=== PATIENT | female | born 1975 | race Caucasian/White ===

== ENCOUNTER 2019-07-15 04:25 | Emergency (ER) | payer BC, SELFPAY ==
[2019-07-15 04:27] VITALS: BP 134/92; PULSE 74; RESP 16; TEMP 36.4; O2SAT 97; BMI 28.3
--- NOTE | 2019-07-15 04:46 | ED.VIS.GEN ---
History of Present Illness Chief Complaint: Mental Health Informant: Patient Narrative: Patient presents for psychiatric evaluation. She states she is a longstanding history of essentially just being scared of everything. She states she has a big fear of being around people. She specifically states this is not related to the current pandemic but is been ongoing for quite some time. She has a hard time functioning in public. She has been on leave from her job since 01 March and is scheduled to go back to work in July. She states as that time when comes closer her symptoms seem to worsen. She currently has an apartment however states that she has been staying with a friend for the past couple of years because she is scared to even be on her own at her apartment. She does admit to intermittent suicidal thoughts. She does report a plan stating I have plenty of pills. She has never attempted in the past. Patient also states nurse that she thinks she has a yeast infection. She has noted some itching and burning with urination and a slight discharge. - Past Medical History (1) Hypothyroid Status: Chronic Past Medical History - Allergies and Home Meds Allergies/Adverse Reactions: Allergies No Known Allergies Allergy (Verified 07/15/19 04:32) Primary Care Physician: Tavo Winslow MD [Primary Care Provider] - Doctors: Scheduled to see a psychiatrist in the [place] area Prior records reviewed: Yes Lives: Friends Smoking Status: Never smoker Review of Systems General: Denies: Chills, Fever Eyes: Denies: Visual changes - bilaterally ENT: Denies: Bilateral ear pain Cardiovascular: Denies: Chest pain Respiratory: Denies: Dyspnea, Cough Gastrointestinal: Denies: Abdominal pain, Nausea, Vomiting, Diarrhea Genitourinary: Denies: Dysuria Musculoskeletal: Denies: Swelling, Extremity Pain Skin: Denies: Rash Neurological: Denies: Headache Psych: Reports: Anxiety, Suicidal thoughts Allergy: Denies: Uticaria Physical Exam Vital Signs/Narrative: Vital Signs Temp Pulse Resp BP Pulse Ox 07/15/19 04:27 97.5 F L 74 16 134/92 H 97 Inital Vital Signs reviewed: Yes General: Well nourished, Well developed Head: Normocephalic Eyes: Perrl, EOMI ENT: Moist mucous membranes Neck: Supple Cardiovascular: Regular rate, Regular rhythm Respiratory: No distress, CTA bilaterally Abdomen: Soft, Nontender, Nondistended : - - Mild yeast noted around the vaginal introitus. No significant discharge noted. No lesions or blisters. Back: Nontender Extremities: Nontender Skin: Normal color, No rash Neurological: Alert, Oriented x3 Psychological: - - Patient with a depressed affect and poor eye contact. She does admit to vague intermittent suicidal thoughts. She does state that she has at least one plan of taking pills. Diagnostic/Tx/Re-eval Laboratory Results 07/15/19 07/15/19 07/15/19 04:50 04:50 04:50 WBC 6.4 RBC 3.88 L Hgb 10.6 L Hct 33.1 L MCV 85.3 MCH 27.3 MCHC 32.0 RDW Std Deviation 42.7 RDW Coeff of Sonia 13.8 Plt Count 344 MPV 9.7 Immature Gran % (Auto) 0.300 Neut % (Auto) 50.2 Lymph % (Auto) 38.2 [place] % (Auto) 7.5 Eos % (Auto) 3.0 Baso % (Auto) 0.8 Absolute Neuts (auto) 3.2 Absolute Lymphs (auto) 2.43 Nucleated RBC % 0 Sodium 138 Potassium 3.6 Chloride 107 Carbon Dioxide 26.0 Anion Gap 5 BUN 15 Creatinine 0.86 Estim Creat Clear Calc 75.90 Est GFR (MDRD) Af Amer 92 Est GFR (MDRD) Non-Af 76 BUN/Creatinine Ratio 17.4 Glucose 99 Calcium 8.5 TSH 10.80 H Serum , Qual Urine Color Urine Clarity Urine pH Ur Specific [place] Urine Protein Urine Glucose (UA) Urine Ketones Urine Occult Blood Urine Nitrite Urine Bilirubin Urine Urobilinogen Ur Leukocyte Esterase Urine RBC Urine WBC Ur Squamous Epith Cells Urine Bacteria Urine Mucus Urine Yeast Urine Opiates Screen Urine Methadone Screen Ur Barbiturates Screen Ur Phencyclidine Scrn Ur Amphetamines Screen U Methamphetamin-MDMA U Benzodiazepines Scrn Urine Cocaine Screen U Cannabinoids Screen Ur Drug Screen Comment Ethyl Alcohol < 3.0 07/15/19 07/15/19 07/15/19 04:50 05:00 05:00 WBC RBC Hgb Hct MCV MCH MCHC RDW Std Deviation RDW Coeff of Sonia Plt Count MPV Immature Gran % (Auto) Neut % (Auto) Lymph % (Auto) [place] % (Auto) Eos % (Auto) Baso % (Auto) Absolute Neuts (auto) Absolute Lymphs (auto) Nucleated RBC % Sodium Potassium Chloride Carbon Dioxide Anion Gap BUN Creatinine Estim Creat Clear Calc Est GFR (MDRD) Af Amer Est GFR (MDRD) Non-Af BUN/Creatinine Ratio Glucose Calcium TSH Serum , Qual NEGATIVE Urine Color Yellow Urine Clarity Cloudy Urine pH 5.0 Ur Specific [place] 1.030 Urine Protein 30 H Urine Glucose (UA) Normal Urine Ketones 5 H Urine Occult Blood 25 H Urine Nitrite Negative Urine Bilirubin 1 H Urine Urobilinogen 4 H Ur Leukocyte Esterase 500 H Urine RBC 5-10 SEEN Urine WBC 10-25 SEEN Ur Squamous Epith Cells 10-25 SEEN Urine Bacteria 0 SEEN Urine Mucus 0 SEEN Urine Yeast 1+ Urine Opiates Screen NEGATIVE Urine Methadone Screen NEGATIVE Ur Barbiturates Screen NEGATIVE Ur Phencyclidine Scrn NEGATIVE Ur Amphetamines Screen NEGATIVE U Methamphetamin-MDMA NEGATIVE U Benzodiazepines Scrn NEGATIVE Urine Cocaine Screen NEGATIVE U Cannabinoids Screen NEGATIVE Ur Drug Screen Comment Ethyl Alcohol - Medical Decision Making Patient was given Diflucan here for her yeast infection. She was given a dose of Synthroid. She does admit that she has not been very compliant in taking her Synthroid. We discussed the importance of taking this medication regularly. Counseling center is been contacted to speak with the patient. Patient will be signed out to oncoming physician pending this evaluation. ED Disposition - Plan for ED Patient: Referrals: Tavo Winslow MD [Primary Care Provider] -
[2019-07-15 04:58] LABS: Absolute Lymphocyte Count 2.43 X10^3/uL (0.83-4.51); Absolute Neutrophil Count 3.2 X10^3/uL (2.0-7.7); Basophil# 0.05 X10^3/uL; Basophil% 0.8 % (0-1); Eosinophil# 0.19 X10^3/uL; Hematocrit 33.1 % (37-47); Hemoglobin 10.6 g/dL (12.0-15.0); Lymphocyte # 2.43 X10^3/ul (4.0); Lymphocyte % 38.2 % (19-41); Mean Corpuscular Hgb 27.3 pg (27.0-32.0); Mean Corpuscular Volume 85.3 fL (81-99); Mean Platelet Vol. 9.7 fl (6.2-12.0); Monocyte# 0.48 X10^3/uL; Monocyte% 7.5 % (0-10); NRBC Flagged by Analyzer 0 % (0-5); Neutrophil # 3.19 X10^3/uL (2.7-7.7); Neutrophil % 50.2 % (47-70); Platelet Count 344 K/mm3 (150-450); RBC Distribution Width CV 13.8 % (11.6-14.6); RBC Distribution Width SD 42.7 fl (35.1-43.9); Red Blood Count 3.88 M/mm3 (4.2-5.4); White Blood Count 6.4 K/mm3 (4.4-11.0)
[2019-07-15 05:08] LABS: Bacteria 0 SEEN /hpf (None Seen); Mucous, Urine 0 SEEN /hpf (<or=2+)
[2019-07-15 05:09] LABS: Color, Urine Yellow (Yellow); Glucose, Dipstick Normal (Normal); Ketone-Dipstick 5 mg/dl (Negative); Leukocyte Esterase-Dipstick 500 /ul (Negative); Nitrite-Dipstick Negative (Negative); Occult Blood-Urine 25 /ul (Negative); Protein-Dipstick 30 mg/dl (Negative); Urine Clarity Cloudy (Clear); Urine Urobilinogen 4 mg/dl (Normal)
[2019-07-15 05:19] LABS: Urine Bilirubin Dipstick 1 mg/dL (Negative)
[2019-07-15 05:21] LABS: Red Blood Cells-Urine 5-10 SEEN /hpf (0-5); Squamous Epithelial Cells - UA 10-25 SEEN /hpf (5-10); White Blood Cells 10-25 SEEN /hpf (0-5)
[2019-07-15 05:22] LABS: Yeast-Urine 1+ /hpf (None Seen)
[2019-07-15 05:32] LABS: Internal QC Validated? YES +Cl - CLEAR BKGD; Pregnancy, Serum, hCG Quali. NEGATIVE Negative
[2019-07-15 05:34] LABS: Anion Gap 5 (5-15); BUN 15 mg/dL (7-18); BUN/Creat Ratio 17.4 RATIO (10-20); Calcium,Total 8.5 mg/dL (8.5-10.1); Chloride 107 mmol/L (98-107); Creatinine, Serum 0.86 mg/dL (0.55-1.02); EST Glomerular Filtration Rate 76 mL/min (>60); Est Glom Filt Rate - Afr Amer 92 mL/min (>60); Glucose 99 mg/dL (74-106); Potassium 3.6 mmol/L (3.5-5.1); Sodium Level 138 mmol/L (136-145)
[2019-07-15 05:35] LABS: Amphetamine Urine VISTA NEGATIVE (<1000 ng/mL); Barbiturate Urine VISTA NEGATIVE (< 200 ng/mL); Benzodiazepine Urine VISTA NEGATIVE (< 200 ng/mL); Cocaine Urine VISTA NEGATIVE (< 300 ng/mL); Ecstacy Urine VISTA NEGATIVE (< 500 ng/mL); Methadone Urine VISTA NEGATIVE (< 300 ng/mL); PCP Urine VISTA NEGATIVE (< 25 ng/mL); THC Urine VISTA NEGATIVE (< 50 ng/mL); Vista UDS pH Range 5
[2019-07-15 05:36] LABS: Alcohol, Blood (Medical)-Serum < 3.0 mg/dL
[2019-07-15] MEDS: Fluconazole 100 MG Tablet 200 MG PO (06:00)
[2019-07-15] MEDS: Levothyroxine 100 MCG Tablet PO (06:01)
--- NOTE | 2019-07-15 06:14 | NURSING ---
TALKED TO CRISIS AT 0613
[2019-07-15 06:47] VITALS: RESP 16
--- NOTE | 2019-07-15 08:56 | ED.VISSUMM ---
- ER Visit Summary Date of Service: 07/15/19 Chief Complaint: [Addendum to initial dictation by Dr. Nava] History of Present Illness: The patient is a 43 F [turned over to me pending evaluation by counseling center. Patient presented to the ER with complaint essentially of anxiety and being afraid of everything. Patient was evaluated by the counseling center and it was not felt she met any criteria for hospitalization at this time. Patient is able to contract for safety. She denied being suicidal at this time. Patient has a appointment with psychiatrist in 10 days.] Physical Examination: [HEENT-PERRLA, EOMI. Cranial nerves II through XII grossly intact. TMs clear. Mucous membranes moist. No adenopathy. Cardiovascular-regular rate and rhythm without murmur or ectopy Lungs-clear to auscultation, chest wall stable without crepitus or subcu emphysema Abdomen-normoactive bowel sounds, soft, nontender, no rebound or rigidity, no peritoneal signs. Extremities-intact ?4, normal range of motion, normal pulses, atraumatic] Test Results: [] Emergency Department Course and Treatment: [] Treatment Plan: [Patient will be given a prescription for Ativan as needed for anxiety. Patient will follow-up with her psychiatrist. Patient advised to return if her condition should worsen anyway or thoughts of suicide or if she felt she could not keep her self safe.] Disposition: [Discharged home in stable condition] Impression: [Anxiety] This note was generated with [employer] dictation software. It may contain incorrect words, spelling, and punctuation that were not noted in review of the chart prior to signing ED Disposition - Plan for ED Patient: Referrals: Tavo Winslow MD [Primary Care Provider] -
--- NOTE | 2019-07-15 08:57 | ED.DEP ---
ED Disposition - Plan for ED Patient: Instructions: ED Stress React Prescriptions: Lorazepam [Ativan] 1 mg PO TID PRN #10 tab PRN Reason: Anxiety Prescription Printed Referrals: Tavo Winslow MD [Primary Care Provider] - Additional Instructions: See your psychiatrist as scheduled
[2019-07-15 09:08] VITALS: BP 115/85; PULSE 73; RESP 18; O2SAT 100
== END 2019-07-15 09:48 | disposition home or self-care (01) ==
LOC: ED 05:10
PROVIDERS: Emergency Provider Emergency Medicine; PCP Family Medicine
DX: F41.9 Anxiety disorder, unspecified (principal); E03.9 Hypothyroidism, unspecified; R45.851 Suicidal ideations
CPT/HCPCS: 36415; 80048; 80307; 80320; 81001; 84443; 84703; 85025; 99283; G0480

== ENCOUNTER 2020-01-08 09:00 | Outpatient (RCR) | payer MEDICAID, SELFPAY ==
--- NOTE | 2020-01-08 09:00 | BH.COMM ---
Communication Note - Communication with Client Communication Note: Met with patient to complete inital paperwork. No significant changes since pre-admission screening. Completed [place] [facility] Screening. She reports last SI occured on 01/06/20. Reports longstanding fleeting SI with thoughts of methods, however no hx of attempts. Reports that thoughts last usually less than a minute, occur 2-5 times weekly, and are easy to control. Protective factor is jehovah's witness. Does have access to a gun however it is not kept in her house. We had a long discussion on reducing access to means and she was encouraged to have family/friends hold onto gun till end of IOP. She was hesitant however stated she understood and keeps it outside her house for that reason. Does not present as imminent danger to herself due to no active SI, plan, intent, or hx of attempts. Protective factors. Future-oriented. No information which would necessite involuntary admission.
--- NOTE | 2020-01-08 09:00 | BH.SGPN.GN ---
Behaviors/Verbalizations/Mental Status: []Client alert and oriented, casually dressed. Eye contact good. Motor activity appropriate. Speech within normal limits. Affect restricted, mood anxious. Thoughts linear, logical, no signs of hallucinations or delusions. Reviewed client?s symptom tracker, no risk or plan for suicide ideation as of 01/08/20. Client Response/Progress/Benefit: []Client responded well to session and listened to other group members throughout group. Client presented as anxious as it was her first day of IOP and stated ?I am not a talker.? Client reports questioning how to think, feel, or behave. Client benefited from group as she was able to see what process group entails and the importance of being vulnerable. Progress noted as client spoke at the end of group, after shaking her head no at the beginning of group to talking. Client will continue IOP to improve daily functioning, prevent decompensation, and increase the use of healthy coping skills. Narrative Note: []
--- NOTE | 2020-01-08 10:05 | BH.SGPN.GN ---
Behaviors/Verbalizations/Mental Status: []Client alert and oriented, casually dressed and appropriately groomed. Eye contact fair. Motor activity appropriate. Speech soft. Affect constricted, mood anxious. Thoughts linear, logical, no signs of hallucinations or delusions. Client Response/Progress/Benefit: []Client receptive to session, passive participant and listened attentively to peers. Listened as the group brainstormed the positive and negative aspects of stress on physical and mental health. Client often nodding at examples of how stress impacts the body. Client related to peers who mentioned issues with memory when stressed. Client declined to share her stress jar, but client mentioned in process group that client feels lost in life which has been causing internal conflict. Seemed to benefit from increased awareness of personal stressors and understanding impact of stress of the mind and body. Client?s first day of IOP. Will continue tx to prevent decompensation, reduce negative thinking, and learn healthy coping skills. Narrative Note: []
--- NOTE | 2020-01-08 11:11 | BH.SGPN.GN ---
Behaviors/Verbalizations/Mental Status: [] Client alert and oriented, casually dressed and groomed. Eye contact good. Motor activity appropriate. Speech within normal limits. Affect congruent, mood depressed and anxious. Thoughts linear, logical, no signs of delusions or hallucinations. Client Response/Progress/Benefit: []Client engaged in session AEB listening attentively to others, providing some input, and taking notes throughout. Client remained attentive during discussion about the 4 A's of managing stress and discussed connecting with the various benefits of each. Identified she often struggles with accepting stressors outside her control and tries to fix them rather than avoid further engaging. Expressed feeling unsure as to which of her current stressors she would like to begin addressing and shared instead that she would like to take some additional time to review her stress jar and better determine which would be best to begin focusing on. Client seemed to benefit from increased awareness of the impact of stress on mental health and increasing repertoire of stress management strategies. Progress limited as it was clients first day in the IOP program. Will continue IOP tx to promote use of healthy coping skills, improve symptom management, as well as prevent decompensation. Narrative Note: []
--- NOTE | 2020-01-09 09:02 | BH.SGPN.GN ---
Behaviors/Verbalizations/Mental Status: []Client alert and oriented, neatly dressed and groomed. Eye contact good. Motor activity appropriate. Speech within normal limits. Affect constricted, mood depressed and anxious Thoughts linear, logical, no signs of hallucinations or delusions. Reviewed client?s symptom tracker, no risk for suicidal ideation, plan, or intent as of 01/09/20. Client reports having thoughts of wishing she did not exist, but denies having thoughts of actually wanting to hurt herself. Client Response/Progress/Benefit: []Client responded well to session, appeared depressed, but was receptive to feedback. Clients feeling worthless this morning and afraid of everything in life. Client received encouragement and emotional support from the group on challenging distortions that lead to feelings of worthlessness. Client shared she has always tied her worth to her ability to work. The group helped client realize other ways she has worth. Appeared to benefit from connecting with peers and gaining emotional support. Will continue IOP tx to prevent decompensation, improve use of healthy coping skills, and reduce distortions. Narrative Note: []
--- NOTE | 2020-01-09 14:41 | BH.MDN_ITS ---
Multi-Disciplinary Note - Note 60-min Individual Time Started:: 10:50 Date: 01/09/20 Purpose of session/treatment goals addressed:: The purpose of this session was to gather information on client's current stressors, symptoms, and treatment goals. Another goal was to build rapport and provide psychoeducation. Eye Contact:: Fair Motor Activity:: Restless Appearance:: Casual Speech:: Tangential, Soft Mood:: Anxious, Dysthymic Affect:: Congruent - tearful at times Thoughts:: Other - thought blocking, No evidence of hallucinations/delusions noted Staff Interventions:: Therapist used active listening and open-ended questions to explore client's current stressors, symptoms, history, and treatment goals. Therapist used strengths perspective to build rapport and gently challenge client?s self-depreciation. Therapist provided psychoeducation on anxiety and depressive maintenance cycles. Therapist gave client encouragement and normalized her anxiety on her first week of IOP. Therapist gave client homework to read an article on maintenance cycles. Client Response:: Client responded well to session, open to meeting with therapist. Client appeared shy at first, but quickly opened up to therapist. Client struggled throughout session with verbalizing her thoughts and often over-apologized. Client shared she feels very lost in life and stated, I feel like I've avoided everything in life and I don't know how to handle life. Client discussed a recent situation in which client developed intimate feelings for a woman at her restorationism which didn't end well. Client shared she grew up [employer] and the restorationism client has been attending doesn't agree with same-sex relationships. Client has been struggling with internal conflict as client reports I don't know why I feel this way...I know it's wrong. Receptive to emotional support and gently challenging perspective. Client was told she is safe and will not be judged at [facility] based on who client is attracted to. Client reports having few supports and often isolating. Client receptive to psychoeducation on maintenance cycles for anxiety and depression. Client admits to isolating and avoiding when feeling anxious and depressed and was able to see how this reinforces these moods. Client willing to work on breaking maintenance cycles and would also like to improve her self-awareness to help client verbalize her needs and understand her own mental health. Risks/Concerns:: Client denies any active suicidal ideations, plan, or intent as of 01/09/20. Client endorses wishes of not existing, but she denies having thoughts of actually wanting to harm herself. Client's lalitha is her protective factor. Progress Toward Goals/Plan:: Client's first week of IOP, is doing well to connect individually, but client reports feeling highly anxious in group settings. Client stated she feels ?lost in life and I don?t know how to think or feel.? Client endorses a depressed mood, confusion, difficulty concentrating, isolative behaviors, anxiety, ruminations, passive wishes of , and avoidance behaviors. Client also has very limited support. Will continue IOP tx to prevent decompensation, increase use of healthy coping skills, and increase self-awareness. Time Stopped:: 11:45
--- NOTE | 2020-01-09 14:42 | BH.MTP ---
Master Treatment Plan - Patient Information Program Physician:: Dr. Smiley Curry Primary Therapist:: Holli Pyle - Psychiatric Diagnoses Psychiatric Diagnoses:: Major depressive disorder, recurrent, severe without psychosis; social anxiety disorder; rule out avoidant personality disorder. Diagnosis Code(s):: F 33.2 - Estimated LOS Estimated LOS (in weeks):: 6 Problem/Goal #1 - Problem/Goal #1 Stated Goal:: Client will decrease depressive symptoms, isolation, negative self-talk, and passive wishes due to major depression disorder. Description of Barriers: Limited support, questioning of her sexual orientation, reports having a hard time understanding her emotions and verbalizing her needs, currently unemployed, and severe anxiety around others. Functional Impact: Client is a 44-year-old woman with a history of MDD and TRACY. Client has no previous psychiatric hospitalizations and has never participated in [facility] level of care. Client was referred by her outpatient therapist, Scott Weir, due to worsening anxiety, isolation, fleeting SI, and mental health impacting client's functioning. Client was on FMLA from work from 03/2019-08/2019 with little to no improvement. Client felt like she could not return to work as client has been so anxious client has not been leaving her house. Client endorses significant anxiety, fear, and panic when around people. Client endorses increased sleep, increased appetite, low energy, anhedonia, and hopelessness. Client is not currently completing her ADLs and has stopped most of her social activities beside quaker on occasion. Client reports limited ability to concentrate and difficulty formulating thoughts. Client denies any active SI, but does endorse frequent wishes she did not exist. Client's symptoms are significantly impacting her occupational, social, and daily functioning. Goal Relevant Strengths/Supports: Client is motivated and open to getting mental health treatment. Client reports her lalitha is a protective factor. Client is established with outpatient counseling and psychiatry. - Objectives Objective #1 Stated Objective: Client will learn and utilize 2-3 healthy coping strategies to better manage depressive symptoms as shown by a reduced DSM-5 scores for depression. Interventions: Through group and individual sessions, therapist will help client identify triggers and warning signs of depression and emotional dysregulation including emotional, physical, and behavioral changes. Therapist will teach client various coping skills to manage her symptoms and give client tangible resources to use to regulate emotions. Therapist will use cognitive restructuring techniques and help client gain awareness of negative thoughts that reinforce guilt and depression. Therapist will provide psychoeducation on maintenance cycles and help client learn ways to break unhealthy maintenance cycles. Therapist will help client incorporate behavioral activation and assist client in setting SMART goals. Discharge Criteria: Client will have met this goal when she can report learning and using at least 2 coping skills to manage depressive symptoms. Additionally, client will have met this goal when her depressive symptoms have reduced on the DSM-5 scale. Target Date: 02/19/20 Review Date: 02/05/20 Status: open Objective #2 Stated Objective: Client will identify at least 2-3 negative self-talk messages used to reinforce negative core beliefs and replace thoughts with positive, realistic messages. Interventions: Therapist will help client identify distorted, negative beliefs about self and replace with more realistic, affirmative messages. Therapist will use CBT to help client increase insight to the connection between thoughts, emotions, and behaviors. Therapist will encourage client to practice thought challenging. Discharge Criteria: Client will have achieved this goal when can verbalize at least 2 negative self-talk messages and effectively replace those thoughts with affirmative messages. Target Date: 02/19/20 Review Date: 02/05/20 Status: open Problem/Goal #2 - Problem/Goal #2 Stated Goal:: Client will reduce social anxiety and increase communication skills. Description of Barriers: Limited support, questioning of her sexual orientation, reports having a hard time understanding her emotions and verbalizing her needs, currently unemployed, and severe anxiety around others. Functional Impact: Client is a 44-year-old woman with a history of MDD and TRACY. Client has no previous psychiatric hospitalizations and has never participated in [facility] level of care. Client was referred by her outpatient therapist, Scott Weir, due to worsening anxiety, isolation, fleeting SI, and mental health impacting client's functioning. Client was on FMLA from work from 03/2019-08/2019 with little to no improvement. Client felt like she could not return to work as client has been so anxious client has not been leaving her house. Client endorses significant anxiety, fear, and panic when around people. Client endorses increased sleep, increased appetite, low energy, anhedonia, and hopelessness. Client is not currently completing her ADLs and has stopped most of her social activities beside quaker on occasion. Client reports limited ability to concentrate and difficulty formulating thoughts. Client denies any active SI, but does endorse frequent wishes she did not exist. Client's symptoms are significantly impacting her occupational, social, and daily functioning. Goal Relevant Strengths/Supports: Client is motivated and open to getting mental health treatment. Client reports her lalitha is a protective factor. Client is established with outpatient counseling and psychiatry (Scott Weir and Dr. Peter). - Objectives Objective #1 Stated Objective: Client will identify 2-3 anxiety triggers and 2 coping skills to use when feeling anxious to manage anxiety as shown by decreasing her DSM-5 scores for anxiety. Interventions: Therapist will provide education on anxiety, avoidance behaviors, and maintenance cycles. Therapist will help client explore personal symptoms and warning signs of anxiety. Therapist will teach client coping skills to improve emotional regulation, mindfulness, and distress tolerance to help client cope with anxiety in the moment. Discharge Criteria: Client will have accomplished this goal when she can identify at least 2 triggers and report using 2 coping skills to manage anxiety. Additionally, client will have accomplished this goal when her DSM-5 scores show a reducion for anxiety. Target Date: 02/19/20 Review Date: 02/05/20 Status: open Objective #2 Stated Objective: Client will reduce avoidance behaviors that reinforce anxiety by setting 1-2 small exposure goals a week to increase socialization, increase mastery, and reduce anxiety over time. Interventions: Through group and individual sessions, client will learn about the benefits of setting exposure goals to overcome anxiety-producing situations. Therapist will help client create a fear-ladder that will act as a guide in confronting anxiety-producing situations. The fear-ladder will go from least anxiety-producing to most anxiety-producing so client can build confidence. Therapist will help client set SMART goals and challenge barriers. Therapist will use cognitive restructuring techniques and help client gain awareness of negative thoughts that reinforce avoidance behaviors and fear of judgement. Therapist will help client incorporate mindfulness, opposite action, and self-talk strategies to manage anxiety. Discharge Criteria: Client will have accomplished this goal when she can report accomplishing at least one small exposure goal a week. Additionally, client will be able to report decreased avoidance behaviors. Target Date: 02/19/20 Review Date: 02/05/20 Status: open
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
--- NOTE | 2020-01-10 10:14 | BH.NA ---
Physical Data - Vital Signs Pulse Rate: 62 Blood Pressure: 135/87 - Height/Weight Height: 1.65 m Weight:: 74.843 kg Weight in Pounds: 165.0 lbs Current Medication Compliance - Medication Compliance Do you take your medication as prescribed?: No - stopped taking Latuda last week Nutritional History - Appetite Nutritional Instructions:: If client shows signs of a swallowing problem, weight change of 10 pounds or more in the last month, or is on a diabetic diet, the physician will review and request a dietitian consult, as appropriate. All unintentional weight loss will be referred to the physician for decision on need for dietitian consult. Describe your appetite:: Good Additional nutritional information:: Client states weight gain of 10-15lbs in the last year. Functional Assessment - Sleep Pattern Describe any problems with sleeping: Client states she was sleeping better while on her Latuda, but states she noticed decrease in sleep since stopping her Latuda last week. Client states the last few nights she has slept about 4 hours per night. - Activities Motor Activity:: Functional Sensory/Communication Assess - Vision Problems Do you have any vision problems?: Glasses - Communication Problems Do you have difficulty understanding what people are saying?: Yes Medical Problems/History - Metabolic Conditions Metabolic: Hypothyroidism - Pain Assessment Do you have acute or chronic pain?: No Surgical History - Surgical History Have you had any surgeries? If so, list type and date:: Yes - breast biopsies Substance Abuse - Substance Abuse Please describe substance abuse in the last 30 days:: Client reports occasional social alcohol use. Client denies tobacco or substance use. Client states she sips on coffee all day. Mental Status Summary - Mental Status Significant Findings/Observations on Appearance and Mood:: Client is alert and oriented x4. Client is casually groomed. Client is wearing a mask due to Covid19 pandemic. Client's voice has normal rate and volume. Client makes good eye contact. Client appears mildly depressed and anxious. Client has normal processing. Client denies delusions/hallucinations. Client states she has fleeting SI, stating that she would not follow through due to her yarsani and fear of where I would go if I did it. Suicide Assessment - Suicidal Ideation Are you currently or have you been suicidal in the past?: Yes Suicidal Intentional Rating Scale (SIRS): Current suicidal thoughts/No plan/Contracts for safety Physician Notification: If Active suicidal thoughts/Will not contract for safety is checked, contact physician and document in the Physician Notification section below. Past Psychiatric History - MH Treatment Hx Past Psychiatric Medications:: Client was on Ativan for 8 years. Wellbutrin, Zoloft, and Celexa also. Age of first mental health symptoms: Client states she was diagnosed with anxiety and depression in her 20's. Describe (age, circumstance, etc) any past hospitalizations: None. Current providers for mental health treatment (counselor, psychiatrist, registered nurse hh case manager, etc.): therapy and psychiatry at [facility]. Fall Risk Assessment - Age Age: Less than 60 - Mental Status Mental Status: Willing & able to ask for assistance when needed - Physical Status Physical Status: No problems - Impairments Impairments: None - Elimination Elimination: Continent AND independent - Gait or Balance Gait or Balance: Walks independently - Hx of Falls History of falls in the past 6 months: No known history - Medications/Substances Psychotropics:: Antidepressants Medications/substances used within the past 24 hours or ordered to administer: 1-2 of the medications/substances listed above - Total Score Total Points:: 1 RN Summary of Impressions - Impressions Recommendations: Include psychiatric and medical issues, treatment planning recommendations, and discharge planning needs. Impressions: Psychiatric Issues: Major depressive disorder, recurrent, severe without psychosis; social anxiety disorder; rule out avoidant personality disorder - Level of Care How do the client's current symptoms and functional deficits support need for this level of care?: Client was referred to IOP by outpatient therapist due to anxiety and fleeting SI. Client states her mental health has been declining over the past couple of years. Client states she has taken several leaves from work over the last couple of years for mental health, most recent from March 2019 until August 2019. She did not feel she could return to work in August so she quit her employment of 22 years. Client reports isolation, stating she rarely lives her house. Client also endorses feelings of fear, panic when in social situations, avoidance, decreased energy, hopelessness, and anhedonia. Client reports contiuned fleeting SI, stating that the thought crosses her mind and then leaves. Client states she would not follow through and does not have specific plan, stating I would be afraid of where I would go if I actually did it. IOP will promote gains and prevent further decompensation while providing social support and skills training.
[2020-01-10 10:57] VITALS: BP 135/87; PULSE 62
--- NOTE | 2020-01-10 11:05 | BH.SGPN.GN ---
Behaviors/Verbalizations/Mental Status: []Client alert and oriented, neatly dressed and groomed. Eye contact fair. Motor activity appropriate. Speech within normal limits. Affect constricted, mood anxious. Thoughts linear, logical, no signs of hallucinations or delusions. Client Response/Progress/Benefit: []Client engaged in session AEB listening attentively to others and actively participating in small group discussion. Client did well to participate during the activity in which participants were challenged to eliminate various items through group consensus. Client contributed to discussion of the barriers that occurred during the activity as well as the conflict resolution strategies. Client reported during the activity she struggled at times with being decisive. Client reviewed the worksheet on ten strategies to cope with conflict and client selected wanting to work on communicating her needs assertively. Client?s firs week of IOP tx, progress noted as client?s SI has decreased since her first day. Will continue IOP tx to prevent decompensation of anxiety and depression, increase self-awareness, and reduce negative thoughts. Narrative Note: []
--- NOTE | 2020-01-12 09:00 | BH.SGPN.GN ---
Behaviors/Verbalizations/Mental Status: []Client alert and oriented, casually dressed. Eye contact poor. Motor activity appropriate. Speech within normal limits. Affect constricted, mood anxious and dysthymic. Thoughts linear, logical, no signs of hallucinations or delusions. Reviewed client?s symptom tracker, Client scored herself at her baseline for suicidal risk and intent. Client Response/Progress/Benefit: []Client responded well to session, engaged and participated throughout discussion. Client reported feeling ?anxious? today as she shared she is hesitant of the IOP program working. Therapist explained the importance of focusing on the client?s wellbeing and mental health first rather than comparing other?s progress to her own. Client reported feeling ?proud? of herself as IOP has helped her feel less anxious around others when she is cleaning at her job and she got out of bed. Client said she is feeling ?stuck with the negative thoughts? and is fearful she will not understand the healthy coping skills IOP has to offer. Client benefited from group as other group members could give positive feedback about IOP and could relate to what she is feeling. Progress noted as client felt less anxious around others. Client will continue IOP to better regulate emotions, increase the use of healthy coping skills, and improve daily functioning. Narrative Note: []
--- NOTE | 2020-01-12 11:15 | BH.SGPN.GN ---
Behaviors/Verbalizations/Mental Status: []Client alert and oriented, appears to be well groomed, but wore the same pants all week. Eye contact good. Motor activity appropriate. Speech within normal limits. Affect constricted, mood anxious and depressed. Thoughts linear, logical, no signs of hallucinations or delusions. Client Response/Progress/Benefit: []Client was engaged throughout AEB contribution to discussion. Client reported her comfort zone is watching TV, sleeping, and isolating. Client reports wanting to work on being more productive at home and talking to people at [employer]. Shared small steps she can take to step out of comfort zone as using A.C.E to accomplish tasks at home and opposite action to reach out to one person. Appeared to benefit from psychoeducation and working with the group to brainstorm strategies to promote growth and get out of one?s comfort zone. Client will continue IOP tx reduce intensity, duration, and frequency of anxiety to improve daily functioning and relationships. Narrative Note: []
--- NOTE | 2020-01-12 15:21 | BH.COMM ---
Communication Note - Communication with Client Communication Note: Therapist checked-in with client as client was expressing anxiety about the weekend. Discussed a goal setting strategy called A.C.E which client was receptive to trying this weekend.
--- NOTE | 2020-01-15 09:05 | BH.SGPN.GN ---
Behaviors/Verbalizations/Mental Status: [] Client alert and oriented, casual dress, hygiene tended to. Eye contact fair - looking down a majority of session. Motor activity appropriate. Speech within normal limits, quiet. Affect constricted, mood depressed and anxious. Thoughts linear, logical, no signs of hallucinations or delusions. Reviewed client?s symptom tracker, suicidal ideation reported as a 4/5 which is consistent with pt baseline, denies current plan or intent as of today. Client Response/Progress/Benefit: [] Client receptive of session, actively listening throughout. Declined to process with the group and appeared to be struggling significantly with intrusive thoughts impacting overall engagement and mood. Client continues to struggle with self-acceptance and distorted thought patterns which reinforce depressive sx. Client appeared to benefit from group support and structure. Recommended continued IOP tx to encourage self-care, improve application of healthy coping skills, continue to work on depression and anxiety management, and prevent decompensation. Narrative Note: []
--- NOTE | 2020-01-15 13:53 | BH.MDN ---
Multi-Disciplinary Note - Note 60-min Individual Time Started:: 10:49 Date: 01/15/20 Purpose of session/treatment goals addressed:: The purpose of this session was to work on goal #1 of client's treatment plan. Eye Contact:: Fair Motor Activity:: Appropriate Appearance:: Casual Speech:: Soft Mood:: Anxious, Dysthymic Affect:: Constricted Thoughts:: Other - difficulty formulating thoughts Staff Interventions:: Therapist used CBT to help client increase insight to the connection between thoughts, emotions, and behaviors. Therapist helped client incorporate behavioral activation and assist client in setting SMART goals. Client Response:: Client responded well to session, open to meeting with therapist. Client reports feeling very down today due to not doing much of anything all weekend. Client shared aside from going to [employer] Wednesday and visiting with her brother, client laid on her couch all weekend. Client endorses ruminations and self-depreciation about her choices over the weekend. Receptive to thought challenging by therapist and reported being challenging helped her mood. Client receptive to psychoeducation on the benefits of setting SMART goals. Client set two goals for today including walking for 20 on her treadmill and cleaning in her kitchen for 30 minutes. Client also wrote out positive affirmations to read to help client combat distortions that reinforce depression. Risks/Concerns:: Client reports chronic thoughts about not wanting to exist with occasional fleeting SI. Client denies any active SI, plan, or intent today and reports ability to maintain safety. Client reports her lalitha is her protective factor. Future oriented. Progress Toward Goals/Plan:: Client's attendance has been consistent and client connets well with the topics in group. No significant changes in client's mood and client reports no improvements in functioning. Client endorses a depressed mood, confusion, difficulty concentrating, isolative behaviors, anxiety, ruminations, passive wishes of , and avoidance behaviors. Will continue IOP tx to prevent decompensation, increase use of healthy coping skills, and increase self-awareness. Time Stopped:: 11:41
--- NOTE | 2020-01-16 10:09 | BH.SGPN.GN ---
Behaviors/Verbalizations/Mental Status: []Client alert and oriented, casually dressed and appropriately groomed. Eye contact good. Motor activity appropriate. Speech within normal limits. Affect constricted, mood anxious and depressed, Thoughts linear, logical, no signs of hallucinations or delusions. Client Response/Progress/Benefit: []Client receptive of session, attentive and taking notes throughout though remained mostly passive during discussion. Group discussed benefits of healthy communication on mental health which included: let?s others know what we are feeling, gets our needs met, prevents avoidable problems, improves relationships, and helps establish healthier boundaries. Group additionally discussed potential barriers to communication including: shutting down, passive-aggressive communication, assumptions, being vague, and poor emotional regulation. Client noted connecting with barriers of shutting down, agreeing with others even when she has different opinions, and not making her voice heard. Remained attentive during psychoeducation on the four communication styles. Client self-reports identifying most with the passive communication style. Shared that this has resulted in client blaming herself and feeling at fault when things don?t go well or as planned. Expressed this has reinforced her sx of depression. Benefited from increased insight regarding own communication style and impacts this has on overall mental health. Progress variable as client continues to struggle with negative or anxious thoughts that reinforce mental health sx. Client will continue in IOP to improve healthy coping and ability to apply thought challenge skills, as well as reduce depressive and anxious sx, and prevent decompensation. Narrative Note: []
--- NOTE | 2020-01-16 11:11 | BH.SGPN.GN ---
Behaviors/Verbalizations/Mental Status: []Client alert and oriented, neatly dressed and groomed. Eye contact good. Motor activity appropriate. Speech soft. Affect constricted, mood anxious and depressed. Thoughts linear, logical, no signs of hallucinations or delusions. Client Response/Progress/Benefit: []Client responded well to session AEB client listening attentively to others and providing input during small group discussion on the pay offs and costs of the different communication styles. Attentive during psychoeducation on assertiveness strategies to improve communication, and client selected an assertiveness skill to practice. Client selected the skill assert needs clearly and express emotions. Client plans to do this by working on being direct with her needs and using self-assured language. Client seemed to benefit from increasing awareness of healthy strategies to improve communication. Will continue IOP tx to prevent decompensation, combat distortions, and improve social functioning. Narrative Note: []
--- NOTE | 2020-01-16 15:14 | BH.COMM_ITS ---
Communication Note - Communication with Client Communication Note: Client reported some COVID-like symptoms and did not want to schedule an appointment with her primary care physician. Client was encouraged to quarantine for 10 days per [facility] infection control. Client will return to [facility] on 01/26/20.
--- NOTE | 2020-01-29 09:00 | BH.SGPN.GN ---
Behaviors/Verbalizations/Mental Status: []Client alert and oriented, casually dressed. Eye contact poor. Motor activity appropriate. Speech within normal limits. Affect constricted, mood anxious and euthymic. Thoughts linear, logical, no signs of hallucinations or delusions. Reviewed client?s symptom tracker, no risk or plan for suicide ideation as of 01/29/20. Client Response/Progress/Benefit: []Client responded well to session, actively listened to others and engaged in self-check in. Client reported feeling ?anxious? after her check-in. Client was anxious when speaking AEB short and quick breaths took place as client talked. Client shared ?feeling useless? during Thanksgiving as client shared she is unable to cook and feels that she cannot help others prepare food. Client went to her anglican to help set up [place] decorations and used opposite action as client reported having negative thoughts and ?trembling? in the vehicle before going inside. Client shared she was ?happy and proud? of herself for going after she went. Progress noted as client was able to speak to other group members about stressors and being vulnerable to share thoughts and feelings. Benefited from group as other group members were positive and insightful with client. Client will continue IOP to reduce negative thoughts, increase the use of healthy coping skills, and improve daily functioning. Narrative Note: []
--- NOTE | 2020-01-29 10:19 | BH.SGPN.GN ---
Behaviors/Verbalizations/Mental Status: []Client alert and oriented, casually dressed and groomed. Eye contact good. Motor activity appropriate. Speech within normal limits. Affect constricted, mood dysthymic and anxious. Thoughts linear, logical, no signs of hallucinations or delusions. Client Response/Progress/Benefit: []Client was an attentive participant in group discussion and active during activity. Client agreed with peers that there are internal and external forces in life which impact personal growth. Group worked together to come up with common negative forces in life which can hold them back from growth. These included; cognitive distortions, toxic people, not setting boundaries, and holding in emotions. Group then worked together to identify common positive forces which help them grow. These included; healthy coping skills, positive support, positive self-talk, and self-care. Client demonstrated progress during the activity as client reported experiencing anxiety in the moment and was able to cope. Benefited AEB increased insight and awareness on the impact of negative and positive forces on mental wellness. Will continue IOP tx to prevent further decompensation, increase application of healthy coping skills, and improve mood stability. Narrative Note: []
--- NOTE | 2020-01-29 10:55 | BH.MDN_ITS ---
Multi-Disciplinary Note - Note 60-min Individual Time Started:: 12:16 Date: 01/29/20 Purpose of session/treatment goals addressed:: The purpose of this session was to work on goal #1 of client's treatment plan. Another goal was to discuss healthy versus unhealthy supports. Eye Contact:: Fair Motor Activity:: Appropriate Appearance:: Casual - Client wears the same pants each time she attends [facility]. Speech:: Tangential, Soft, Other - often uses humor to deflect Mood:: Anxious, Depressed Affect:: Flat Thoughts:: Other - thought blocking, No evidence of hallucinations/delusions noted Staff Interventions:: Therapist used cognitive restructuring techniques and helped client gain awareness of negative thoughts that reinforce guilt and depression. Therapist provided psychoeducation on maintenance cycles and reviewed ways to break unhealthy maintenance cycles. Therapist helped client incorporate behavioral activation by setting SMART goals. Therapist used cognitive restructuring techniques to assist client in combatting distortions and practicing positive affirmations. Therapist helped client gain awareness of healthy versus unhealthy supports. Therapist gave client an accomplishment log for homework. Client Response:: Client responded well, open to meeting with therapist. Client reports feeling mixed emotions today. Client has experienced worsening symptoms and functioning since being gone from [facility], but client also reports feeling clearer on my path in [place] which makes client feel somewhat better. Client stated while she was gone from [facility], client did not leave her house very much and did not accomplish many goals. Client endorses guilt, ruminations, and self- depreciation about this. Receptive to thought challenging and setting new goals to break current depressive cycle. Client's goal today is to clear out her kitchen sink and to begin working on her accomplishment log. Client states she has extreme difficulty getting herself to complete tasks and reports belief that having a log to keep track will hold client accountable. Client willing to write out affirmational statements to help combat client's persistent distortions. Client's affirmational statements included: I don't have to do it all, just take the first step, I don't need to be scared, and some people care about me. Client had difficulty challenging the distortion that nobody cares about me but was eventually able to after identifying some of her supports. Client admits that she has unrealistic expectations for herself which causes all or nothing thinking and giving up at times. Client understands that thought challenging and reframing will take time and effort. Risks/Concerns:: Client reports thoughts of what's the point of life, but client denies that these thoughts are suicidal ideations. [place] continues to be a protective factor and client is future oriented. Reports ability to maintain safety as of 01/29/20. Progress Toward Goals/Plan:: Client had missed IOP from 01/15-01/28 due to illness and needing to quarantine. Client reports decompensation of depressive symptoms during that time as client did not have IOP structure and support. Client currently endorses a depressed mood, constant ruminations, avoidance behaviors, confusion, lack of motivation, isolative behaviors, and poor functioning. Client will continue IOP tx to prevent further decompensation, challenge distorted thought patterns, and improve daily functioning. Time Stopped:: 13:10
== END 2020-01-29 23:59 ==
LOC: BHIOP 09:00
PROVIDERS: PCP Family Medicine; Referring Provider Psychiatry & Neurology Psychiatry; Visit Provider Psychiatry & Neurology Psychiatry
DX: F33.2 Major depressive disorder, recurrent severe without psychotic features (principal); F41.8 Other specified anxiety disorders
CPT/HCPCS: 90792; H0035; H2012; H2020; T1002; 90837

== ENCOUNTER → 2020-01-10 12:31 | Outpatient (CLI) | payer BC, MEDICAID, SELFPAY ==
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
--- NOTE | 2020-01-10 13:19 | BH.DR.ITP ---
Initial Treatment Plan - Patient Information Visit Information: ADMISSION DATE: EXPECTED LOS: 4-6 weeks - Problems/Symptoms Problem #1:: Depression Symptom:: Sadness, hopelessness, worthlessness, low energy, anhedonia, suicidal ideation Problem #2:: Anxiety Symptom:: Fear and panic when around people, worry, rumination
[2020-01-10 13:20] LABS: Absolute Lymphocyte Count 2.03 X10^3/uL (0.83-4.51); Absolute Neutrophil Count 2.6 X10^3/uL (2.0-7.7); Basophil# 0.06 X10^3/uL; Basophil% 1.1 % (0-1); Eosinophil# 0.17 X10^3/uL; Eosinophils% 3.2 % (0-5); Hematocrit 35.1 % (37-47); Hemoglobin 10.7 g/dL (12.0-15.0); Lymphocyte # 2.03 X10^3/ul (4.0); Lymphocyte % 38.7 % (19-41); Mean Corp Hgb Conc 30.5 g/dL (32-36); Mean Corpuscular Hgb 27.1 pg (27.0-32.0); Mean Corpuscular Volume 88.9 fL (81-99); Mean Platelet Vol. 9.8 fl (6.2-12.0); Monocyte# 0.39 X10^3/uL; Monocyte% 7.4 % (0-10); NRBC Flagged by Analyzer 0 % (0-5); Neutrophil # 2.58 X10^3/uL (2.7-7.7); Neutrophil % 49.4 % (47-70); Platelet Count 480 K/mm3 (150-450); RBC Distribution Width CV 14.4 % (11.6-14.6); RBC Distribution Width SD 46.2 fl (35.1-43.9); Red Blood Count 3.95 M/mm3 (4.2-5.4); White Blood Count 5.2 K/mm3 (4.4-11.0)
[2020-01-10 13:48] LABS: Vitamin D,25 Hydroxy 24.7 ng/mL
[2020-01-10 13:58] LABS: T4 Total, Thyroxin 10.3 ug/dL (4.8-13.9); Thyroid Stim Hormone (TSH) 2.21 uIU/mL (0.358-3.74)
== END ==
PROVIDERS: PCP Family Medicine; Referring Provider Psychiatry & Neurology Psychiatry; Visit Provider Psychiatry & Neurology Psychiatry
DX: E55.9 Vitamin D deficiency, unspecified (principal)
CPT/HCPCS: 36415; 82306; 84436; 84443; 85025

== ENCOUNTER 2020-01-31 09:00 | Outpatient (RCR) | payer MEDICAID, SELFPAY ==
[2020-01-30 00:41] VITALS: BP 135/87; PULSE 62
--- NOTE | 2020-01-31 09:00 | BH.SGPN.GN ---
Behaviors/Verbalizations/Mental Status: []Client alert and oriented, neatly dressed. Eye contact fair to poor. Motor activity appropriate. Speech within normal limits. Affect flat, mood anxious and dysthymic. Thoughts linear, logical, no signs of hallucinations or delusions. Reviewed client?s symptom tracker, no risk or plan for suicide ideation as of 01/31/20. Client Response/Progress/Benefit: []Client responded well to session, engaged and participated throughout discussion. Client reported feeling ?lost? after sharing she thinks she is not making any progress. Benefited from group as other group members offered positive feedback about focusing on the present moments, identifying small wins daily, practicing affirmations, and not comparing progress to others in IOP program. Client stated she cries to feel emotions, but cannot decide if the crying is a positive or negative experience. Client also noted a trigger when her mother puts her down about not having children. Progress noted as client was able to reframe the negative thoughts into a positive perspective with the help of other group members. Client will continue IOP to improve daily functioning, increase the use of healthy coping skills, and reduce negative thinking. Narrative Note: []
--- NOTE | 2020-01-31 11:11 | BH.SGPN.GN ---
Behaviors/Verbalizations/Mental Status: []Client alert and oriented, neatly dressed and groomed. Eye contact fair. Motor activity appropriate. Speech within normal limits. Affect flat, mood depressed. Thoughts linear, logical, no signs of hallucinations or delusions. Client Response/Progress/Benefit: []Client engaged participant as evidenced by client taking notes throughout discussion and listening attentively to peers. Client participated in the discussion of how each resiliency component can help increase personal resiliency. Client identified current resiliency traits client currently possesses and how these can continue to help client in treatment. Client identified personal resilience traits to include accepting change is a part of living, moving towards goals, and self-awareness. Client shared she has recently experienced several hardships which has made it hard for client to remind herself of personal resilience traits. Client appeared to benefit from connecting with peers and sitting with uncomfortable feelings rather than avoiding them. Progress noted as client shared when prompted. Client has missed two weeks of IOP due to quarantine which has resulted in regression in symptom management. Will continue IOP tx to prevent further decompensation. Narrative Note: []
--- NOTE | 2020-01-31 12:54 | PCM.BH.PN_ITS ---
Progress Note Progress Note: History of Present Illness/Interim History: [] Patient is a 44-year-old female with a history of depression and anxiety who is seen in follow-up at the [facility] behavioral health IOP program. I last saw the patient about 3 weeks ago and at that time her Prozac was increased to 80 mg p.o. daily over the course of several weeks. The patient states that she feels she may be a little more hopeful and a little less depressed now but still feels that she is feeling somewhat hopeless and worthless. She is having suicidal ideation which is passive at times but it has decreased now down to once a week where is before it was daily. She still is having a hard time leaving the house due to some anxiety. She is still living alone and is not working. She still feels that she would never kill herself due to her lutheran believes. She is still upset over the issue with her possibly obsessing over another woman at [employer]. This was noticed by a number of [employer] members. She still does attend that [employer] and is still welcome at that [employer] and her balance assembler is a big source of support. She denies active suicidal ideation, homicidal ideation, hallucinations or delusions. Current Psychiatric Medications: [] Prozac 80 mg p.o. daily (times about 2 to 3 weeks now). She discontinued Latuda around January 07, 2020 due to side effects. Laboratory: I obtained lab work on the patient was done January 10, 2020 her hemoglobin was 10.7 and she was supposed to get follow-up blood work for that her anemia ordered by her primary care doctor but she has not obtained this yet. The patient was counseled to get this follow-up blood work so that she can start feeling better from her anemia. Her thyroid function labs were normal and her vitamin D was 24.7 which is still low. She is taking some vitamin D2 but I did send in a prescription for vitamin D2 50,000 units, 1 p.o. weekly. So 2 prescriptions were sent in. The patient agrees to get her follow-up blood work on her anemia for primary care doctor. She agrees to continue to follow-up with her outpatient providers Mental Status Examination: [] Patient is a 44-year-old female who is seen wearing a mask due to the pandemic. She has no psychomotor agitation or retardation. Eye contact is good. Speech is normal rate and rhythm and fluent with no pressure. Mood is depressed. Affect is constricted. Thought process is goal-directed and organized. Thought content: She still has some passive suicidal ideation but this has decreased to about once a week now and she feels a little hopeful. Impulsivity low to moderate. Judgment intact. Insight: Good. Diagnoses: [] Whittaker I: [] Major depressive disorder, recurrent, severe without psychosis; social anxiety disorder Whittaker II rule out avoidant personality disorder Whittaker II: [] Whittaker III: [] Hypothyroidism Whittaker IV:[]] Primary support and work issues Plan: [] The patient will continue the IOP program at [facility] as the structure, support, education, individual and group therapy will hopefully prevent worsening of her symptoms which could require hospitalization. The patient felt safe during the interview and if at any time she does not feel safe she will let us know or go to the emergency room. The risk, options, possible complications and side effects of the medications were discussed with the patient and she understands and accepts these. She agrees to start a low- dose of Abilify, 2 mg p.o. every morning. Prescription was also sent in for vitamin D2 50,000 IU p.o. weekly. The patient agrees to get her follow-up blood work on her anemia for primary care doctor. She agrees to continue to follow- up with her outpatient providers. I will see the patient in follow-up in 1 to 2 weeks.
--- NOTE | 2020-02-05 10:12 | BH.SGPN.GN ---
Behaviors/Verbalizations/Mental Status: []Client alert and oriented, neatly dressed and groomed. Eye contact good. Motor activity appropriate. Speech within normal limits. Affect constricted, mood anxious. Thoughts linear, logical, no signs of hallucinations or delusions. Client Response/Progress/Benefit: []Client was an active participant as evidenced by providing input throughout discussion. Client connected with the discussion about how distorted thought patterns can reinforce mental health symptoms and impact self-worth. Client shared a personal example of how distorted thinking has impaired client?s social functioning. Client noted that she connects with mental filter, mind-reading, and overgeneralizations. Client shared that distortions often lead to self-criticism and can keep people stuck. Appeared to benefit from increasing awareness of cognitive distortions and how they can impact emotions and behaviors. Will continue IOP tx to prevent decompensation, challenge distorted thought patterns, and increase application of healthy coping skills. Narrative Note: []
--- NOTE | 2020-02-05 11:15 | BH.SGPN.GN ---
Behaviors/Verbalizations/Mental Status: []Client alert and oriented, casual dress, hygiene tended to. Eye contact fair. Motor activity appropriate. Speech within normal limits. Affect constricted, mood depressed and anxious. Thoughts linear, logical, no signs of hallucinations or delusions. Client Response/Progress/Benefit: []Client was an engaged participant AEB client nodding head to others comments, taking notes, and completing worksheet. Client attentive during psychoeducation and additional discussion on cognitive distortions. Client engaged in discussion about how to reframe distorted thoughts into more realistic, rational statements. Client shared her distorted thought is I'm never going to be able to function. Client able to reframe distorted thought to There are many things I am able to do and have received compliments about my work. Client seemed to benefit from practicing identifying and reframing distorted thoughts. To continue IOP to increase utilization of healthy coping, improve view of self, and prevent decompensation. Narrative Note: []
--- NOTE | 2020-02-05 14:10 | BH.MDN_ITS ---
Multi-Disciplinary Note - Note 60-min Individual Time Started:: 09:10 Date: 02/05/20 Purpose of session/treatment goals addressed:: The purpose of this session was to work on goal #1 of client's tx plan. Another goal was to address barriers to progress and problem-solve solutions. Eye Contact:: Fair Motor Activity:: Appropriate Appearance:: Neat Speech:: Rambling, Other - often uses humor to deflect Mood:: Dysthymic Affect:: Constricted Thoughts:: Other - thought blocking, No evidence of hallucinations/delusions noted Staff Interventions:: Therapist used cognitive restructuring techniques and helped client gain awareness of negative thoughts that reinforce guilt, lack of motivation, and depression. Therapist used cognitive restructuring techniques to assist client in combatting distortions and use self-compassion. Therapist used motivational interviewing techniques and helped client incorporate behavioral activation by setting goals for self-care, home, and group. Client Response:: Client responded well to session, open to meeting with therapist. Client stated she feels depressed and frustrated today due to lack of progress and inability to make myself do anything. Client stated she still has not cleaned her apartment or accomplished other goals she set in [facility]. Client began using labeling and self-depreciating language. Client reported she wished staff at [facility] would be harder on me as client feels she does not deserve to be encouraged. Through processing, client able to gain awareness that because client has negative core beliefs, client expects others to treat her that way as well. Discussed how self-compassion and reframing negative self-talk yields the best results for better self-worth. Additionally, client receptive to thought challenging internal stigma client has about depression. Client able to then come up with realistic goals for herself. Client's self-care goal is to journal, her home goal is to clean the kitchen with her mother's help, and her group goal is to share early in first group. Risks/Concerns:: Client has chronic thoughts of wishing she did not exist, but she denies any suicidal ideations, plan, or intent. Client's lalitha is her protective factor and client reports ability to maintain safety as of 02/05/20. Progress Toward Goals/Plan:: Client continues to report limited progress and self-report of lack of follow through with homework and tx goals. Client was receptive to thought challenging and practicing self-compassion today which was a positive step in her tx. Client currently endorses a depressed mood, constant ruminations, avoidance behaviors, confusion, lack of motivation, isolative behaviors, and poor functioning. Client will continue IOP tx to prevent further decompensation, challenge distorted thought patterns, and improve daily functioning. Time Stopped:: 10:08
--- NOTE | 2020-02-07 09:05 | BH.SGPN.GN ---
Behaviors/Verbalizations/Mental Status: [] Eye contact is good. Motor activity is appropriate. Appearance is causal. Speech is Appropriate. Mood is anxious. Affect is congruent. Thoughts are linear and logical. No evidence of psychosis. Reviewed daily check in sheet and no reports of suicidal ideations or intent. Client Response/Progress/Benefit: [] Pt was an active participant in group discussion. Provided appropriate feedback to peers. Emotion for today is encouraged. Shared that she had a significant mental health win yesterday after group. Reports that she started to clean her apartment. States that she has felt no reason or purpose in life so she didn't bother to keep her apartment clean. Changed her perception yesterday due to group and after discussion with her episcopal support. Reports that he therapist gave her a goal and she was motivated to follow through with it. Insight into the benefits of beginning to clean apartment on her mood. Progress noted per pt report. Benefited from group support, encouragement, and feedback. Will continue in IOP to improve functioning, implement healthy coping skills, and decrease depression. Narrative Note: []
--- NOTE | 2020-02-07 11:15 | BH.SGPN.GN ---
Behaviors/Verbalizations/Mental Status: []Client alert and oriented, casual dress, hygiene tended to. Eye contact good. Motor activity appropriate. speech and tone WNL. Affect congruent, mood anxious and euthymic. Thoughts linear, logical, no signs of hallucinations or delusions. Client Response/Progress/Benefit: []Client receptive of session, engaged throughout AEB client participating in discussion, asking questions, and listening to others. Client completed a worksheet where client identified personal pitfalls impacting mental health progress. Attentive and contributing during group brainstorm of strategies to overcome pitfalls. Client stated she will work on the pitfalls of lack of motivation and lack of self-compassion. Client stated she will work on this by keeping track of her daily wins and setting SMART goals to clean her apartment. Benefited from identifying personal pitfalls and strategies to overcome these pitfalls. Progress noted today as client reports an improved mood today and following through with her tx goal of cleaning. Will continue IOP tx to promote the use of healthy coping skills, combat distortions, and improve daily functioning. Narrative Note: []
--- NOTE | 2020-02-09 09:05 | BH.SGPN.GN ---
Behaviors/Verbalizations/Mental Status: [] Eye contact is good. Motor activity is appropriate. Appearance is casual. Speech is Appropriate. Mood is anxious. Affect is congruent. Thoughts are linear and logical. No evidence of psychosis. Reviewed daily check in sheet and no reports of suicidal thoughts. Client Response/Progress/Benefit: [] Pt participated at times during the group discussion. Emotion for today is present. Check-in was brief. Shared that she is continuing to work on cleaning up her apartment however feels that it is going slow. Group challenged her for minimizing her efforts as she has not cleaned the apartment in over a year. Pointed out the progress. She discussed goals that she has for the weekend which includes visiting her family and helping them with Xmas decorations. I'm trying not to get to focused on the plan in case I don't follow through. Progress noted per pt report. Benefited from group support, encouragement, and feedback. Will continue in IOP to increase healthy coping skills, stabilize mood, and improve functioning. Narrative Note: []
--- NOTE | 2020-02-09 11:20 | BH.SGPN.GN ---
Behaviors/Verbalizations/Mental Status: []Client alert and oriented, neatly dressed and groomed. Eye contact good. Motor activity appropriate. Speech within normal limits. Affect constricted, mood anxious. Thoughts linear, logical, no signs of hallucinations or delusions. Client Response/Progress/Benefit: []Client engaged in session AEB listening attentively to others, providing input, and taking notes throughout. Client remained attentive during discussion about the 4 A's of managing stress and discussed connecting with the various benefits of each. Client reported she would like to work on the strategies of accepting the stressors in client?s ?stress jar? and adapting expectations. Client shared ?I want to be accepting of myself for who I am? and client wants to work on adapting more realistic expectations for herself with cleaning at home. Client seemed to benefit from increased awareness of the impact of stress on mental health and increasing repertoire of stress management strategies. Progress noted as client has been more engaged during group sessions and reported following through with goals this week. Will continue IOP tx as client struggles with consistent coping skill application and mood instability which impacts functioning. Narrative Note: []
--- NOTE | 2020-02-12 09:10 | BH.SGPN.GN ---
Behaviors/Verbalizations/Mental Status: [] Eye contact is good. Motor activity is appropriate. Appearance is casual. Speech is Appropriate. Mood is euthymic. Affect is full. Thoughts are linear and logical. No evidence of psychosis. Reviewed daily check in sheet and no reports of suicidal thoughts Client Response/Progress/Benefit: [] Pt was an active participant in group discussion. Reports improved mood since last week. Daily symptom tracker notes only 2/5 for anxiety. Over the weekend pt was very productive and helped family and friends with Xmas decorations. She was worried last week that she would not follow through or be able to motivate herself to leave the apartment however was able. States I'm forcing myself to do things and I'm actually liking it. Improved mood and energy. Progress noted per pt report. Benefited from group support and encouragement. Will continue in IOP to increase healthy coping, stabilize mood, and improve functioning. Narrative Note: []
--- NOTE | 2020-02-12 10:20 | BH.SGPN.GN ---
Behaviors/Verbalizations/Mental Status: []Client alert and oriented, casually dressed and groomed. Eye contact good. Motor activity appropriate. Speech within normal limits. Affect congruent, mood euthymic. Thoughts linear, logical, no signs of hallucinations or delusions. Client Response/Progress/Benefit: []Client engaged participant AEB client providing during group session and listening attentively to peers. Group discussed healthy versus unhealthy coping skills and what contributes to people using unhealthy skills. The group stated unhealthy coping skills tend to be easy and habitual, temporary relief, and learned behaviors. Client reported she has been feeling better so client feels like she has been managing stressors in healthier ways. Client participated in the group activity and connected that a healthy foundation of coping skills is composed of healthy internal and external coping skills. Client seemed to benefit from increased awareness of the importance of increasing healthy coping skills and consequences of utilizing unhealthy coping skills. Client will continue IOP tx to promote mood stability, further improve daily functioning, and reduce negative thinking. Narrative Note: []
--- NOTE | 2020-02-12 11:20 | BH.SGPN.GN ---
Behaviors/Verbalizations/Mental Status: []Client alert and oriented, casual dress, hygiene tended to. Eye contact fair. Motor activity appropriate. Speech within normal limits. Affect constricted, mood anxious. Thoughts linear, logical, no signs of hallucinations or delusions. Client Response/Progress/Benefit: []Client responded well to session, actively listening and providing examples. Group discussed the different categories of coping skills which included distraction, emotional release, grounding, self-love, and thought challenging. Client participated in creating a coping skills ?menu? from the five categories of coping skills. Client's coping skill menu included: take a shower every morning, journaling, identify daily gratitude, puzzles, and walking. Progress noted in client's increased self-awareness and self-report of using skills outside treatment environment. Appeared to benefit from increasing repertoire of healthy coping skills. Will continue tx to decrease avoidant behaviors, increase confidence, and prevent decompensation. Narrative Note: []
--- NOTE | 2020-02-12 14:09 | BH.MDN ---
Multi-Disciplinary Note - Note 60-min Individual Time Started:: 12:23 Date: 02/12/20 Purpose of session/treatment goals addressed:: The purpose of this session was to work on goal #1 objective #2 and goal #2 objective #2 of client's tx plan. Another goal was to process current stressors. Eye Contact:: Good Motor Activity:: Appropriate Appearance:: Neat Speech:: Rambling Mood:: Euthymic, Anxious Affect:: Congruent Thoughts:: Other, No evidence of hallucinations/delusions noted Staff Interventions:: Therapist used active listening and open-ended questions to explore client's stressors and help client process them. Therapist used strengths perspective and gentle thought challenging to promote self-compassion. Therapist helped client set SMART goals and challenge barriers. Therapist used cognitive restructuring techniques and helped client gain awareness of negative thoughts that reinforce avoidance behaviors and fear of judgement. Therapist gave client encouragement for progress. Client Response:: Client responded well to session, open to meeting with therapist. Client reports multiple mental health wins since last session. Client shared she cleaned in her kitchen and living room, delivered [employer] cards, and faced confrontation with a woman at [employer] rather than avoiding. Client shared even though she faced the confrontation, client continues to struggle with the outcome and unknowns. Client endorses lack of self-acceptance and continues to question her sexual orientation. Client questioning her sexual orientation is causing internal conflict because of client?s Zoroastrian beliefs and family values. Discussed the possibility of finding a [employer] that is more inclusive to LGBTQ persons. Client is not yet ready to explore these options. Client willing to practice coping skills to increase self-love and acceptance. Client recognizes her low self-esteem and negative self-talk reinforce client's depression, avoidance, and fear of judgement. Client will write down three personal strengths a day. Client will also spend 15 minutes a day cleaning and decorate for [place] to improve mood. Client continues to use negative thinking and self-depreciation, but is becoming more receptive to thought challenging. Risks/Concerns:: Client denies any active suicidal ideations, plan, or intent as of 02/12/20. Client reports feeling less depressed and is future oriented. Progress Toward Goals/Plan:: Client demonstrated improvement towards treatment goals this week AEB client's report of reduced depression, increased social interaction, and following through with goals to clean at home. Client reports ongoing stressors of self-acceptance and internal motivation, but is willing to continue working on these. Client currently endorses poor sleep, ruminations, low motivation, negative thoughts of self, difficulty focusing, having in complete thoughts, and anhedonia. Will continue IOP tx to promote the use of healthy coping skills and improve daily functioning. Time Stopped:: 13:21
--- NOTE | 2020-02-14 09:05 | BH.SGPN.GN ---
Behaviors/Verbalizations/Mental Status: []Client alert and oriented, casually dressed and groomed. Eye contact good. Motor activity appropriate. Speech rapid. Affect congruent, mood euthymic. Thoughts linear, logical, no signs of hallucinations or delusions. Reviewed client's symptom tracker, no thoughts or risk of suicide as of 02/14/20. Client Response/Progress/Benefit: []Client responded well to session, attentive and eager to share. Client reports feeling excited and relieved this morning and also stating I felt like I was going to explode if I didn't share. Client reports her mood has significantly improved as well as her motivation. Client reports less anxiety in social situations and plans to go to [employer] and a [employer] alliance party today. Client has also been following through with goals at home and has been cleaning apartments for work. Client stated feeling more confident even though she still feels anxious. Client reports it feels foreign to feel positive and client worries that this feeling is a fluke. Receptive to feedback and gentle thought challenging. Client appeared to benefit from reflecting on improved mood and application of coping skills. Will continue IOP tx to monitor mood and improve daily functioning. Narrative Note: []
--- NOTE | 2020-02-14 10:15 | BH.SGPN.GN ---
Behaviors/Verbalizations/Mental Status: [] Eye contact is good. Motor activity is appropriate. Appearance is casual. Speech is Appropriate. Mood is euthymic. Affect is full. Thoughts are linear and logical. No evidence of psychosis. Client Response/Progress/Benefit: [] Pt was an active participant in group discussions and activity. Shared her thoughts in the quote of the day. Worked with group members to identify the benefits of setting goals which include; sense of accomplishment, builds self-esteem, increases motivation, gives purpose, keeps us on track, and provides accountability. Worked with peers to identify the barriers to setting goals or things that keep us from accomplishing goals which include; low self-esteem, often set unrealistic goals/expectations, toxic people, lack of resources, and negative thoughts patterns. Attentive during psycho-education on developing SMART (Specific, Measurable, Achievable, Realistic, Timely) goals. Benefited from education on the benefits of goal-setting and increased insight into skills to set realistic and attainable goals. Narrative Note: []
--- NOTE | 2020-02-14 11:15 | BH.SGPN.GN ---
Behaviors/Verbalizations/Mental Status: []Eye contact is good. Motor activity is appropriate. Appearance is casual. Speech is Appropriate. Mood is anxious. Affect is congruent. Thoughts are linear and logical. No evidence of psychosis. Client Response/Progress/Benefit: []Pt was an active participant in group discussions and activities. Along with group members was able to identify barriers during group beach ball activity and strategies they utilized to overcome these barriers (communicating, encouraging others). Able to identify a SMART goal for the next week which was to recycle a bag of clothes that I've had sitting on a dresser for 2 years. Discussed how she has a difficult time getting rid of things because convinces self she might need it at some point. Pt receptive to feedback and support from peers. She was able to identify barriers and obstacles to this goals and strategies to overcome these barriers. Benefited from group by being able to utilize SMART educate to create a goal. Narrative Note: []
--- NOTE | 2020-02-14 12:27 | PCM.BH.PN_ITS ---
Progress Note Progress Note: History of Present Illness/Interim History: [] The patient is a 44-year-old female who is seen in follow-up at the [facility] behavioral health IOP program. I last saw the patient about 2 weeks ago and at that time she was started on Abilify 2 mg p.o. daily. She states that she is tolerating the Abilify well and has no side effects on it. Her mood is much better and she feels good and almost slightly above normal. She states I feel like a new person. She has had decreased sleep in the past few days down to 3 hours a night and has mild fatigue only during the day. She has been drinking more caffeine lately and until the mid afternoon with a total dose of about 3 cups a day. She has been getting more done at home. She feels much more hopeful now. She denies any suicidal or homicidal ideation. She denies auditory hallucinations or delusions. Current Psychiatric Medications: [] Prozac 80 mg p.o. daily (x1 month); Latuda discontinued January 06 due to side effects; vitamin D2 50,000 IUs weekly; Abilify 2 mg p.o. every morning (x2 weeks). Mental Status Examination: [] The patient is a 44-year-old female who is seen wearing a mask due to the pandemic and is casually dressed and groomed with good hygiene. She has no psychomotor agitation or retardation. Eye contact is good. Speech is normal rate and rhythm and fluent with no pressure. Mood is euthymic. Affect is full and normal. Thought process is goal-directed and organized. Thought content: No evidence of suicidal or homicidal ideation. No evidence of hallucinations or delusions. Impulsivity low to moderate. Judgment intact. Insight: Good. Diagnoses: [] [place] I: [] Major depressive disorder, recurrent, severe without psychosis; social anxiety disorder [place] II: [] Rule out avoidant personality disorder [place] III: [] Hypothyroidism [place] IV:[]] Primary support and work issues Plan: [] Patient will continue the IOP program at [facility] as the structure, support, education, individual and group therapy will hopefully prevent worsening of the patient's symptoms. The patient felt safe during the interview and if at any time she does not feel safe she will let us know or go to the emergency room. The risks, options, possible complications and side effects of medications were discussed with the patient and she understands and accepts these. She agrees to decrease her Prozac to 40 mg p.o. daily in the morning. In addition she agrees to increase her Abilify to 5 mg p.o. daily. I will see the patient in 1 to 2 weeks. The Prozac was decreased as the patient has had such a rapid improvement in her mood that I wanted to be cautious in case there is a bipolar disorder present. Patient has no history of adriana but she does have a history of a depression which puts her at higher risk.
--- NOTE | 2020-02-14 13:50 | BH.TPR ---
Treatment Plan Review Date of Admission:: 01/08/20 Date of Treatment Plan Review:: 02/14/20 Admitting Diagnoses:: Major depressive disorder, recurrent, severe without psychosis F33.2; social anxiety disorder; rule out avoidant personality disorder. Current Diagnoses:: Major depressive disorder, recurrent, severe without psychosis F33.2; social anxiety disorder; rule out avoidant personality disorder. Patient's Response to Treatment:: Client has been responding well to treatment and is demonstrating progress towards her treatment goals AEB reduction in DSM-5 scores and engagement in group and individual sessions. Client has been using healthy coping skills including reaching out to support, challenging expectations, deep breathing, and goal setting. Client struggled the first few weeks of [facility] to see progress due to self-reported lack of using coping skills. Since client?s medication change and increased application of coping skills, client?s mood has improved, and her symptoms have decreased. Client is an active group member and has become more vocal during discussions. Client is highly engaged in her individual sessions and has become more consistent with homework and skill utilization outside of group. Client is established with aftercare and would like to join the [facility] aftercare group when she discharges. Status of Current Problems and Symptoms: Client reports ongoing stressors of self-acceptance, ruminations, boundary setting, negative thinking, and internal motivation but is willing to continue working on these. Client also reports difficulty concentrating and some anhedoniaClient has had decreased sleep in the past few days down to 3 hours a night and has mild fatigue only during the day. Client?s Prozac was increased a few weeks ago and on 02/14/20 [facility] psychiatrist decreased to be cautious in case there is a bipolar disorder present. Problem #1 Problem Name:: Will decrease depressive sx, isolation, negative self-talk, and passive SI Status of Goals:: Objective 1- complete with ongoing work encouraged. Client?s DMS-5 scores for depression have decreased by 63% since admission. Client has been setting small goals, reaching out to supports, and challenging unrealistic expectations. Objective 2- in progress. Client is doing better to catch negative thoughts and self-reports being more optimistic. However, client still defaults to negative self-talk and disqualifying her positives. Team Recommendations:: Client encouraged to continue working on this treatment goal to reinforce healthy coping skills and to further decrease depressive symptoms. Client and therapist currently working on realistic expectations, thought challenging, self-accountability, and setting small goals. Client has been encouraged to explore [facility] as an option for additional social support. Problem #2 Problem Name:: Will reduce social anxiety and increase communication skills. Status of Goals:: Objective 1- complete with ongoing work encouraged. Client?s DSM-5 scores for anxiety have decreased by 80% since admission. Client reports feeling more confident and has been avoiding situations that make her anxiety much less frequently. Client can identify triggers and has been using opposite action and calming skills to manage anxiety. Objective 2- complete with ongoing work encouraged. Client has been consistently reporting going to [employer], getting out of her house daily, talking to supports, and volunteering at [employer]. Client still avoids setting boundaries as this makes client feel highly anxious. Team Recommendations:: Client encouraged to continue working on this treatment goal to reinforce healthy coping skills and to further decrease anxiety symptoms which will help client continue to build relationships and be social. Client and therapist currently working on boundary setting, thought challenging, and self-compassion.
--- NOTE | 2020-02-16 10:00 | BH.SGPN.GN ---
Behaviors/Verbalizations/Mental Status: []Client alert and oriented, casually dressed and groomed. Eye contact good. Motor activity appropriate. Speech within normal limits. Affect congruent, mood euthymic and anxious. Thoughts linear, logical, no signs of hallucinations or delusions. Client Response/Progress/Benefit: []Client engaged in session AEB client providing input throughout discussion, taking notes and listening attentively to peers. When processing quote client recognized she struggles with setting boundaries due to fear of conflict. Client assisted group with identifying consequences of not having healthy boundaries. This included: feeling overwhelmed, avoidance, and worsening mental health symptoms. Client shared she will avoid people because she is afraid to set boundaries with them. Client seemed to benefit from increased awareness of how poor boundaries can negatively impact mental health. Progress noted in client?s improved motivated. Will continue IOP tx to continue use of healthy coping, further improve daily functioning, and improve mood. Narrative Note: []
--- NOTE | 2020-02-16 10:56 | BH.SGPN.GN ---
Behaviors/Verbalizations/Mental Status: []Client alert and oriented, casual dress, hygiene appropriate. Eye contact good. Motor activity appropriate. Speech within normal limits. Affect congruent, mood anxious, euthymic. Thoughts linear, logical, no signs of hallucinations or delusions. Client Response/Progress/Benefit: []Client responded well to session, connecting with peers and receptive to supportive statements. Client engaged in the boundary self-assessment activity and attentive during psychoeducation on the different boundary styles. Client reported she is both porous and rigid with her boundaries. Client shared ?I?m a people pleaser, so I have a hard time saying no? when people ask for help. Client stated she is rigid with her emotional boundaries and fears that ?if people get to close to me they won?t like me.? Client participated in brainstorming strategies to improve boundary setting and reports wanting to work on creating a pros and cons list using a decisional balance worksheet. Progress noted in client?s report of reduced depression and increased motivation. Client to continue IOP tx to further improve mood stability, further decrease negative thoughts, and improve daily functioning. Narrative Note: []
--- NOTE | 2020-02-19 09:05 | BH.SGPN.GN ---
Behaviors/Verbalizations/Mental Status: [] Eye contact is good. Motor activity is appropriate. Appearance is casual. Speech is Appropriate. Mood is euthymic. Affect is full. Thoughts are linear and logical. No evidence of psychosis. Reviewed daily check in sheet and no reports of suicidal ideations or intent. Client Response/Progress/Benefit: [] Pt was an active participant in group discussion. Emotion for today is content. Reports that she continues to report feeling stable which is weird... amazing the difference since I started. She reports that she is better able to focus and concentrate on things and feels that she is grasping concepts better. Shared that she recently may have found a friend. She is nervous as she beleives that she has messed up friendships in the past and blames herself. Group pointed out some catastrophizing and predicting the future distortions. Provided feedback that no matter what happens she is still important. Progress noted per pt report. Benefited from group support and ecouragement. Will continue in IOP to maintain gains and prevent decompensation. Narrative Note: []
--- NOTE | 2020-02-19 10:10 | BH.SGPN.GN ---
Behaviors/Verbalizations/Mental Status: []]Eye contact is good. Motor activity is appropriate. Appearance is casual. Speech is Appropriate. Mood is anxious. Affect is congruent. Thoughts are linear and logical. No evidence of psychosis. Client Response/Progress/Benefit: []Pt an engaged participant throughout session AEB pt providing input at times to discussion, willing to complete worksheet and appearing to listen attentively to others. Pt appeared to connect with others comments about the negative impact anger outbursts can have on others and self. Shared her emotions underlying anger include: hopelessness, fear, guilt, and irritability. Pt identified the following ways she expresses anger: irrational thoughts, guilt, and break things. Pt seemed to benefit from increased awareness of how unmanaged anger can impact self and others. Progress noted with pt's increased participation during session and appearing to gain increased self-awareness. Pt to continue IOP to maintain progress, increase consistent use of healthy coping and prevent decompensation. Narrative Note: []
--- NOTE | 2020-02-19 11:12 | BH.SGPN.GN ---
Behaviors/Verbalizations/Mental Status: []Client alert and oriented, casually dressed and groomed. Eye contact good. Motor activity appropriate. Speech within normal limits. Affect congruent. mood euthymic. Thoughts linear, logical, no signs of hallucinations or delusions. Client Response/Progress/Benefit: []Pt was engaged throughout AEB contributing to group discussion and self-reflection. Pt contributed as the group provided examples of physical warning signs for anger and identified personal warning signs. These included: shaking loss of appetite, headache, clenching, and getting a hot face. Pt contributed as group brainstormed healthy coping skills for better managing anger which included: music, walking/exercise, opposite action, identifying distortions, DDD, and meditation. Pt appeared to benefit from identifying different techniques to manage anger as well as gaining awareness of potential consequences of unmanaged anger. Pt selected walking and DDD as coping skills pt would like to try to regulate anger. Progress noted as client continues to report improved mood stability and improved functioning. Will continue IOP tx to promote gains and further decrease negative thinking that reinforces sx. Narrative Note: []
--- NOTE | 2020-02-20 10:10 | BH.SGPN.GN ---
Behaviors/Verbalizations/Mental Status: []Client alert and oriented, neatly dressed and groomed. Eye contact good. Motor activity appropriate. Speech within normal limits. Affect congruent, mood euthymic. Thoughts linear, logical, no signs of hallucinations or delusions. Client Response/Progress/Benefit: []Client receptive of session, attentive in discussion and activity. Client discussed the quote and connected with personal and interpersonal consequences of not managing emotions. Client helped group identify barriers that impact one?s ability to communicate when emotions are high. These barriers included; negative thoughts, anxiety, and shutting down. Client shared she often expects people to read her mind, and when they do not client becomes upset. Group discussed why it is important to be able to communicate effectively when emotions are high. Client participated in the activity and did well to manage emotions throughout. Client did well to provide encouragement. Client appeared to benefit from increasing awareness of how emotions can impact communication and practicing in the moment coping skills. Client demonstrating progress in increase confidence and socialization. Will continue IOP tx to promote gains, improve daily functioning, and reduce negative thinking. Narrative Note: []
--- NOTE | 2020-02-22 09:10 | BH.SGPN.GN ---
Behaviors/Verbalizations/Mental Status: [] Eye contact is good. Motor activity is appropriate. Appearance is casual. Speech is Appropriate. Mood is euthymic. Affect is full. Thoughts are linear and logical. No evidence of psychosis. Reviewed daily check in sheet and no reports of suicidal ideations or intent. Client Response/Progress/Benefit: [] Pt was an active participant in group discussion. Shared with the group increased energy and feeling less tired. Reports that she felt more tired and slept excessively after increase of her Prozac. She decreased her Prozac back to orginal dose on her own and reports increased energy and motivation. Slept 4 hours last night. Reports that previous to that I was sleeping all day Positive mood and looking forward to holidays. I used to dread going to family events . Last year was depressed and spent most of the dinner in her parent's room. I felt like nobody cared about me. Also plans to attend nondenominational this evening which is progress as she avoided it last year. Utiliing skills, reframing thoughts, and optimistic. Progress noted per pt report. Will continue in IOP to prevent decompensation, maintain gains, and improve functioning. Benefited from group support, encouragement, and feedback. Narrative Note: []
--- NOTE | 2020-02-22 10:20 | BH.SGPN.GN ---
Behaviors/Verbalizations/Mental Status: []Client alert and oriented, neatly dressed and groomed. Eye contact good. Motor activity appropriate. Speech within normal limits. Affect congruent, mood euthymic. Thoughts linear, logical, no signs of hallucinations or delusions. Client Response/Progress/Benefit: []Client active participant as shown by active listening and contributing to discussion. Client contributed to the discussion of self-care and the consequences of not practicing self-care. Client agreed with peers that it is important to practice self-care, but client struggles with applying this as client often feels guilty when taking time for herself. Client helped the group discuss benefits of self-care which included; improved mood, better mental health, and better relationships. Client participated in the discussion of the common myths about self-care. Client participated in the discussion on debunking of these myths. Client?s group challenged the myths: self-care should be fun, self-care is selfish, and self-care just personal hygiene. Client reminded peers that ?there?s negative consequences if you don?t have self-care.? Client seemed to benefit from increased awareness of the importance of self-care and challenging common myths that prevent practicing self-care. Will continue IOP tx to promote gains, decrease negative thinking, and further improve daily functioning. Narrative Note: []
--- NOTE | 2020-02-22 11:20 | BH.SGPN.GN ---
Behaviors/Verbalizations/Mental Status: []Client alert and oriented, casually dressed, hygiene appeared to be tended to. Eye contact fair. Motor activity appropriate. Speech within normal limits. Affect congruent, mood euthymic, slightly anxious. Thoughts linear, logical, no signs of hallucinations or delusions. Client Response/Progress/Benefit: []Client active participant AEB client providing input during discussions and listened attentively to peers. Participated in some group discussion on the various areas of self-care, benefits, and types of self-care activities for each area. Client completed worksheet in which she identified current self-care practices and what self-care activities she wants to start using. Client reported she will focus on improving her psychological self-care because recognizes she neglects this area of self-care. Client reported she will work on psychological self-care by engaging in yoga to improve ability to be in the moment. Progress noted as client reports improved mood. Will continue IOP tx to further promote the use of healthy coping skills, increase self-confidence and prevent decompensation. Narrative Note: []
--- NOTE | 2020-02-22 14:10 | BH.MDN ---
Multi-Disciplinary Note - Note 45-min Individual Time Started:: 12:25 Date: 02/22/20 Purpose of session/treatment goals addressed:: The purpose of this session was to review application of coping skills, discuss aftercare options and plan, and practice cognitive restructuring. Eye Contact:: Good Motor Activity:: Appropriate Appearance:: Neat Speech:: Tangential Mood:: Euthymic, Anxious Affect:: Congruent Thoughts:: Other - reports feeling foggy at times, No evidence of hallucinations/delusions noted Staff Interventions:: Therapist used active listening and open-ended questions to gather information on client's current symptoms, progress, and application of coping skills. Therapist processed a recent stressor with client and encouraged client to practice cognitive restructuring and self-compassion to reframe negative thinking. Therapist discussed options for aftercare including IOP aftercare, [facility], and outpatient counseling. Therapist gave client a maintenance plan to begin for homework. Client Response:: Client responded well to session, open to meeting with therapist. Client reports overall her mood has improved, and client continues to follow through with goals at home. Client reports she almost beat herself up for taking a rest day, but client was able to reframe this situation. Client shared somewhere along the way I got confident, but I don't know when. Client reports consistent use of opposite action, socializing, and challenging expectations. Client recognizes it is almost time to discharge from [facility] and client is apprehensive due to fear of losing the structure and support. Receptive to developing a maintenance plan and identifying additional supports. Client's external supports included: outpatient therapist, jew, Episcopalian counselor, IOP aftercare, and potentially [facility]. Client willing to work on a maintenance plan which will include triggers, warning signs, and internal coping skills. Client wanted to discuss a recent stressor. Client was receptive to feedback about boundaries and self-love. Risks/Concerns:: Client denies any suicidal ideations or passive wishes of . Client is positive and future oriented. Progress Toward Goals/Plan:: Client continues to demonstrate progress towards tx goals AEB self-report of increased confidence, improved motivation at home, and overall improved ability to challenge unrealistic expectations. Client also continues to improve with socializing and reaching out to supports. Client?s medication was recently changed, and client continues to be monitored for hypomanic symptoms. Client has not history of hypomania. Client endorses variable sleep, negative thoughts of self, lack of self-acceptance, issues with boundary setting, and difficulty verbalizing her thoughts. Will continue IOP tx to promote the use of healthy coping skills, monitor progress and mood, and improve daily functioning. Time Stopped:: 13:05
--- NOTE | 2020-02-26 09:10 | BH.SGPN.GN ---
Behaviors/Verbalizations/Mental Status: [] Eye contact is good. Motor activity is appropriate. Appearance is casual. Speech is Appropriate. Mood is euthymic. Affect is full. Thoughts are linear and logical. No evidence of psychosis. Reviewed daily check in sheet and no reports of suicidal ideations or intent. Client Response/Progress/Benefit: [] Pt was an active participant in group discussions. Attentive. Appropriate feedback. Shared mental health wins stating that she attended her family holiday green party and was more engaged than she had been in the past. States I didn't dread it which is much improved from last year. 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 Also had a conversation with a woman whom she had conflict with in the past. She talked about her future and the possibility of returning to work however she was visibly anxious about this. States I can do the work its just being around people is very overwhelming. Emotion for today is cautiously optimistic. On closing she reported that a friend has been staying at her house since 02/24/20 despite pt not wanting him there. She is struggling to set boundaries and ask him to leave. Group provided support, feedback, and encouragement which was beneficial. Will continue in IOP to maintain gains. Narrative Note: []
--- NOTE | 2020-02-26 10:18 | BH.SGPN.GN ---
Behaviors/Verbalizations/Mental Status: []Client alert and oriented, neatly dressed and groomed. Eye contact good. Motor activity appropriate. Speech within normal limits. Affect congruent, mood euthymic. Thoughts linear, logical, no signs of hallucinations or delusions. Client Response/Progress/Benefit: []Client engaged throughout session AEB active participation. Connected with discussion on crisis and how coping with external crises by using unhealthy coping skills could result in a personal crisis. Group reflected on the importance of having awareness of personal warning signs in order to prevent reaching crisis point. Group identified potential warning signs for crisis and client completed the personal warning signs worksheet. Client identified personal crisis warning signs to include: inability to concentrate, isolation and avoidance, and loss of motivation. Client benefited by increasing awareness of what leads to crisis and personal warning signs. Progress noted in client?s more consistent report of mood stability. Will continue IOP tx to promote gains, reinforce healthy coping skills, and further improve functioning. Narrative Note: []
--- NOTE | 2020-02-26 11:20 | BH.SGPN.GN ---
Behaviors/Verbalizations/Mental Status: []Client alert and oriented, casually dressed and groomed. Eye contact fair. Motor activity appropriate. Speech within normal limits. Affect constricted. Mood anxious. Thoughts linear, logical, no signs of hallucinations or delusions. Client Response/Progress/Benefit: []Client responded well to session as evidenced by client listening attentively to others and providing strategies during discussion. Client identified her warning signs for crisis and gained further awareness of earliest warning signs. Client created a crisis action plan to help client better manage warning signs for crisis. Client?s action plan for isolation included: opposite action, making plans with others, making contact with a couple people, change environment, go on a walk, and grounding. Client appeared to benefit from creating a crisis action plan and increasing self-awareness. Progress noted AEB client demonstrating increased socialization and overall mood improvement. Client to continue IOP tx to maintain gains, build confidence and prevent decompensation. Narrative Note: []
--- NOTE | 2020-02-28 09:05 | BH.SGPN.GN ---
Behaviors/Verbalizations/Mental Status: []Client alert and oriented, neatly dressed and groomed. Eye contact good. Motor activity appropriate. Speech within normal limits. Affect congruent, mood euthymic. Thoughts linear, logical, no signs of hallucinations or delusions. Reviewed client?s symptom tracker, no risk for suicidal ideation, plan, or intent as of 02/28/20 Client Response/Progress/Benefit: []Client responded well to session, attentive and providing supportive feedback. Client reports feeling relieved this morning as client accomplished a task she had been putting off and was productive yesterday. Client stated she continues to reach out to supports and be active with her voodoo. Client reports use of opposite action, thought challenging, and spending time with supports as coping skills. Client shared she is functioning better than she was, but client still struggles to motivate herself at times. Appeared to benefit from reflecting on positives and connecting with peers. Will continue IOP tx this week to promote gains, establish aftercare plan, and further improve functioning. Narrative Note: []
--- NOTE | 2020-02-28 10:15 | BH.SGPN.GN ---
Behaviors/Verbalizations/Mental Status: [] Eye contact is good. Motor activity is appropriate. Appearance is casual. Speech is Appropriate. Mood is euthymic. Affect is full. Thoughts are linear and logical. No evidence of psychosis. Client Response/Progress/Benefit: [] Pt was an active participant in group discussion and activity. Attentive during psychoeducation and discussion on famous people who have overcome set-backs and failures. Participated with peers in coming up with descriptions of failure which included; messing up, not accomplishing a goal, making the wrong choice, and giving up. Group discussed the impact of fear of failure stating that it can lead to; inaction, increased anxiety, self-fulfilling prophecy, and it can keep them from reaching goals or even trying. Pt benefited from group as evidenced by increased insight and awareness of the impact of fear of failure on mood and actions. Will continue in IOP to maintain gains. Narrative Note: []
--- NOTE | 2020-02-28 11:10 | BH.COMM ---
Communication Note - Communication with Client Communication Note: Client discussed with this RN that she did wean her Prozac to 40mg for about a week, but felt very tired and was sleeping all the time. Client states she started taking 80mg of Prozac again and is feeling better. Client states she sleeps 3-4 hours per night and usually naps during the day. Client states she prefers staying up late at night. Client states she is taking her 5mg of Abilify as prescribed. Client positive, smiling, stating I feel really good right now!.
--- NOTE | 2020-02-28 14:07 | BH.MDN ---
Multi-Disciplinary Note - Note 45-min Individual Time Started:: 12:00 Date: 02/28/20 Purpose of session/treatment goals addressed:: The purpose of this session was to identify strategies to promote long-term mood stability such as boundary setting. Eye Contact:: Good Motor Activity:: Appropriate Appearance:: Neat Speech:: Appropriate Mood:: Euthymic, Anxious Affect:: Full Thoughts:: Linear, Logical, Other, No evidence of hallucinations/delusions noted Staff Interventions:: Therapist used active listening and open-ended questions to explore client's current symptoms, stressors, and application of coping skills. Therapist assisted client in exploring barriers to setting boundaries as well as benefits to boundary setting. Therapist used cognitive restructuring to help client combat distorted thinking. Therapist gave client homework to read and journal about an article on people pleasers and boundary setting. Client Response:: Client responded well to session, open to meeting with therapist. Client continues to report that overall she is feeling and functioning better. However, client is currently feeling torn about a long-time friend who has been pushing client's boundaries. Client shared, my friend came over to shower because his pipes were frozen, and he just hasn't left. Client stated it has been about three days now. Client shared being around him makes client feel irritable and angry, so client leaves her apartment to avoid her friend. Client recognizes she needs to set boundaries, but client is fearful of hurting her friend's feelings. Discussed additional barriers keeping client from setting boundaries such as feeling obligated and guilt. Discussed the consequences of not setting boundaries for client personally, and for their friendship. Client acknowledges that if she does set boundaries, she will feel less frustrated, have more time for self-care, and have her own space again. Receptive to reading an article on people pleasers and setting boundaries as well as watching a video. Risks/Concerns:: Client denies any suicidal ideations, plan, or intent as of 02/28/20. Progress Toward Goals/Plan:: Client continues to show progress towards tx goals. Client remains social with lutheran, friends, and family. Client has also been consistent with cleaning her apartment. Client is currently struggling with boundary setting with a long-time friend. This is impacting client's mood and increasing avoidance behaviors. Client receptive to exploring her boundaries and challenging negative thoughts that keep client from setting boundaries. Will continue IOP tx as client can benefit from establishing aftercare and reinforcing healthy coping skills. Time Stopped:: 12:40
--- NOTE | 2020-02-29 09:10 | BH.SGPN.GN ---
Behaviors/Verbalizations/Mental Status: [] Eye contact is good. Motor activity is appropriate. Appearance is casual. Speech is Appropriate. Mood is euthymic. Affect is full. Thoughts are linear and logical. No evidence of psychosis. Reviewed daily check in sheet and no reports of suicidal thoughts. Client Response/Progress/Benefit: [] Pt was an active participant in group discussion. Daily symptom tracker is 0/5 for all emotions. Emotion for today is positive. Pt reports that she has not been feeling any distress or overwhelming emotions. Things are not bothering me. States while this is positive it at times causes her to not accomplish tasks. I'm putting things off. In the past while she would not complete tasks she would be anxious and ruminate on not completing tasks. Sleep has been steady. I'm fine. Progress noted per pt report. Benefited from group support, encouragement, and feedback. Will continue in IOP to maintain gains. Narrative Note: []
--- NOTE | 2020-02-29 10:16 | BH.SGPN.GN ---
Behaviors/Verbalizations/Mental Status: []Client alert and oriented, well groomed and dressed. Eye contact good. Motor activity appropriate. Speech within normal limits. Affect congruent, mood euthymic. Thoughts linear, logical, no signs of hallucinations or delusions. Client Response/Progress/Benefit: []Client an active participant during group AEB client contributing input to discussion, able to make connections throughout. Client agreed with group that it is important to have a variety of social supports. Group identified benefits of social support as gaining different perspectives, validation, accountability, and encouragement. Client also helped group identify barriers to using support. Client shared one of her barriers to using support is mind-reading as client sometimes excepts others to know what client is thinking and feeling. Appeared to benefit from gaining awareness of barriers that keep people from seeking social support as well as identifying the benefits of increasing support. Progress noted as client continues to report overall mood stability and reduced isolation. Will continue IOP tx to promote gains and to reinforce healthy coping skills. Client will discharge next week. Narrative Note: []
--- NOTE | 2020-02-29 11:18 | BH.SGPN.GN ---
Behaviors/Verbalizations/Mental Status: []Client alert and oriented, neatly dressed and groomed. Eye contact good. Motor activity appropriate. Speech within normal limits. Affect congruent, mood euthymic. Thoughts linear, logical, no signs of hallucinations or delusions. Client Response/Progress/Benefit: []Client an active participant throughout AEB contributing to discussion, taking notes, and providing supportive feedback. Client participated in the group activity highlighting the various barriers to effectively utilizing supports and strategies the group used. Client participated in discussion of the four types of support (emotion, tangible, informational, and social) and gave examples for all types. Client reports wanting to work on increasing informational support. Client plans to do this by reaching out to her outpatient psychiatrist today and advocating for concerns client has about her ?scattered? thoughts. Client seemed to benefit from identifying the type of support she wants to improve. Client is showing progress AEB improved mood and use of coping skills. Client to continue in IOP tx and discharge next week. Client can benefit from one more IOP day to reinforce healthy coping skills and review aftercare plan. Narrative Note: []
== END 2020-02-29 23:59 ==
LOC: BHIOP 09:00
PROVIDERS: PCP Family Medicine; Referring Provider Psychiatry & Neurology Psychiatry; Visit Provider Psychiatry & Neurology Psychiatry
DX: F33.2 Major depressive disorder, recurrent severe without psychotic features (principal); F41.8 Other specified anxiety disorders; E03.9 Hypothyroidism, unspecified; Z79.899 Other long term (current) drug therapy
CPT/HCPCS: 99213; 99214; H0035; H2012; H2020; 90834; 90837

== ENCOUNTER 2020-03-04 09:00 | Outpatient (RCR) | payer MEDICAID, SELFPAY ==
[2020-03-01 00:34] VITALS: BP 135/87; PULSE 62
--- NOTE | 2020-03-04 09:00 | BH.SGPN.GN ---
Behaviors/Verbalizations/Mental Status: [] Eye contact is good. Motor activity is appropriate. Appearance is casual. Speech is Appropriate. Mood is anxious. Affect is congruent. Thoughts are linear and logical. No evidence of psychosis. No suicidal thoughts reported Client Response/Progress/Benefit: [] Pt was an active participant in group discussion. Pt states that she feels brain today. States feeling decent. Reports slept 4 hours last night. She reports that she complete some tasks around the house and has begun to work on cleaning up her basement. Plan to start exercising in the basement or taking more walks outside. Goal for the new year is to read a book a month. Progress noted. Should be noted that today is pt's last day in IOP with plan to discharge this afternoon. Narrative Note: []
--- NOTE | 2020-03-04 09:32 | BH.IGGP_ITS ---
Aftercare Plan - Demographics Treatment End Date:: 03/04/20 Psychiatrist:: Smiley Curry Psychiatrist Office #:: [phone] [facility] Therapist:: Holli Pyle Therapist Phone #:: [phone] - Medications Home Medications: Home Medications Fluoxetine HCl [Prozac] 40 mg PO DAILY 01/10/20 Levothyroxine [Synthroid] 75 mcg PO DAILY 01/10/20 Ergocalciferol (Vitamin D2) [Vitamin D2] 50,000 unit PO QWEEK 30 Days #4 cap 01/31/20 Aripiprazole [Abilify] 5 mg PO DAILY 30 Days #30 tab 02/14/20 - Plan Details Progress/Aftercare Plan Details:: Jessy has made significant strides since starting IOP as shown by reduced symptoms and improved functioning. When Jessy started IOP she was experiencing significant depression, social anxiety , and negative thinking. Jessy?s symptoms were significantly impacting her functioning at home and socially. Jessy was struggling with cleaning her apartment, sleeping too much, and isolation. Now, Jessy is volunteering at [employer], cleaning her house more, and has made new connections. Jessy?s outlook on life has shifted and it is much easier for her to point out the positives. Jessy is more active socially and spends less time sleeping. Jessy has worked very hard to combat unrealistic expectations for herself and practice self-compassion. Jessy self-reports progress in being more positive, social, and confident. This has helped Jessy communicate more and make new friendships. Jessy was highly active in both group and individual therapy sessions. Jessy was shy and passive when she started IOP, but she progressed to being more vocal and contributed to group discussions, offered emotional support to peers. In individual sessions, Jessy was receptive to feedback, even when the feedback was about challenging topics like reframing negative thinking and boundaries. Jessy?s motivation, willingness to challenge herself, and joyful personality were likely the reason for her significant progress. Jessy plans to follow up with aftercare at [facility] and is established with services through [facility]. Strategies for Success:: 1. Challenge thoughts! Continue to catch those negative thoughts and reframe them. Ask yourself ?what would they say in IOP? if you have a hard time reframing. 2. The 15 minute rule! You don?t have to clean or be productive all day to accomplish something, just start for 15 minutes. 3. Self-compassion! Set realistic goals and expectations for yourself-you deserve kindness! 4. Self-care!! Remember to journal, spend time with supports, do things you enjoy, and SET BOUNDARIES! 5. Opposite action! Motivation does not always come naturally or easily. Practice opposite action when depression or anxiety tell you to avoid or isolate. 6. Keep communicating! Be vulnerable and remember you are JUST as worthy as someone else! 7. Deep breathing and calming skills are always helpful to practice. 8. Establish a daily routine and make it visible! Write this out on your new calendar. 9. Advocate for yourself. 10. Remember to give yourself credit! You have truly accomplished so much! - Appointments Appointments/Referrals to Other Services:: 1. [facility]. 2. Follow up with your [facility] counselor on Tuesdays. 3. Follow up with Dr. Peter for medication management- recently saw Dr. Peter last week. 4. Follow up with IOP aftercare program starting 03/07/20 at 2:00pm. 5. Follow up with DIANE chen for additional accountability and support.
--- NOTE | 2020-03-04 10:15 | BH.SGPN.GN ---
Behaviors/Verbalizations/Mental Status: []Client alert and oriented, casually dressed and appropriately groomed. Eye contact good. Motor activity appropriate. Speech within normal limits. Affect congruent, mood euthymic, slightly anxious. Thoughts linear, logical, no signs of hallucinations or delusions. Client Response/Progress/Benefit: []Client was an engaged participant AEB taking notes, providing some input, and attentively listening throughout. Connected with group topic of perspective and the impacts of one?s perspective on mental health. Client shared that if we look for the positive then it will likely improve our mood. Client worked with the group to identify how a negative perspective can impact mental health which included: self-fulfilling prophecy, maintain unhealthy coping, prevent progress and lead to more negative thinking.?Client contributed as group discussed ways a positive perspective can impact mental health. Client appeared to benefit from increasing understanding of mental health benefits of a positive perspective and potential consequences to progress when perspective is negative. Client has made significant progress such as increased confidence and decreased anxiety since starting IOP and no longer meets criteria for IOP level of care. client is to discharge from [facility] today.
--- NOTE | 2020-03-04 11:15 | BH.SGPN.GN ---
Behaviors/Verbalizations/Mental Status: []Client alert and oriented, casually dressed and groomed. Eye contact good. Motor activity appropriate. Speech within normal limits. Affect constricted. Mood anxious. Thoughts linear, logical, no signs of hallucinations or delusions. Client Response/Progress/Benefit: []Client responded well to session, actively participating. Connected with the benefits of recognizing personal strengths on improving mental health which included: increased self-confidence, improved self-esteem, and better follow through. Client able to identify personal strengths she possesses which included: empathy, common sense, and honesty. Group discussed how personal strengths can help client make progress for mental health and identified strategies to help them acknowledge strengths more often. Client noted that she would like to work on turning her strength of having empathy for others inward. Appeared to benefit from recognizing personal strengths and identifying strategies to increase recognition of strengths. Will discharge from IOP today as client has made significant progress and no longer meet criteria for IOP level of care. Narrative Note: []
--- NOTE | 2020-03-04 13:51 | BH.DS_ITS ---
Discharge Summary - Demographics Date of Admission:: 01/08/20 Discharge Date: 03/04/20 Presenting Problems at Admission:: Client is a 44-year-old woman with a history of MDD and TRACY. Client has no previous psychiatric hospitalizations and has never participated in [facility] level of care. Client was referred by her outpatient therapist, Scott Weir, due to worsening anxiety, isolation, fleeting SI, and mental health impacting client's functioning. Client was on FMLA from work from 03/2019-08/2019 with little to no improvement. Prior to admission, client felt like she could not return to work as client has been so anxious client has not been leaving her house. At admission, client endorsed significant anxiety, fear, and panic when around people. Client also presented with increased sleep, increased appetite, low energy, anhedonia, and hopelessness. Client stated she w ished she did not exist most days and was not motivated. At admission, client was not completing her ADLs and reported her apartment ?was a disaster.? Client reported limited ability to concentrate and difficulty formulating thoughts. Client's symptoms were significantly impacting her occupational, social, and daily functioning. Discharge Diagnoses:: Major depressive disorder, recurrent, moderate without psychosis F33.1; social anxiety disorder; rule out avoidant personality disorder. Reason for Discharge:: Client has made significant progress towards her treatment goals AEB her reduction in DSM-5 symptom scores, self-report of increased confidence, and improved functioning. Client no longer meets criteria for [facility] level of care and will transition to outpatient counseling and [facility] aftercare. - Treatment Progress During Treatment & Response: Client responded well to treatment as shown by her overall consistent attendance, active participation, and significant reduction of overall DSM-5 symptoms. Client was an active participate who frequently contributed to discussions, was receptive to feedback, and took notes. Client often connected with peers and asked for ideas when she was struggling. In individual sessions, client was receptive to learning new coping skills and was engaged in her treatment. Client struggled at first with follow-through, but then became more consistent with applying coping skills. By discharge, client was able to clean most of her apartment and she had been consistently spending time with supports. Client self-identified her progress as increased confidence, being optimistic, being more social, and accomplishing more goals. At discharge, client?s DSM-5 symptom scores decreased by 41%. Client?s DSM-5 scores for depression decreased by 50% and anxiety decreased by 80%. Additionally, at discharge client no longer reported thoughts of wishing she did not exist, and client felt more hopeful for the future. Issues Still to be Addressed:: Client can benefit from ongoing mental health counseling to reinforce healthy coping skills, promote accountability, and combat distortions that reinforce low self-esteem. Client would like to further improve her coping skills, management of depression and anxiety symptoms, and boundary setting. Client can also benefit from ongoing work on increasing self- compassion, establishing routine, and finding employment. Discharge Recommendations/Instructions:: Client is encouraged to follow up with her outpatient providers at [facility] for counseling and medication management. Client sees Scott Weir on 03/21/20 and client will continue to follow up with Dr. Peter for psychiatric services. Client last saw Dr. Peter last week. Client also sees a [employer] counselor through her [employer] once a week. Client is recommended to participate in IOP aftercare group and client will start this on 03/07/20. Lastly, client was interested in attending groups at [facility] for additional accountability and support. Discharge Handout: Complete Discharge Handout with client on aftercare options and continuity of care.
--- NOTE | 2020-03-04 13:52 | BH.MDN_ITS ---
Multi-Disciplinary Note - Note 30-min Individual Time Started:: 12:25 Date: 03/04/20 Purpose of session/treatment goals addressed:: The purpose of this session was to review client's progress and review strategies that will promote mood stability and gains made in IOP. Another goal was to discuss discharge recommendations and process any current stressors. Eye Contact:: Good Motor Activity:: Appropriate Appearance:: Neat Speech:: Appropriate Mood:: Anxious Affect:: Constricted Thoughts:: Other - reports her thinking is slow, No evidence of hallucinations/delusions noted Staff Interventions:: Therapist used open-ended questions to explore client's thoughts on personal progress. Therapist also provided emotional support and helped client problem-solve current stressors. Therapist reviewed supports and coping skills with client to promote gains and prevent setbacks. Therapist discussed aftercare plan with client and used strengths-perspective to empower client on the goals client has accomplished. Therapist discussed the benefits of ongoing maintenance and use of daily coping skills. Therapist gave client a quote collage for closure. Client Response:: Client responded well to session, open to meeting with lorin santos. Client reports feeling anxious about leaving IOP as client enjoyed the structure and encouragement. Client stated she still struggles with motivating herself and with challenging her perspective, but client recognizes she has improved significantly since admission. Client also acknowledges that she has external supports as well who can help client including IOP aftercare, outpatient counseling, [facility], and [facility]. Client reflected on her progress during IOP and reported ?I think more positive and people like being around me more.? Client reports feeling more confident and shared her attitude and outlook have improved. Client continues to clean her apartment and client has been more outgoing. Client self-identified healthy coping skills that have helped client which included: challenging negative thoughts, reaching out to supports, opposite action, calming skills, and positive self-talk. Client expressed gratitude for the IOP program and reflected on how much she has progressed since admission. Risks/Concerns:: Client denies any suicidal ideations, plan, or intent as of 03/04/20. Progress Toward Goals/Plan:: Client will discharge from IOP tx today and transition to outpatient level of care. Client has made significant progress since admission AEB her reduced DSM-5 scores, self-report of improve mood and confidence, and improved functioning. Client still reports symptoms of depression, issues with thinking, and variable sleep that client will continue to work on during outpatient counseling and IOP aftercare. Time Stopped:: 12:50
== END 2020-03-04 14:00 | disposition home or self-care (01) ==
LOC: BHIOP 09:00
PROVIDERS: PCP Family Medicine; Referring Provider Psychiatry & Neurology Psychiatry; Visit Provider Psychiatry & Neurology Psychiatry
DX: F33.1 Major depressive disorder, recurrent, moderate (principal); F41.8 Other specified anxiety disorders
CPT/HCPCS: H0035; H2020; 90832

== ENCOUNTER 2020-03-07 14:00 | Outpatient (RCR) | payer BC, MEDICAID, SELFPAY ==
--- NOTE | 2020-03-07 14:00 | BH.SGPN.GN ---
Behaviors/Verbalizations/Mental Status: []Client alert and oriented, neatly dressed and groomed. Eye contact fair. Motor activity appropriate. Speech within normal limits. Affect congruent, mood anxious. Thoughts linear, logical, no signs of hallucinations or delusions. Client Response/Progress/Benefit: []Client responded well to session, actively contributing. Recently discharged from [facility] and it is her first day of aftercare. Client shared her goal is to be more assertive and asked the group for feedback on ow to be assertive and kind. Client has been reaching out to supports and practicing thought challenging to cope with symptoms and stressors this week. Client contributed to the discussion on gratitude and its benefits. Client attentive during discussion of internal vs. external gratitude. Client receptive to participating in the group seven-day gratitude challenge. Client selected one gratitude reflection per day and stated she will implement this through writing each morning. Receptive to discussion on intentionality and self-accountability. Appeared to benefit from connecting with peers and practicing gratitude. Will continue [facility] aftercare to promote mood stability and use of healthy coping skills. Narrative Note: []
--- NOTE | 2020-03-07 14:12 | BH.MTP_ITS ---
Master Treatment Plan - Patient Information Program Physician:: Dr. Smiley Curry Primary Therapist:: Holli Pyle - Psychiatric Diagnoses Psychiatric Diagnoses:: Major depressive disorder, recurrent, moderate without psychosis F33.1; social anxiety disorder; rule out avoidant personality disorder. Diagnosis Code(s):: F33.1 - Estimated LOS Estimated LOS (in weeks):: 12 Problem/Goal #1 - Problem/Goal #1 Stated Goal:: client will maintain or see a reduction in symptoms AEB client score on the DSM 5 cross-cutting measure and improve client's daily functioning. - Objectives Objective #1 Stated Objective: Client will continue to consistently apply healthy coping sk ills to maintain progress made in IOP tx. Interventions: Through group therapy, client will review warning signs and triggers as well as healthy coping skills learned in IOP tx to successfully maintain gains while transitioning into outpatient therapy. Discharge Criteria: Client will have accomplished this goal when client's score on the DSM-5 cross-cutting measure has either maintained or reduced over a 12 week period. Target Date: 05/30/20 Review Date: 04/04/20 Objective #2 Stated Objective: Client will learn and utilize 2-3 maintenance strategies to prevent decompensation. Interventions: Through group therapy, client will be provided with education on healthy maintenance behaviors, relapse prevention techniques, and healthy coping strategies. Discharge Criteria: Client will have accomplised this goal when can report using at least 2 maintenance skills to prevent decompensation. Target Date: 05/30/20 Review Date: 04/04/20
--- NOTE | 2020-03-21 14:00 | BH.SGPN.GN ---
Behaviors/Verbalizations/Mental Status: []Client alert and oriented, neatly dressed and groomed. Eye contact good. Motor activity appropriate. Speech within normal limits. Affect congruent, mood anxious. Thoughts linear, logical, no signs of hallucinations or delusions. Client Response/Progress/Benefit: []Client responded well to session, provided input, and listened attentively to peers. Reported feeling ?not as good? today as client shared, she has not been as productive as she would like. Client reports her goal this week is to increase self-motivation. Client receptive to gentle thought challenging as client was not giving herself credit for the tasks she has accomplished over the past week. Client engaged in discussion on self-advocacy. Worked with group to identify the benefits of self-advocacy, as well as common barriers. Reviewed the personal bill of rights and shared belief that she has the right to make friends and be comfortable around people. Worked with group to identify strategies to increase ability to advocate for oneself. Reported she wants to work on advocating for herself by reminding herself that she has the right to not give excuses for her behavior. Client seemed to benefit from reviewing treatment progress and skill application, as well as learning about how to increase self-advocacy. Client to continue aftercare to reduce negative thinking and improve functioning. Narrative Note: []
== END 2020-03-31 23:59 ==
LOC: BHOG 14:00
PROVIDERS: PCP Family Medicine; Referring Provider Psychiatry & Neurology Psychiatry; Visit Provider Psychiatry & Neurology Psychiatry
DX: F33.1 Major depressive disorder, recurrent, moderate (principal); F41.8 Other specified anxiety disorders
CPT/HCPCS: 90853

== ENCOUNTER 2020-04-11 13:00 | Outpatient (RCR) | payer BC, MEDICAID, SELFPAY ==
--- NOTE | 2020-04-11 14:00 | BH.SGPN.GN ---
Behaviors/Verbalizations/Mental Status: []Client alert and oriented, neatly dressed and groomed. Eye contact good. Speech soft. Motor activity appropriate. Affect incongruent-AEB laughing but reporting apathy. Mood apathetic. Thoughts linear, logical, no signs of hallucinations or delusions. Client Response/Progress/Benefit: []Pt reports feeling like I have an I don't care attitude today. Pt shared she has been struggling to keep up a daily routine and self-motivate which has been impacting her mood. However, pt reports she continues to clean and to reach out to supports which is positive. Pt worked cooperatively with group to identify benefits of having a daily routine which included: improving sense of purpose, increasing productivity, and improve memory. Pt engaged in brainstorming of various daily routine ideas. Pt completed task of creating a daily routine and identifying a supportive mantra. Pt selected the mantra today is a new day, you get out what you put into it. Pt seemed to benefit from support from peers and learning about benefits of routine. Pt encouraged to attend [facility] to help with routine and increase motivation. Pt to continue aftercare group to improve consistent use of healthy coping, maintain gains, and prevent decompensation. Narrative Note: []
--- NOTE | 2020-04-18 02:05 | BH.SGPN.GN ---
Behaviors/Verbalizations/Mental Status: []Client alert and oriented, casually dressed and groomed. Eye contact good. Motor activity appropriate. Speech within normal limits. Affect constricted, mood anxious. Thoughts linear, logical, no signs of hallucinations or delusions. Client Response/Progress/Benefit: []Client was receptive of session, engaged throughout. Client stated her stressor as ?not knowing how to handle feeling in limbo or not knowing how to feel.? Client reported using journaling, healthy distractions, and thought-challenging as healthy coping skills. Peers provided positive encouragement and reminded client to not compare her progress to others. Receptive of discussion on personal accountability and its importance in maintaining mental health stability. Client worked cooperatively with group to identify benefits of maintaining personal accountability. Engaged in discussion and asked questions on different accountability styles and brainstorming strategies for improving ability to hold themselves accountable. Client identified her accountability style as visual and reported she would hold herself accountable by writing down her goals and thoughts in a journal to increase her memory and mindfulness. Progress noted as client increased her self-awareness of accountability and discussed personal progress with peers. However, client continues to struggle with catching and challenging distorted thought patterns. Will continue IOP aftercare group to continue the use of healthy coping skills. Narrative Note: []
--- NOTE | 2020-04-25 02:00 | BH.SGPN.GN ---
Behaviors/Verbalizations/Mental Status: []Client alert and oriented, casually dressed, hygiene tended to. Eye contact good. Motor activity appropriate. Speech within normal limits. Affect constricted, mood euthymic and anxious. Thoughts linear, logical, no signs of hallucinations or delusions. Client Response/Progress/Benefit: []Client responded well to session, attentive and engaged throughout. Client reported following through with her game plan from last week which was to continue cleaning her apartment by writing down her goals and thoughts in a journal. Reported feeling a lack of motivation to continue cleaning her apartment but seeing progress increases motivation. Identified opposite action and thought challenging as healthy coping skills. Contributed to discussion of personal barriers and strategies to improve healthy decisions. Client?s goal with healthy decisions is to use decisional balance sheets to help advocate for herself when it comes to not letting other?s opinions control her actions. Appeared to benefit from reflecting on application of coping skills, identifying barriers, and creating a game plan to improve healthy decision-making skills. Will continue IOP aftercare to continue the use of healthy coping skills, improve daily functioning, and challenge negative thoughts. Narrative Note: []
--- NOTE | 2020-04-25 15:34 | BH.TPR ---
Treatment Plan Review Date of Admission:: 03/07/20 Date of Treatment Plan Review:: 04/25/20 Admitting Diagnoses:: Major depressive disorder, recurrent, moderate without psychosis F33.1; social anxiety disorder; rule out avoidant personality disorder. Current Diagnoses:: Major depressive disorder, recurrent, moderate without psychosis F33.1; social anxiety disorder; rule out avoidant personality disorder. Patient's Response to Treatment:: Client has been mostly consistent with attendance and reports benefitting from IOP aftercare as it reinforces healthy skills and keeps client accountable. Client does well to use opposite action, reports medication compliance, and appears to be following up with counseling. Client also is a positive group member and enjoys connecting with peers each week. However, client continues to struggle with combating negative thoughts, setting boundaries, and setting realistic expectations for herself. Client has not yet followed up with DIANE Corado and was encouraged to do so. Status of Current Problems and Symptoms: Client continues to report issues with feeling foggy and difficulty concentrating. Client's DSM-5 scores for anxiety have increased since discharge from IOP which could be contributed to client reporting more avoidance behaviors. Client also has been reporting stressors such as: not being able to set boundaries, negative self-talk, and lack of routine. Problem #1 Problem Name:: Pt. will maintain or see a reduction in sx AEB client score on the DSM-5 Status of Goals:: Objective 1- partially complete. Client?s DSM-5 scores for depression remained the same since discharge from IOP, but client?s scores for anxiety increased. Specifically, client?s self-report of avoiding things that make client anxious. Objective 2- partially complete. Client reports application of opposite action, reaching out to supports, and cleaning. However, she continues to struggle with boundary setting and challenge negative self-talk. Team Recommendations:: Client is recommended to continue IOP aftercare to prevent decompensation, provide socialization, and reinforce healthy coping skills. Client has been encouraged to explore [facility] as an additional resource to provide support and accountability.
== END 2020-04-28 23:59 ==
LOC: BHOG 13:00
PROVIDERS: PCP Family Medicine; Referring Provider Psychiatry & Neurology Psychiatry; Visit Provider Psychiatry & Neurology Psychiatry
DX: F33.1 Major depressive disorder, recurrent, moderate (principal); F41.8 Other specified anxiety disorders
CPT/HCPCS: 90853

== ENCOUNTER 2020-05-02 14:00 | Outpatient (RCR) | payer BC, MEDICAID, SELFPAY ==
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
--- NOTE | 2020-05-09 14:00 | BH.SGPN.GN ---
Behaviors/Verbalizations/Mental Status: []Client alert and oriented, casually dressed and groomed. Eye contact good. Motor activity appropriate. Speech within normal limits. Affect congruent, mood depressed and anxious. Thoughts linear, logical, no signs of hallucinations or delusions. Client Response/Progress/Benefit: []Client responded well to session, checked in using GAPS. Client?s emotion today is ?decent? as it has been a ?slow day? and client did not have to work which is often the source of anxiety. With prompt, Client reported multiple wins including reaching out to friends when struggling with negative self-talk and continuing to work on challenging these thoughts for herself. Client states using thought challenging, taking breaks, reaching out to supports, and affirmations to cope with daily stressors. Client shared work continues to be a stressor for client and that she struggles with significant distorted thoughts impacting her mental health as a result. Identified these are often due to unrealistic expectations of herself regarding job performance. Receptive of supportive feedback provided by group participants and therapist. Receptive of discussion on self-talk and its influence in maintaining long-term mental health stability. Contributed to strategies for improving effective creation and application of believable personal affirmations. Client?s affirmational statements were ?I have worth and value as an individual? and ??I am important and deserve to have my voice heard?. Progress limited as client continues to report depression and anxiety as a result of ongoing difficulties in actively identifying and challenging self-deprecating thoughts. Client to continue aftercare group to promote gains and further increase application of healthy coping skills. Narrative Note: []
--- NOTE | 2020-05-16 14:00 | BH.SGPN.GN ---
Behaviors/Verbalizations/Mental Status: []Client alert and oriented, casual in appearance. Eye contact good. Motor activity appropriate. Speech within normal limits. Affect constricted. Mood anxious and dysthymic. Thoughts linear, logical, no signs of hallucinations or delusions Client Response/Progress/Benefit: []Pt overall engaged during session AEB pt providing input throughout session and listening attentively to peers. Pt reported she did not complete homework from last session of hanging up her positive affirmations. pt stated she didn't complete task because she forgot. Pt stated she feels like she has been struggling to utilize the skills outside of treatment. Pt reported she doesn't set boundaries with one of her friends so spends too much time helping friend and not self. Pt able to identify positive as taking time to work on [employer] study material for tomorrow. Pt struggled during self-reflection activity, stated she couldn't think clearly to complete worksheet. Pt stated her goal is to take time over the next week to reflect by setting time in the day to focus on herself. Pt progress stagnant AEB pt continuing to report difficulty focusing, not following through with homework and reports low confidence. Pt to continue aftercare to increase utilization of healthy coping, improve confidence and prevent decompensation. Narrative Note: []
--- NOTE | 2020-06-27 08:48 | BH.DS_ITS ---
Discharge Summary - Demographics Date of Admission:: 03/07/20 Discharge Date: 05/23/20 Presenting Problems at Admission:: Client discharged from IOP tx and transitioned to IOP aftercare to maintain gains made in IOP. Client was doing well with using coping skills and reaching out to supports. At admission, client continued to report symptoms of depression and anxiety, though these were decreased. Client endorses ongoing avoidance behaviors, negative self-talk, and lack of boundaries. Discharge Diagnoses:: Major depressive disorder, recurrent, moderate without psychosis F33.1; social anxiety disorder; rule out avoidant personality disorder . Reason for Discharge:: Client completed most of IOP aftercare, but did not show for her last sessions and reported wanting to voluntarily discharge. Client would like to continue with outpatient counseling. - Treatment Progress During Treatment & Response: Client demonstrated variable progress in IOP aftercare as client often reported lack of follow through with her goals. Client also struggled with applying healthy coping skills and reported lack of confidence in her abilities. Client was an engaged participant and she appeared to benefit from peer connection and was receptive to feedback and support from staff. However, client often reported ?not knowing what to say? during discussions which caused client to shut down at times. Client would also report comparing herself to others in the group which fueled unrealistic expectations. Client did not complete the DSM-5 due to client not showing for her last week of aftercare. Will discharge and continue with traditional outpatient counseling. Issues Still to be Addressed:: Client did well at the beginning of IOP aftercare, but about mcc through tx, client reported a regression. Client began avoiding things that made her anxious, was reporting lack of concentration, and was not following through with goals like she had been. Client can benefit from ongoing counseling to provide accountability and positive reinforcement. Client may also need to address past trauma as well as work on challenging negative core beliefs that will continue to hinder progress. Discharge Recommendations/Instructions:: Client was encouraged several times in IOP aftercare to follow up with DIANE Corado for social support, but client never followed through. Client will continue seeing her outpatient providers at [facility] for medication management and outpatient counseling. Discharge Handout: Complete Discharge Handout with client on aftercare options and continuity of care.
== END 2020-05-29 23:59 ==
LOC: BHOG 14:00
PROVIDERS: PCP Family Medicine; Referring Provider Psychiatry & Neurology Psychiatry; Visit Provider Psychiatry & Neurology Psychiatry
DX: F33.1 Major depressive disorder, recurrent, moderate (principal); F41.8 Other specified anxiety disorders
CPT/HCPCS: 90853

== ENCOUNTER 2020-10-16 09:00 | Outpatient (RCR) | payer MEDICAID, SELFPAY ==
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
[2020-10-16 09:31] VITALS: BP 143/86; PULSE 95
== END 2020-10-29 23:59 ==
LOC: BHOG 09:00
PROVIDERS: PCP Family Medicine; Referring Provider Psychiatry & Neurology Psychiatry; Visit Provider Psychiatry & Neurology Psychiatry
DX: F33.2 Major depressive disorder, recurrent severe without psychotic features (principal)

== ENCOUNTER 2020-10-16 09:26 | Outpatient (RCR) | payer MEDICAID, SELFPAY ==
--- NOTE | 2020-10-10 11:05 | BH.SGPN.GN ---
Addendum entered and electronically signed by Holli Pyle 10/17/20 13:39: error in date. correct date is 10/17/20 Original Note: Behaviors/Verbalizations/Mental Status: []Client alert and oriented, casually dressed and groomed. Eye contact good. Motor activity appropriate. Speech within normal limits. Affect constricted, mood anxious and dysthymic. Thoughts linear, logical, no signs of hallucinations or delusions. Client Response/Progress/Benefit: []Client responded well to session, actively listening and providing examples. Group discussed the different categories of coping skills which included distraction, emotional release, grounding, self-love, and thought challenging. Client participated in creating a coping skills ?menu? from the five categories of coping skills. Client's coping skill menu included: organizing/cleaning, listening to music, cooking, having a medication routine, and using a thought log. Appeared to benefit from increasing repertoire of healthy coping skills. Will continue tx to prevent decompensation, improve daily functioning, and increase the use of healthy coping skills. Narrative Note: []
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
--- NOTE | 2020-10-16 10:34 | BH.COMM_ITS ---
Communication Note - Communication with Client Communication Note: Met with patient to complete initial paperwork. No sig nificant changes since pre-admission screening. Completed [place] Suicide Screening. She reports last SI occurred on approximately last week but was fleeting in nature and easily managed. Reports longstanding fleeting SI with thoughts of methods, however no hx of attempts. Reports that thoughts last usually less than a minute, occur 2-5 times weekly, and are easy to control. Protective factor is methodist and family. Does have access to a gun however denies knowing where it is and is willing to give to a support person to reduce access. We had a long discussion on reducing access to means and she was encouraged to have family/friends hold onto gun till end of IOP. Does not present as imminent danger to herself due to no active SI, plan, intent, or hx of attempts. Protective factors. Future-oriented. No information which would necessitate involuntary admission.
--- NOTE | 2020-10-16 11:15 | BH.SGPN.GN ---
Behaviors/Verbalizations/Mental Status: []Client alert and oriented, casual dress, hygiene tended to. Eye contact fair. Motor activity appropriate. Speech within normal limits. Affect constricted, mood anxious.. Thoughts linear, logical, no signs of hallucinations or delusions. Client Response/Progress/Benefit: []Client responded well to session AEB contributing to discussion. Client participated in the discussion of how each resiliency component can help increase personal resiliency. Client engaged in activity, working cooperatively with group. Client?s goal to increase resilience is to keep things in perspective. Client reported she often makes situations appear much worse than they really are. Client stated her goal is to focus on getting two tasks done per day in her apartment as a way to work on keeping her chores in perspective. Pt's first day in IOP. Will continue IOP to improve daily functioning, increase healthy coping and prevent decompensation.
--- NOTE | 2020-10-16 11:40 | BH.MDN_ITS ---
Multi-Disciplinary Note - Note 30-min Individual Time Started:: 10:30 Date: 10/16/20 Purpose of session/treatment goals addressed:: The purpose of this session was to gather information on client's current stressors, symptoms, and treatment goals. Another goal was to build rapport and provide psychoeducation. Eye Contact:: Good Motor Activity:: Appropriate Appearance:: Casual Speech:: Soft Mood:: Anxious, Dysthymic Affect:: Constricted Thoughts:: Other - thought blocking Staff Interventions:: thought challenging, rapport building, strengths perspective, treatment planning, goal setting Client Response:: Client responded well to session, open to meeting with therapist. Client participated in IOP tx from December 2019 through March 2020 and found it helpful at the time. Client shared over the past few months her depression has worsened and her functioning has significantly decreased. Client reports lack of energy, lack of self-care, and avoidance behaviors. Client shared her apartment is a mess and client tries to avoid staying there because she does not like to look at it. Client also feels unable to clean because everything is so dirty. Client reports issues with memory and retaining information that are consistent with issues reported last time client was in IOP. Client recognizes that some of her issues with retaining could be due to social anxiety and fear of not knowing what to say. Client reports her negative thoughts are not as bad as they were the first time client did IOP, but she does recognize distortions. Client reported to [facility] psychiatrist that she stopped her medications. Client has an outpatient psychiatrist, but she has not been seeing her outpatient therapist. Client and therapist discussed the benefit of client writing down her take-a-ways from individual sessions to help with memory/retaining. Client's goal for tonight is to complete a bible study reading. Risks/Concerns:: Client denies any suicidal ideations, plan, or intent as of 10/16/20. Future oriented and protective factors. Progress Toward Goals/Plan:: Client's first day of IOP tx. Client identified tx goals to be improve functioning at home and with hygiene, improve memory/retaining information, and to feel comfortable in my own space. Client reports her symptoms have worsened over the past several months. Client currently endorses increased appetite, lack of motivation, anhedonia, sadness, decreased energy, and anxiety. Client will continue IOP tx to prevent further decompensation, improve daily functioning, and challenge negative thought patterns. Time Stopped:: 11:00
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
--- NOTE | 2020-10-16 13:45 | BH.DR.ITP ---
Initial Treatment Plan Patient Information Visit Information: ADMISSION DATE: EXPECTED LOS: 4-6 weeks Problems/Symptoms Problem #1:: Depression Symptom:: Sadness, anhedonia, hopelessness, worthlessness, decreased appetite and weight loss, passive thoughts of , low energy, decreased concentration Problem #2:: Anxiety Symptom:: Worry, rumination
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
[2020-10-16 14:17] VITALS: BP 143/86; PULSE 95
--- NOTE | 2020-10-16 14:39 | BH.MTP_ITS ---
[facility] Treatment Plan - Patient Information Program Physician:: Dr. Smiley Curry Primary Therapist:: Holli HERRERA - Psychiatric Diagnoses Psychiatric Diagnoses:: Major depressive disorder, recurrent, severe without psychosis F33.2; Social anxiety disorder; Rule out avoidant personality disorder Diagnosis Code(s):: F 33.2 - Estimated LOS Estimated LOS (in weeks):: 6 Problem/Goal #1 - Problem/Goal #1 Stated Goal:: Client will decrease depressive symptoms, anhedonia, and lack of motivation while improving daily functioning. Description of Barriers: Client reports lack of motivation and energy as well as a history of difficulty with self-motivation. Client admits that she often uses avoidance when anxious, depressed, or overwhelmed. Client is not currently seeing a therapist or family service caseworker. Client lack confidence in her skills which could reinforce negative self-talk. Functional Impact: Client is a 44-year-old female with a history of depression and social anxiety. Client was referred by her PCP due to worsening mental health symptoms that were impacting client's ability to function. Client previously participated in IOP tx from 01/08/20-03/04/20. At admission, client shared she has been struggling for months and that I'm not functioning very well. Client reports she has not been doing chores, personal hygiene has decreased, and she avoids her apartment due to the mess. Client currently endorses a depressed mood, increased appetite with 25 pound weight gain, lack of motivation, loss of energy, increased sleep, lack of concentration, hopelessness, and worthlessness. Client denies suicidal ideations, but does endorse passive thoughts of . Client denies any homicidal ideations. Client has history of social anxiety and client avoids things that make her anxious. Client's symptoms are currently impacting her daily functioning. Goal Relevant Strengths/Supports: Client's lalitha is important to her and client participates in a bible study. Client has her neighbor, parents, and psychiatrist for support. Client has previously completed IOP and found it helpful in the past. - Objectives Objective #1 Stated Objective: Client will learn and utilize 2-3 healthy coping strategies to better manage depressive symptoms as shown by a reduced DSM-5 scores for depression. Interventions: Through group and individual sessions, therapist will help client identify triggers and warning signs of depression and emotional dysregulation including emotional, physical, and behavioral changes. Therapist will teach client various coping skills to manage her symptoms and give client tangible resources to use to regulate emotions. Therapist will use cognitive restructuring techniques and help client gain awareness of negative thoughts that reinforce guilt and depression. Therapist will provide psychoeducation on maintenance cycles and help client learn ways to break unhealthy maintenance cycles. Therapist will help client incorporate behavioral activation and assist client in setting SMART goals Discharge Criteria: Client will have met this goal when she can report learning and using at least 2 coping skills to manage depressive symptoms. Additionally, client will have met this goal when her depressive symptoms have reduced on the DSM-5 scale. Target Date: 11/27/20 Review Date: 11/13/20 Status: open Objective #2 Stated Objective: Client will reduce depression and feelings of being hopelessness by accomplishing 1-2 small goals a week. Interventions: Through group and individual sessions, client will learn how to set small SMART goals to promote mood stability. Therapist will teach client the different kinds of self-care as well as the benefits of self-care. Therapist will help client problem-solve barriers and identify ways to increase accountability. Discharge Criteria: Client will have accomplished this goal when can report accomplishing at least one small goal a week. Target Date: 11/27/20 Review Date: 11/13/20 Status: open Problem/Goal #2 - Problem/Goal #2 Stated Goal:: Client will reduce anxiety, avoidance behaviors, and ruminations. Description of Barriers: Client reports lack of motivation and energy as well as a history of difficulty with self-motivation. Client admits that she often uses avoidance when anxious, depressed, or overwhelmed. Client is not currently seeing a therapist or family service caseworker. Client lack confidence in her skills which could reinforce negative self-talk. Functional Impact: Client is a 44-year-old female with a history of depression and social anxiety. Client was referred by her PCP due to worsening mental health symptoms that were impacting client's ability to function. Client previously participated in [facility] tx from 01/08/20-03/04/20. At admission, client shared she has been struggling for months and that I'm not functioning very well. Client reports she has not been doing chores, personal hygiene has decreased, and she avoids her apartment due to the mess. Client currently endorses a depressed mood, increased appetite with 25 pound weight gain, lack of motivation, loss of energy, increased sleep, lack of concentration, hopelessness, and worthlessness. Client denies suicidal ideations, but does endorse passive thoughts of . Client denies any homicidal ideations. Client has history of social anxiety and client avoids things that make her anxious. Client's symptoms are currently impacting her daily functioning. Goal Relevant Strengths/Supports: Client's lalitha is important to her and client participates in a bible study. Client has her neighbor, parents, and psychiatri st for support. Client has previously completed IOP and found it helpful in the past. - Objectives Objective #1 Stated Objective: Client will identify 2-3 anxiety triggers and 2 coping skills to use when feeling anxious to manage anxiety as shown by decreasing her DSM-5 scores for anxiety. Interventions: Therapist will provide education on anxiety, avoidance behaviors, and maintenance cycles. Therapist will help client explore personal symptoms and warning signs of anxiety. Therapist will teach client coping skills to improve emotional regulation, mindfulness, and distress tolerance to help client cope with anxiety in the moment. Discharge Criteria: Client will have accomplished this goal when she can identify at least 2 triggers and report using 2 coping skills to manage anxiety. Additionally, client will have accomplished this goal when her DSM-5 scores show a reduction for anxiety. Target Date: 11/27/20 Review Date: 11/13/20 Status: open Objective #2 Stated Objective: Client will improve memory and retention skills that have been hindered by anxiety by writing summaries of each group and individual session. Interventions: Therapist will help client combat distortions that reinforce self-doubt and anxiety. Therapist will provide client time after each session to reflect on what client remembers and give client feedback. Therapist will help client develop techniques to improve memory at home. Discharge Criteria: Client will have accomplished this goal when she can self- report improved memory and consistent application of retention skills. Target Date: 11/27/20 Review Date: 11/13/20 Status: open
--- NOTE | 2020-10-17 09:00 | BH.SGPN.GN ---
Behaviors/Verbalizations/Mental Status: [] Eye contact is good. Motor activity is appropriate. Appearance is casual. Speech is Appropriate. Mood is anxious. Affect is congruent. Thoughts are linear and logical. Reviewed daily check in sheet and no reports of suicidal ideations or intent. Client Response/Progress/Benefit: [] Pt was an active participant in group discussion. Attentive. Pt states I'm still struggling with my daily functioning. Had goal to complete 2 small tasks for herself which she did not complete. Reports I did help someone else though. She states that things are so overwhelming she has not motivation to even begin. She reports that she also fears failing so she does not even wish to start things. Group provided some feedback and suggestions for goal-setting and motivating oneself to start tasks. She talked at length regarding how her mental health is debilitating and leads to completely shutting down. No progress noted. Benefited from group support, encouragment, and feedback. Will continue in IOP to prevent decompensation, increase healthy coping, and to improve daily functioing. Narrative Note: []
--- NOTE | 2020-10-17 10:05 | BH.SGPN.GN ---
Behaviors/Verbalizations/Mental Status: []Client alert and oriented, casually dressed and groomed. Eye contact good. Motor activity appropriate. Speech within normal limits. Affect constricted, mood dysthymic and anxious. Thoughts linear, logical, no signs of hallucinations or delusions. Client Response/Progress/Benefit: [] Pt was an active participant in group discussion and activity. Attentive during discussion of what coping skills are and how people learn coping skills. Pt worked with peers to identify why people use unhealthy coping skills such as it is easier, habit, and short-term relief. Worked within small group to complete challenge activity requiring use of several coping skills. Did well to provide and receive supportive feedback. Group processed the activity and connected it back to having a strong base of internal and external healthy coping skills. Benefited from increased awareness of coping skills, benefits in using healthy coping skills, and common reasons why people use unhealthy coping skills. Will continue in IOP to prevent decompensation, reduce avoidance, and improve overall functioning impaired by depression. Narrative Note: []
--- NOTE | 2020-10-21 09:00 | BH.SGPN.GN ---
Behaviors/Verbalizations/Mental Status: [] Eye contact is good. Motor activity is appropriate. Appearance is casual. Speech is Appropriate. Mood is anxious. Affect is congruent. Thoughts are linear and logical. No evidence of psychosis. Reviewed daily check in sheet and no reports of suicidal ideations or intent. Client Response/Progress/Benefit: [] Pt participated at times during group discussion. Attentive. Daily symptom tracker notes 03/05 for anxiety and depression. Emotion for today is frustrated. Pt states that she continues to avoid tasks that she wants to complete which mainly focus around cleaning her apartment. Shared obstacles to accomplishing these tasks which range from no energy to not wanting to touch certain items b/c they are dirty. Numerous mental health obstacles, cognitive distortions, and negative self-talk. Reports that she is forcing herself to leave the apartment however believes that when she does it is more beneficial. Limited progress noted. Benefited from group support and encouragement. Will continue in IOP to prevent decompensation, increase healthy skills, and to improve functioning. Narrative Note: []
--- NOTE | 2020-10-21 11:15 | BH.SGPN.GN ---
Behaviors/Verbalizations/Mental Status: []Client alert and oriented, casually dressed and groomed. Eye contact fair to good. Motor activity appropriate. Speech within normal limits. Affect constricted, mood anxious and depressed. Thoughts linear, logical, no signs of hallucinations or delusions. Client Response/Progress/Benefit: []Client engaged in session AEB listening attentively to others, as well as nodding and taking notes throughout discussion. Client was an active participant in challenge activity and did well to help group with [id number] problem solving, providing ideas and encouragement throughout. Client remained attentive during discussion about the 4 A's of managing stress and nodded in connection with the various benefits of each. Shared wanting to work on the skill of altering to improve her mindset regarding client?s ability to improve overall mental health and wellness as well as reduce negative self-talk. Client discussed this would reduce depression and help improve overall confidence levels. Client seemed to benefit from increased awareness of the impact of stress on mental health and increasing repertoire of stress management strategies. Continues to struggle with active implementation of skills outside the tx environment. Will continue IOP tx to prevent decompensation, continue to promote mood stability, as well as encourage consistent application of healthy coping skills. Narrative Note: []
--- NOTE | 2020-10-21 12:08 | BH.MDN ---
Multi-Disciplinary Note - Note 60-min Individual Time Started:: 10:35 Date: 10/21/20 Purpose of session/treatment goals addressed:: To work on goal #1 objective #2 and goal #2 objective #2 of client's tx plan. Eye Contact:: Good Motor Activity:: Appropriate Appearance:: Casual Speech:: Appropriate Mood:: Anxious, Dysthymic Affect:: Congruent Thoughts:: Linear, Logical, No evidence of hallucinations/delusions noted Staff Interventions:: thought challenging, motivational interviewing, CBT techniques, strengths perspective, goal setting Client Response:: Client responded well to session, open to meeting with therapist. Client reports this weekend she went to hinduism, but other than that I didn't really do anything. Client shared she wants to have a purpose/reason to get up in the mornings. Client stated her house is still a mess and because she has gained weight, client does not feel comfortable going public places. Client reports long-standing history of social anxiety and appearing stupid. Therapist brought awareness the use of numerous cognitive distortions and client admits that she is often negative with herself. Client reports she fears that once people find out the real her they will not want to be around her. Client also believes that she is stupid when she does not know what to say and she feels awkward. Client willing to work on challenging these distortions and setting small goals. Client will begin a thought log to bring awareness to her use of distortions and will bring them to session next week. Client will also do some of her dishes and go get some new clothing. Client reports poor body image right now that reinforces depression and avoidance per client's report. Discussion on acceptance, self-compassion, and building self-worth. Risks/Concerns:: Client denies any suicidal ideations, plan, or intent as of 10/21/20. Future oriented. Progress Toward Goals/Plan:: Client started IOP last week, so limited progress. Client has been consistent with attendance so far and has been taking notes during sessions. Client is responding well to goal #2 objective #2 and is able to challenge anxious thoughts in the moment that hinder memory. Client reports her motivation level is slightly increased today. No significant changes in functioning or symptoms since last week. Will continue IOP tx to prevent decompensation, improve overall functioning, and combat distorted thought patterns. Time Stopped:: 11:30
--- NOTE | 2020-10-23 09:05 | BH.SGPN.GN ---
Behaviors/Verbalizations/Mental Status: [] Pt eye contact fair, casually dressed, motor activity appropriate, speech normal rate and tone, mood anxious and depressed, constricted affect, thoughts linear and intact, no evidence of delusions or hallucinations. Reviewed client?s symptom tracker, no signs of suicidal ideation, plan, or intent as of today. Client Response/Progress/Benefit: []Pt responded well to session AEB by listening to others and sharing thoughts and feelings. Pt shared I haven't been doing well on my goal of doing two things a day to clean my house. Pt stated she is frustrated with herself because she helps her neighbor clean but can't seem to make herself clean her own house. Pt reported she continues to avoid being home because she doesn't want to deal with her apartment. Pt stated she avoids washing her own dishes because believes she can never get them clean enough. Pt reported mental health positive as accomplishing goal of buy two new shirts for herself. Pt stated today she is feeling more energized and positive. Pt reported feeling hopeful she can get more done today. Receptive to feedback from peers. Continues to struggle with avoiding things that make her anxious. Pt to continue IOP to increase follow through of goals, challenge negative thoughts and prevent decompensation. Narrative Note: []
--- NOTE | 2020-10-23 10:16 | BH.SGPN.GN ---
Behaviors/Verbalizations/Mental Status: []Client alert and oriented, casually dressed and groomed. Eye contact fair to good. Motor activity appropriate. Speech within normal limits. Affect congruent, mood anxious and depressed. Thoughts linear, logical, no signs of hallucinations or delusions. Client Response/Progress/Benefit: []Pt was an active participant AEB taking notes and listening throughout group discussion, as well as completed anger worksheet. Group worked together to define anger and discussed the ways anger can impact one internally and externally. Pt nodding in connection that anger can lead to damaged relationship with oneself via negative self-talk and rumination if not expressed in healthy ways. Expressed this has impacted her self-esteem in the past. Completed the iceberg exercise and identified emotions that tend to ?live under the surface? of pt?s own anger include: feeling annoyed, embarrassed, trapped, rejected, regretful, and insecure. Pt also gained awareness of their typical responses to anger which included: shutting down, more dramatic, and breathing heavier. Benefited from group by increasing understanding of the impact of anger on mental health. Recommended continued tx to continue to improve emotion regulation skills, prevent decompensation, and continue to promote improved self-care. Narrative Note: []
--- NOTE | 2020-10-23 11:20 | BH.SGPN.GN ---
Behaviors/Verbalizations/Mental Status: []Client alert and oriented, casually dressed and groomed. Eye contact good. Motor activity appropriate. Speech within normal limits. Affect congruent, mood content. Thoughts linear, logical, no signs of hallucinations or delusions. Client Response/Progress/Benefit: []Pt was engaged throughout AEB participating in discussion and taking notes. Pt provided feedback during the group activity. Contributed as group brainstormed healthy coping skills for better managing anger which included: deep breathing, counting, exercise, getting creative, and listening to music. Pt also gained awareness of costs of unmanaged anger. Pt appeared to benefit from identifying different techniques to manage anger as well as gaining awareness of the costs of anger. Pt selected using creativity and art to better manage anger. Will continue IOP tx to prevent decompensation, improve daily functioning that has been impaired by depression, and reduce avoidance behaviors. Narrative Note: []
--- NOTE | 2020-10-23 11:40 | PCM.BH.PN ---
Progress Note Progress Note: History of Present Illness/Interim History: [] Patient is a 44-year-old female who is seen in follow-up at the [facility] behavioral health IOP program. I last saw the patient 1 week ago when she started the program in order to get treatment for her depression and anxiety. At that time she did not know the exact medications and their doses that she was taking. Today she states that she has a list that confirms that the dose of her Abilify is 15 mg and the dose of her Prozac is 80 mg and was increased several months ago. In addition the medication that she can remember is clomipramine 25 mg at bedtime. Patient's mood remains depressed overall and she still has occasional passive thoughts that she would not care if she . She denies any suicidal ideation, plan for suicide, homicidal ideation, hallucinations or delusions. She feels that she is benefiting from the IOP program and feels that her mood may be slightly better due to the structure and the support that the IOP program gives her. She still complains of feeling somewhat foggy a lot of the time but does not feel it is due to the medications as she was feeling this way when her depression worsened. The patient states that she was unable to find out if her TSH or vitamin D were checked recently and she feels it probably has been a long time. Current Psychiatric Medications: [] Abilify 15 mg p.o. daily on in the morning; clomipramine 25 mg p.o. q. at bedtime; Prozac 80 mg p.o. daily (dose increased several months ago). Mental Status Examination: [] Patient is a 44-year-old female who appears casually dressed and groomed with good hygiene. She has no psychomotor agitation or retardation. Eye contact is good and speech is normal rate and rhythm and fluent with no pressure. Mood is depressed. Affect is full and normal today. Thought process is goal-directed and organized. Thought content: There is evidence of occasional passive thoughts of . There is no evidence of suicidal ideation, plan for suicide, homicidal ideation, hallucinations, delusions. Judgment is intact. Insight is limited but improving. Impulsivity is low. Diagnoses: [] 1. Major depressive disorder, recurrent, severe without psychosis 2. Social anxiety disorder 3. Rule out avoidant personality disorder 4. Hypothyroidism 5. Primary support and work issues Plan: [] The patient will continue the IOP program at [facility] as the structure, support, education, individual and group therapy will hopefully prevent worsening of the patient's symptoms which might require hospitalization. She felt safe during the interview and if it anytime she does not feel safe she will let us know or go to the emergency room. The risks, options, possible complications and side effects of the medications were again discussed with the patient and she understands and accepts these. She will continue to follow-up with her outpatient psychiatric and medical providers. No medication changes were made today. A TSH and vitamin D level were ordered today. I will see the patient in follow-up in 2 weeks or as needed.
--- NOTE | 2020-10-25 09:00 | BH.SGPN.GN ---
Behaviors/Verbalizations/Mental Status: [] Eye contact is good. Motor activity is appropriate. Appearance is casual. Speech is Appropriate. Mood is anxious. Affect is congruent. Thoughts are linear and logical. No evidence of psychosis. Reviewed daily check in sheet and no reports of suicidal ideations or intent. Client Response/Progress/Benefit: [] Pt participated at time during the group discussion. Attentive. Emotion for today is hopeful. Mental health wins include washing her dishes and cleaning up some around the house. Proud of herself for addressing and completing tasks. Progress noted per pt report. Improved motivation and energy related to decrease in depressive symptoms. Utilizing skills since entering IOP and also benefited from postiive support. Benefited from group discussion, feedback, and support. Will continue in IOP to maintain safety, prevent decompensation, and improve functioning. Narrative Note: []
--- NOTE | 2020-10-25 10:05 | BH.SGPN.GN ---
Behaviors/Verbalizations/Mental Status: []Eye contact is good. Motor activity is appropriate. Appearance is casual. Speech is Appropriate. Mood is anxious. Affect is constricted. Thoughts are linear and logical. No evidence of psychosis. Client Response/Progress/Benefit: []Pt was an active participant in group discussion AEB taking notes and providing input throughout. Attentive during psychoeducation reviewing internal and external obstacles and provided examples throughout. Participated in the reflection activity in which clients lalo pictures depicting their current and desired reality and shared with the group. Pt described her current reality as feeling trapped and ?afraid of life.? Pt described her desired reality as functioning and ?just doing normal things.? Pt acknowledges that her current mindset is a barrier to pt desired reality. Pt also reflected on strengths she has that will help pt get to her desired reality such as using opposite action and ?I still haven?t given up yet.? Benefited from group by increasing current awareness and expectations for progress. Will continue IOP tx to reduce avoidance behaviors, reduce distortions, and improve overall functioning. Narrative Note: []
--- NOTE | 2020-10-25 11:10 | BH.SGPN.GN ---
Behaviors/Verbalizations/Mental Status: []Client alert and oriented, casually dressed and groomed. Eye contact fair. Motor activity appropriate. Speech within normal limits. Affect constricted. Mood depressed and anxious. Thoughts linear, logical, no signs of hallucinations or delusions. Client Response/Progress/Benefit: []Client engaged during activity and provided ideas on how to cope with internal barriers that keep clients stuck from moving towards goals. Client identified personal barriers to desire reality include: negative self-talk, anxiety, not setting boundaries, and low motivation. Client reported she wants to work on decreasing self-doubt by acknowledging her wins everyday. Benefited from group by identifying obstacles and solutions to desired reality. Will continue IOP tx to prevent decompensation, improve daily functioning and challenge negative thoughts. Narrative Note: []
--- NOTE | 2020-10-28 09:05 | BH.SGPN.GN ---
Behaviors/Verbalizations/Mental Status: [] Eye contact is good. Motor activity is appropriate. Appearance is casual. Speech is Appropriate. Mood is anxious. Affect is congruent. Thoughts are linear and logical. No evidence of psychosis. Reviewed daily check in sheet and no reports of suicidal ideations or intent. Client Response/Progress/Benefit: [] Pt participated when prompted. Attentive. Emotion for today is anxious. Daily symptom tracker notes 04/05 for anxiety and depression. Mental health wins over the weekend included attending two social functions at her [employer]. Disucussed the benefits of this as well as the anxiety. Shared that she is fearful that once people get to know the true her they will abandon her. Group related to this and provided feedback. Group also challenged this thought which was beneficial for patient. She was negative towards herself for not cleaning up or addressing other tasks in her house. Benefited from group support, encouragement, and feedback. Porgress noted per pt report. Will continue in IOP to maintain safety, improve functioning, and stabilize mood. Narrative Note: []
--- NOTE | 2020-10-28 10:10 | BH.SGPN.GN ---
Behaviors/Verbalizations/Mental Status: []Eye contact is good. Motor activity is appropriate. Appearance is casual. Speech is Appropriate. Mood is anxious and dysthymic. Affect is constricted. Thoughts are linear and logical. No evidence of psychosis. Client Response/Progress/Benefit: []Pt participated during group discussions and attentive during psychoeducation. Participated and provided insight along with peers on obstacles or potholes that hinder our ability to communicate in stressful situations. Group identified the following obstacles; yelling, defensiveness, lack of awareness, shutting down, over-explaining, crying, and scattered thinking. Pt provided insight on how emotion and mood can impact effective communication. Pt did well in her role in the experiential activity and chose a role outside of her comfort zone. Pt also gained insight that her anxiety leads to self-sabotage because pt shuts down and avoids others which keeps pt isolated. Benefited from increased awareness on how our emotions impact our communication. Will continue in IOP to reduce avoidance behaviors, replace distorted thoughts of self, and improve overall functioning. Narrative Note: []
--- NOTE | 2020-10-28 11:20 | BH.SGPN.GN ---
Behaviors/Verbalizations/Mental Status: []Client alert and oriented, casually dressed and groomed. Eye contact fair. Motor activity restless. Speech within normal limits. Affect constricted, mood anxious and depressed. Thoughts linear, logical, no signs of hallucinations or delusions. Client Response/Progress/Benefit: []Client engaged in session AEB client listening attentively to peers and providing input. Attentive during psychoeducation on 4 zones of regulation (blue, green, yellow and red). Client able to identify feelings and behaviors for each zone. Client identified coping skills one can use to support self in each zone. Client stated belief that she is most often in the blue zone because she often feels depressed. Client stated this results in her staying withdrawn, isolated and uninterested. Benefited from increased education on zones of regulation or stages of alertness for emotions and healthy coping skills to use for each zone. Will continue IOP tx to increase consistent use of healthy coping, improve daily functioning and prevent decompensation.
== END 2020-10-29 23:59 ==
LOC: BHIOP 09:26
PROVIDERS: PCP Family Medicine; Referring Provider Psychiatry & Neurology Psychiatry; Visit Provider Psychiatry & Neurology Psychiatry
DX: F33.2 Major depressive disorder, recurrent severe without psychotic features (principal); F41.8 Other specified anxiety disorders; E03.9 Hypothyroidism, unspecified; Z79.899 Other long term (current) drug therapy
CPT/HCPCS: 90792; 99213; H2012; H2020; S9480; T1002; 90832; 90837

== ENCOUNTER 2020-10-30 08:28 | Outpatient (RCR) | payer MEDICAID, SELFPAY ==
[2020-10-30 00:44] VITALS: BP 143/86; PULSE 95; BMI 28.3
--- NOTE | 2020-10-31 09:10 | BH.SGPN.GN ---
Behaviors/Verbalizations/Mental Status: [] Eye contact is good. Motor activity is appropriate. Appearance is casual. Speech is Appropriate. Mood is anxious. Affect is congruent. Thoughts are linear and logical. No evidence of psychosis. Reviewed daily check in sheet and no reports of suicidal ideations or intent. Client Response/Progress/Benefit: [] Pt participated at times during group discussion. Attentive. Did not provided feedback to peers. Emotion for today is grateful. Stated ?I?m feeling better when I?m here because I?m doing something?. Reports being frustrated and overwhelmed when she is alone in the apartment. Her apartment and perceived tasks is primary stressor and has been for years. Often distracts herself from thinking about her tasks for fear of being overwhelmed. Group continues to provided support and encouragement. Offered suggestions to hire someone to help however pt is reluctant however insightful that she does need help to complete the tasks. Limited progress. Benefited from group feedback. Will continue in IOP to prevent decompensation, increase healthy coping, and to maintain safety. Narrative Note: []
--- NOTE | 2020-10-31 10:10 | BH.SGPN.GN ---
Behaviors/Verbalizations/Mental Status: []Eye contact is good. Motor activity is appropriate. Appearance is casual and well-groomed. Speech is Appropriate. Mood is anxious and dysthymic. Affect is constricted. Thoughts are linear and logical. No evidence of psychosis. Client Response/Progress/Benefit: []Pt participated at times during group discussion, sharing she has kept herself from support because of negative thinking. Active during group activity. Attentive during psychoeducation. Pt provided insight and feedback during group discussion on how social supports can be similar to a safety net, the importance of social supports, benefits of social supports, and how strong or poor social supports impact our mental health. Worked well with peers in experiential activity and was in a role that required pt to step outside her comfort zone. Benefited from increased awareness of the benefits of social support and the importance of maintain a balanced support system. Will continue IOP tx to reduce avoidance, increase self-confidence, and improve overall functioning. Narrative Note: []
--- NOTE | 2020-10-31 15:14 | BH.MDN ---
Multi-Disciplinary Note - Note 60-min Individual Time Started:: 11:45 Date: 10/31/20 Purpose of session/treatment goals addressed:: To work on goal #2 of client's tx plan. Another goal was to identify mistaken beliefs that client has and how they impact client's relationships and view of self. Eye Contact:: Good Motor Activity:: Appropriate Appearance:: Neat Speech:: Soft Mood:: Anxious, Dysthymic Affect:: Constricted Thoughts:: Circular, No evidence of hallucinations/delusions noted Staff Interventions:: thought challenging, motivational interviewing, psychoeducation on: - mistaken beliefs, CBT techniques, strengths perspective, goal setting, taught coping skills Client Response:: Client responded well to session, open to meeting with therapist. Client reports she did go shopping for new shirts which was one of her goals from last week. Client has also been thinking about renting a storage unit to help de-clutter her apartment. As client is talking about the storage unit's benefits, she began questioning this and worrying about the future. Client shared what if I rent this and then I run out of money in three years. Receptive to thought challenging and able to see other benefits outside of saving money such as gaining back functioning and security at home if she were to rent a storage unit. Client completed the mistaken belief questionnaire for homework and gained awareness of several mistaken beliefs that she has held onto over the years. These included my worth and security depend on the approval of others and I'm powerless and can't do much about my life. Discussed how these beliefs have impacted client's interactions, self-esteem, and relationships over the years. Client wants to increase self-worth and recognizes this will take client seeking her own approval over others. Client gained insight that she is reluctant to release these mistaken beliefs because they seem true to me. Discussed what client can do to begin improving core beliefs. Client wants to reach out to her brother and his and rent a storage unit. Client reports belief this will give client the chance to get back old support and to clear up space in her apartment. Client also encouraged to practice catching her negative thought patterns and attempting to reframe them. Risks/Concerns:: Client denies any suicidal ideations, passive wishes of , or homicidal ideations. Progress Toward Goals/Plan:: Client is demonstrating progress towards [place] goals AEB client's report of accomplishing her goal of buying some new clothes and client did get rid of some items from her kitchen. Client continues to respond well to goal #2 objective #2 and is able to remember sevilla points from session. Client continues to struggle with indecisiveness and often reports freezing when overwhelmed. Client also continues to avoid cleaning her apartment and endorses rumination. Client reports her motivation levels have improved and she feels more positive since starting IOP. Will continue TX to improve daily functioning, reduce negative thinking, and reduce avoidance. Time Stopped:: 12:40
--- NOTE | 2020-11-01 09:04 | BH.SGPN.GN ---
Behaviors/Verbalizations/Mental Status: Client alert and oriented, casual dress. Eye contact good. Motor activity appropriate. Speech within normal limits. Affect congruent, mood anxious. Thoughts linear, logical, no signs of hallucinations or delusions. Reviewed client?s symptom tracker, no signs of suicidal ideation, plan, or intent as of today. Client Response/Progress/Benefit: Client was receptive to feedback from peers and clinician and was engaged throughout group. Client identified her emotion of the day as increasingly anxious. Client discussed feeling ?lost? in her apartment, being unsure where to start in moving items to a storage unit. Clinician and group discussed not taking on too much and working one step at a time, which client responded well to. Clinician and client set goal of researching storage unit pricing and locations, which is the first step to client?s goal of cleaning up her apartment, as well as thinking about self-care. Client discussed ?What If?? thoughts and identified how they are detrimental with the aid of group discussion and clinician. Will continue IOP treatment to gain healthy coping skills knowledge, improve anxiety management, and increase functioning . Narrative Note: []
--- NOTE | 2020-11-01 10:10 | BH.SGPN.GN ---
Behaviors/Verbalizations/Mental Status: [] Eye contact is fair. Motor activity is appropriate. Appearance is casual. Speech is Appropriate. Mood is anxious and dysthymic. Affect is constricted. Thoughts are linear and logical. No evidence of psychosis. Client Response/Progress/Benefit: [] Pt was an engaged participant in group discussions. Attentive and provided insights during psychoeducation on benefits and disadvantages of anxiety and review of different types of Anxiety Disorders (Social Anxiety, TRACY, OCD, PTSD, and Separation Anxiety). Completed worksheet on identifying her own physical symptoms or signs of anxiety which pt identified most frequent physical signs as: fidgeting, heavy breathing, decreased appetite, can't think straight and sweaty palms. Benefited from increased awareness of physiological signs of anxiety as well as differences between 'normal' anxiety and anxiety disorder. Will continue in IOP to improve daily functioning, increase consistent use of healthy coping and prevent decompensation.
--- NOTE | 2020-11-01 11:15 | BH.SGPN.GN ---
Behaviors/Verbalizations/Mental Status: []Client alert and oriented, neatly dressed and groomed. Eye contact good. Motor activity appropriate. Speech within normal limits. Affect flat, mood anxious. Thoughts linear, logical, no signs of hallucinations or delusions. Client Response/Progress/Benefit: []Client was an active participant in group discussion and providing good insight to peers. Reviewed safety behaviors she engages in that reinforce anxiety. Attentive during psychoeducation on mindfulness coping skills and their impact on mental health wellness. The group worked together to brainstorm anxiety reduction strategies. Client shared she used to do puzzles a lot to help practice mindfulness and relax, but now ?I won?t let myself do them because I should be cleaning.? Client acknowledged that not allowing herself to practice mindfulness skills at home only makes client?s avoidance worse. Client willing to work on a puzzle for 5 minutes a day this weekend. Client seemed to benefit from increased repertoire of anxiety reduction skills. Client will continue IOP tx to increase self-confidence, reduce anxiety, and improve daily functioning. Narrative Note: []
--- NOTE | 2020-11-06 08:57 | BH.SGPN.GN ---
Behaviors/Verbalizations/Mental Status: []Client alert and oriented, casually dressed and groomed. Eye contact good. Motor activity appropriate. Speech within normal limits. Affect congruent, mood euthymic, anxious. Thoughts linear, logical, no signs of hallucinations or delusions. Reviewed client?s symptom tracker, no risk for suicidal ideation, plan, or intent as of 11/06/20 Client Response/Progress/Benefit: []Client responded well to session, attentive and willing to process with group. Client reports feeling ?encouraged? today as she was able to accomplish several goals this morning prior to IOP group. Discussed going through some items at her house as well as beginning to decorate for fall. Shared these are personal wins as she often struggles with motivation and had been having a particularly difficult day the day before. Noted in the past she would have continued to spiral but instead took the initiative to use opposite action and accomplish a few small goals this morning. Notes feeling more determined and confident as a result. Appeared to benefit from identifying areas of progress and giving herself credit for several personal wins. Continues to struggle with consistency in skill application. Recommended continued IOP tx to further promote application of behavior activation and small goal-setting skills, improve symptom management, and prevent decompensation. Narrative Note: []
--- NOTE | 2020-11-06 10:10 | BH.SGPN.GN ---
Behaviors/Verbalizations/Mental Status: [] Eye contact is good. Motor activity is appropriate. Appearance is neat. Speech is Appropriate. Mood is anxious. Affect is congruent. Thoughts are linear and logical. No evidence of psychosis. Client Response/Progress/Benefit: [] Pt was an active participant in group discussions. Attentive during psychoeducation. Pt along with peers added their perspective on the definition of stigma as it relates to mental health. Pt participated in interactive group discussion on the topic. Pt along with peer identified how stigma can impact one which included; keeps one more depressed, keeps one from recognizing or addressing mental health, keeps us with showing and being honest about our emotions, keeps one from opportunities, can keep one from social and interacting with friends/family, etc, can impact relationships, and can keep one from seeking help for fear of being labeled.Benefited from increased awareness of mental health stigma and how it could impact patient. Will continue in IOP to increase prevent decompensation, stabilize mood, and increase healthy coping skills. Narrative Note: []
--- NOTE | 2020-11-06 11:15 | BH.SGPN.GN ---
Behaviors/Verbalizations/Mental Status: []Client alert and oriented, casually dressed, hygiene appeared to be tended to. Eye contact fair. Motor activity appropriate. Speech within normal limits. Affect constricted, mood dysthymic. Thoughts linear, logical, no signs of hallucinations or delusions. Client Response/Progress/Benefit: []Client engaged participant AEB pt provided some input during small group discussion, taking notes and listening attentively to others. Group brainstormed strategies to combat social and perceived stigma which included: educating others, no longer using negative language about mental illness, being open about mental health, and not reinforcing stigma with behaviors or labels. Client stated she will attempt to decrease mental health stigma by accepting self and not saying negative labels to herself. Appeared to benefit from increasing awareness of strategies to combat stigma. Will continue IOP tx to continue use of healthy coping, improve daily functioning and prevent decompensation. Narrative Note: []
--- NOTE | 2020-11-08 10:10 | BH.SGPN.GN ---
Behaviors/Verbalizations/Mental Status: []Client alert and oriented, casually dressed and groomed. Eye contact fair. Motor activity appropriate. Speech within normal limits. Affect constricted, mood dysthymic. Thoughts linear, logical, no signs of hallucinations or delusions. Client Response/Progress/Benefit: []Client engaged participant as shown by active listening and contributing to discussion at times. Client contributed to the discussion of self-care and the consequences of not practicing self-care. Client helped the group discuss benefits of self-care. Worked with group to identify consequences of poor self-care which included: increased depression, increased anxiety, irritable, and difficulty functioning. Client participated in the discussion on debunking of myths about self-care. Client stated she struggles at engaging in self-care because feels guilty for asking for help. Client seemed to benefit from increased awareness of the importance of self-care and challenging common myths that prevent practicing self-care. Will continue IOP tx to increase consistent use of healthy coping skills, challenge distorted thoughts and prevent decompensation.
--- NOTE | 2020-11-11 09:05 | BH.SGPN.GN ---
Behaviors/Verbalizations/Mental Status: Eye contact is good. Motor activity is appropriate. Appearance is casual. Speech is Appropriate. Mood is anxious. Affect is congruent. Thoughts are linear and logical. No evidence of psychosis. Reviewed daily check in sheet and no reports of suicidal ideations or intent. Client Response/Progress/Benefit: Client was engaged and attentive throughout session. Client stated that her emotion of the day is positive. Client identified mental health wins of being able to help her friends, going grocery shopping, cleaning her dishes, and practicing self-care. Client voiced feeling as though she did not work on her goals this week, group and clinician aided client in recognizing her progress and cognitive distortion of minimizing. Client reported feeling better about her apartment, which has been a stressor. Client seemed to benefit from supportive group environment. Client reports that her general mood has been better per daily symptom tracker, reporting low depressed mood, anxiety/panic attacks, and agitation. Client and clinician identified goals of recognizing personal progress and working on getting laundry clean, to be discussed with individual counselor. Will continue IOP treatment to enhance self-worth and the application of healthy coping skills. Narrative Note: []
--- NOTE | 2020-11-11 10:08 | BH.SGPN.GN ---
Behaviors/Verbalizations/Mental Status: []Client alert and oriented, casually dressed and groomed. Eye contact good. Motor activity appropriate. Speech within normal limits. Affect congruent, mood anxious and euthymic. Thoughts linear, logical, no signs of hallucinations or delusions. Client Response/Progress/Benefit: []Client engaged in session AEB taking notes and contributing to discussion. Increased contribution compared to prior sessions which is progress. Client shared connecting with the importance of setting boundaries and noted this has been difficult as she struggles with not wanting t disappoint others. Shared ?it?s hard to set boundaries and love yourself when we know we are going to disappoint someone?. Client assisted group with identifying benefits of setting boundaries such as reduced stress, clearer guidelines and expectations, better able to get needs met, and increased self-esteem. Listened during psychoeducation on different types of boundaries and shared a personal example of how it feels when intellectual boundaries are violated. Client seemed to benefit from increased awareness of how boundaries impact mental health and the different types of boundaries there are. Will continue IOP tx to improve application of behavior activation skills for managing depressive symptoms, further improve mood stability, and prevent decompensation. Narrative Note: []
--- NOTE | 2020-11-11 11:10 | BH.SGPN.GN ---
Behaviors/Verbalizations/Mental Status: []Client alert and oriented, casual dress, hygiene appropriate. Eye contact fair. Motor activity appropriate. Speech within normal limits. Affect constricted, mood dysthymic. Thoughts linear, logical, no signs of hallucinations or delusions. Client Response/Progress/Benefit: []Client responded well to session, connecting with peers and receptive to supportive statements. Client engaged in the boundary self-assessment activity and attentive during psychoeducation on the different boundary styles. Client reported she struggles with setting boundaries at times because she believes it's her responsibility to take care of her supports. Client reported she connects most with porous boundary style. Client stated consequence of being porous results in other people walk all over her and will neglect own needs to help others. Client participated in brainstorming strategies to improve boundary setting. Client to continue IOP tx to increase consistent use of healthy coping, challenge distorted thoughts and prevent decompensation. Narrative Note: []
--- NOTE | 2020-11-12 15:01 | BH.MTP_ITS ---
Treatment Plan Review Date of Admission:: 10/16/20 Date of Treatment Plan Review:: 11/12/20 Admitting Diagnoses:: Major depressive disorder, recurrent, severe without psychosis F33.2; Social anxiety disorder; Rule out avoidant personality disorder Current Diagnoses:: Major depressive disorder, recurrent, severe without psychosis F33.2; Social anxiety disorder; Rule out avoidant personality disorder Patient's Response to Treatment:: Pt has responded well to treatment AEB pt consistently attending IOP sessions and her reduction of DSM-5 scores by 22% since admission. Pt contributes well to discussion and listens well to peers during group sessions. Pt applies coping skills outside of IOP and reports she has been functioning better at home. Pt reports use of opposite action and goal setting. Pt has increased self-awareness of negative thought patterns and is working on challenging negative self-talk. Pt also has been responding well to summarizing sessions which has helped client work on improving memory. Status of Current Problems and Symptoms: Pt's symptoms are ongoing. Pt continues to report symptoms of depression, although these symptoms have decreased since admission. Pt reports her motivation is improving and she is cleaning her house more. Pt currently struggling most with challenging negative thinking, low self- esteem, and minimizing her progress. Pt's anxiety continues to be moderate. Pt continues to struggle with setting boundaries, communicating her needs, and avoiding when overwhelmed. Pt is improving with using self-care and calming skills. Pt's current stressors include finances, cleaning her house, and gaining support. Problem #1 Problem Name:: Depressive symptoms, anhedonia, and loss of motivation. Status of Goals:: Objective 1- complete with ongoing work encouraged. Pt?s DSM-5 scores for depression decreased by 33% since admission. Pt has been consistent with attendance and highly engaged during group sessions. Pt reports practicing opposite action and is able to catch distortions with help of therapist. Pt's self-esteem and minimization continue to negatively impact pt. Objective 2- in progress. Pt has accomplished her personal goals each week. Pt?s goals have been focused on cleaning her house and pt reports her living room is the ?most open it?s been in a while.? Pt has also decorated for fall and is spending consistent time with her neighbor. Team Recommendations:: Treatment tx recommends that pt continues working on current goals with increased focus on challenging distortions and giving herself credit for accomplishments. Problem #2 Problem Name:: Anxiety, avoidance, lack of concentration, and ruminations. Status of Goals:: Objective 1- in progress. Pt?s DSM-5 scores for anxiety have decreased by 13% since admission. Pt has gained awareness of negative thought patterns that trigger increased anxiety and avoidance. Pt is working on using opposite action and deep breathing. Objective 2- In progress. Pt?s ability to retain information and memory have improved by 25% since admission per DSM-5 scores. Pt is able to summarize sevilla components after each individual session and she has been second-guessing herself less. Pt can benefit from ongoing work on this goal to further increase self-confidence and improve memory. Team Recommendations:: Treatment tx recommends pt to challenge herself to use coping skills in the moment and step outside of her comfort zone while sharing in group. Pt also encouraged to continue working on increasing self-confidence.
--- NOTE | 2020-11-13 09:05 | BH.SGPN.GN ---
Behaviors/Verbalizations/Mental Status: Eye contact is good. Motor activity is appropriate. Appearance is casual. Speech is appropriate. Mood is anxious. Affect is congruent. Thoughts are linear and logical. No evidence of psychosis. Reviewed daily check in sheet with no reports of suicidal ideations, plan, or intent. Client Response/Progress/Benefit: Client was engaged and provided insight during group session. Client reported her emotion of the day as ?apprehensive.? Discussed self doubt, stating feelings of being ?afraid of everything? and not being able to meet her goals. Client also discussed her avoidance of her apartment. Group discussed setting small goals regarding cleaning up her apartment and rewarding herself when she reached them, which client seemed to benefit from. Will continue IOP treatment to continue to improve self confidence and self worth, as well as promote small goal completion. Narrative Note: []
--- NOTE | 2020-11-13 10:15 | BH.SGPN.GN ---
Behaviors/Verbalizations/Mental Status: []Client alert and oriented, casually dressed and groomed. Eye contact good. Motor activity appropriate. Speech within normal limits. Affect constricted, mood anxious. Thoughts linear, logical, no signs of hallucinations or delusions. Client Response/Progress/Benefit: []Pt was an engaged participant in group discussion, providing input and was attentive during psychoeducation. Participated in short activity about automatic thoughts and shared that mood and past experiences can impact automatic thoughts. Group was primarily educational; therapist introduced and gave examples of the 10 cognitive distortions. Benefited from education and increased awareness of cognitive distortions and role that they play in negative thoughts and emotions. Pt reported connecting with mind-reading and emotional reasoning. Shared recently she used mind-reading, and this led to avoidance, but pt eventually addressed the issue. Will continue IOP tx to further decrease avoidance, improve overall functioning, and increase self-confidence. Narrative Note: []
--- NOTE | 2020-11-13 11:18 | BH.SGPN.GN ---
Behaviors/Verbalizations/Mental Status: []Eye contact is fair to good. Motor activity is appropriate. Appearance is casual. Speech is Appropriate. Mood is anxious, euthymic. Affect is congruent. Thoughts are linear and logical. No evidence of psychosis. Client Response/Progress/Benefit: []Pt was an active participant, taking notes and providing some input throughout group discussion and activity. Attentive during psychoeducation on cognitive distortions not discussed in previous group and providing more input throughout than in prior group. Noted connecting with distortion of personalization and overgeneralization. Pt was an active participant in Cognitive Distortions Jeopardy, providing some input and suggestions to small group, however remained mostly passive during this activity. Utilized notes from psychoeducation on cognitive distortions to assist peers in answering questions. Able to work with group to practice re-framing cognitive distortions to obtain points for the game. Expressed connecting with the examples used throughout the activity. Experiential activity was beneficial as it provided a way for patient to review notes and handouts during psychoeducation to answer questions for the game. Will continue in [facility] tx to further improve application of behavior activation skills, reduce avoidance, and furth improve small goal follow-through. Narrative Note: []
--- NOTE | 2020-11-15 10:10 | BH.SGPN.GN ---
Behaviors/Verbalizations/Mental Status: [] Eye contact is good. Motor activity is appropriate. Appearance is casual. Speech is Appropriate. Mood is depressed. Affect is flat. Thoughts are linear and logical. No evidence of psychosis Client Response/Progress/Benefit: [] Pt was an active participant in group discussion. Attentive during psychoeducation on Conflict Styles ( Avoidant, Competing, Accommodating, and Cooperative). Participated in interactive group discussion on why we tend to avoid conflict. Pt along with peers identified several reasons conflict is often avoided which included; don't want to deal with it, anxiety, it can be awkward, can cause more problems, don't want to get hurt, don't want to hurt others, and fear of rejection. Pt along with peers also identified the reasons why we need conflict which included; helps us set boundaries, advocacy, helps us express needs/emotions, and can improve relationships. The conflict styles she most often uses is accommodating as she tends to focus on other's needs. Benefited from increased awareness on conflict styles. Will continue in IOP to prevent decompensation, stabilize mood, and improve functioing. Narrative Note: []
--- NOTE | 2020-11-15 11:10 | BH.SGPN.GN ---
Behaviors/Verbalizations/Mental Status: []Client alert and oriented, casually dressed and groomed. Eye contact good. Motor activity appropriate. Speech within normal limits. Affect constricted, mood dysthymic. Thoughts linear, logical, no signs of hallucinations or delusions. Client Response/Progress/Benefit: []Client engaged in session AEB contributing to discussion and engaging in activity. Client did well to review current conflict style and its impact on mental health. Acknowledged the impact being accommodating and avoiding has on client?s mental health. Attentive and taking notes during discussion on strategies for more effectively managing conflict in personal life. Client participated in activity and did well, to express her ideas with peers. Client wants to work on expressing her emotions with words as client stated, ?I struggle with telling people my needs.? Appeared to benefit from gaining strategies to help client better manage conflict. Will continue IOP tx to reduce avoidance, increase distress tolerance skills, and improve self-confidence. Narrative Note: []
--- NOTE | 2020-11-15 14:09 | BH.MDN ---
Multi-Disciplinary Note - Note 45-min Individual Time Started:: 09:10 Date: 11/15/20 Purpose of session/treatment goals addressed:: To work on goal #1 objective #2 and goal #2 objective #1. Another goal was to use motivational interviewing to promote change behavior and challenge distortions reinforcing avoidance. Eye Contact:: Good Motor Activity:: Appropriate Appearance:: Casual Speech:: Soft Mood:: Dysthymic Affect:: Constricted Thoughts:: Circular, Other - difficulty formulating thoughts Staff Interventions:: thought challenging, motivational interviewing, psychoeducation on: - intrusive thoughts, CBT techniques, strengths perspective, reviewed DSM-5, goal setting, other - gave client homework Client Response:: Pt responded well to session, open to meeting with therapist. Pt reports that yesterday she felt extremely afraid that I'm not going to be able to function which led to pt avoiding and feeling more down today. Pt shared this feeling of intense fear was triggered by all the work that still needs done at pt's home. Pt talked about how she is currently avoiding her upstairs bathroom because it is so messy and the task feels insurmountable. Pt able to recognize her use of cognitive distortions and how these are reinforcing depression and avoidance. Pt responded well to motivational interviewing and thought challenging. Pt understands that although what she must do to improve is challenging and hard, it still is necessary for growth. Discussed using exposure therapy techniques to help pt sit with uncomfortable feelings rather than avoiding them. Reviewed calming skills pt can practice during exposure and set small goals for each day over the weekend. Pt did well to summarize the session and was taking notes throughout. Risks/Concerns:: Client denies any suicidal ideations, plan, or intent as of 11/18/20. Denies homicidal ideations. Progress Toward Goals/Plan:: Pt completed the DSM-5 self-assessment on 11/12/20 and her symptoms decreased by 22% overall with depression decreasing by 33% since admission. Today, pt shared I think I filled that out on a really good day as pt felt very anxious yesterday which has triggered negative thinking. Pt acknowledges that her functioning has improved at home and her symptoms are improving, however, pt's distorted thought patterns and avoidance continue to be a barrier to further progress. Will continue IOP tx to reduce avoidance, improve overall functioning, and replace negative thought patterns. Time Stopped:: 09:58
--- NOTE | 2020-11-18 10:15 | BH.SGPN.GN ---
Behaviors/Verbalizations/Mental Status: []Client alert and oriented, casually dressed and groomed. Eye contact fair. Motor activity appropriate. Speech within normal limits. Affect constricted, mood anxious. Thoughts linear, logical, no signs of hallucinations or delusions Client Response/Progress/Benefit: []Pt was a mostly passive participant AEB pt not providing input during discussions. Attentive during psychoeducation and taking notes. Appeared to connect with topic of personal pitfalls and how they can impede mental health treatment progress. Pt and peers also discussed reasons why overcoming pitfalls is so challenging. During experiential activity pt along with peers identified several pitfalls from the activity that are also associated with mental health. Pt shared her personal pitfalls include: negative self-talk, fear of failure and disqualifying the positives. Benefited from group by increasing awareness of pitfalls which can impact mental health. Pt progress could be hindered by pt continuing to engage in avoidant behaviors when anxious. Pt will continue in IOP tx to prevent decompensation, reduce use of unhealthy coping and improve consistent use of healthy coping skills.
--- NOTE | 2020-11-18 11:15 | BH.SGPN.GN ---
Behaviors/Verbalizations/Mental Status: []Client alert and oriented, casually dressed and groomed. Eye contact fair. Motor activity appropriate. Speech within normal limits. Affect flat, mood dysthymic and anxious. Thoughts linear, logical, no signs of hallucinations or delusions. Client Response/Progress/Benefit: []Client receptive of session, engaged throughout AEB client actively listening and contributing to discussion, as well as taking notes. Client completed worksheet identifying personal pitfalls impacting mental health progress. Client identified the following pitfalls: negative self-talk, fear of failure, and disqualifying the positives. Group learned different coping skills to help manage pitfalls. Client selected disqualifying the positives as the pitfall client wants to overcome. Client plans to work on this by writing down her wins to help keep track of positives. Benefited from identifying personal pitfalls and strategies to overcome these pitfalls. Client continues to struggle with challenging her negative self-talk which reinforces self-doubt and low self-esteem. Client will continue IOP tx to reduce avoidance, improve functioning, and replace distorted core beliefs. Narrative Note: []
--- NOTE | 2020-11-20 09:05 | BH.SGPN.GN ---
Behaviors/Verbalizations/Mental Status: []Client alert and oriented, casually dressed and groomed. Eye contact fair. Motor activity appropriate. Speech within normal limits. Affect flat, mood depressed. Thought blocking. no signs of hallucinations or delusions. Reviewed client?s symptom tracker, no risk for suicidal ideation, plan, or intent as of 11/20/20 Client Response/Progress/Benefit: []Client responded somewhat well to session, initially withdrawn, but eventually shared during check-in. Client reports feeling depressed this morning and self-reports on the symptom tracker that her mood and functioning have generally been worse. Client shared I don't know why I'm more depressed and reports concern that her medication is not working. After further prompting, it appears that client has been struggling to use coping skills outside of IOP and there was recent tension with a support person. Group members provided encouragement to client and helped client recognize mental health wins such as not canceling today and going to see her parents last night. Client's difficulty challenging negative thoughts and giving herself credit may continue to be a barrier to progress. Appeared to benefit from connecting with peers and challenging negative thoughts in the moment. Will continue IOP tx to prevent further decompensation, reduce avoidance, and improve functioning. Narrative Note: []
--- NOTE | 2020-11-20 10:15 | BH.SGPN.GN ---
Behaviors/Verbalizations/Mental Status: [] Eye contact is good. Motor activity is appropriate. Appearance is casual. Speech is Appropriate. Mood is anxious. Affect is congruent. Thoughts are linear and logical. No evidence of psychosis. Client Response/Progress/Benefit: [] Pt was an active participant in group discussion and activity. Attentive during psychoeducation on fixed mindset and fixed thinking. Participated with group in experiential activity which initially seemed impossible however worked with peers to come up alternative solutions while practicing the skills at looking at obstacle with growth mindset. Completed worksheet in which pt identified common fixed thoughts she has however did not turn in to therapist. Benefited from increased awareness of fixed thinking. Will continue in IOP to prevent decompensation, increase healthy coping, and maintain gains. Narrative Note: []
--- NOTE | 2020-11-20 11:10 | BH.SGPN.GN ---
Behaviors/Verbalizations/Mental Status: []Client alert and oriented, casually dressed and groomed. Eye contact good. Motor activity appropriate. Speech within normal limits. Affect congruent. mood anxious, dysthymic. Thoughts linear, logical, no signs of hallucinations or delusions. Client Response/Progress/Benefit: []Client engaged during activity and discussion AEB remaining attentive, providing increased input, and taking notes throughout. Reported struggling with fixed thoughts in her own life which often leads to giving up or not trying. Client did well to engage as group worked on identifying characteristics and benefits of adopting a growth mindset. Attentive as fellow participants worked on reframing the example fixed thoughts into growth mindset thoughts. Client worked in small group to apply skills learned to reframe own personal fixed thoughts. Appeared to benefit from suggestions provided by peers as client indicated struggling to reframe thoughts identified. Reframed personal fixed thought of ?I have to do it perfectly or it doesn?t count? with growth mindset thought of ?It doesn?t have to be perfect as long as I keep trying?. Noted that this would aid in allowing her to feel less pressured and increase willingness to try things even if they aren?t perfect. Continues to struggle with significant self-doubt and distorted thinking patterns which impede ability ot make consistent progress. Benefitted from discussing benefits of growth mindset and brainstorming strategies for prompting growth-mindset. Will continue IOP tx to continue to promote active thought challenging, improve active application of behavior activation skills, and continue to reduce depressive sx. Narrative Note: []
--- NOTE | 2020-11-25 09:05 | BH.SGPN.GN ---
Behaviors/Verbalizations/Mental Status: [] Eye contact is good. Motor activity is appropriate. Appearance is casual. Speech is Appropriate. Mood is depressed. Affect is flat. Thoughts are linear and logical. No evidence of psychosis. Reviewed daily check in sheet and no reports of suicidal ideations or intent. Client Response/Progress/Benefit: [] Pt participated when prompted. Attentive. Emotion for today is depressed. Daily symptom notes 4/5 for irritability and 2/5 for depression. States that she has been avoiding most tasks for the past week. I'm avoiding everything. Looking for reasons not to be in her house as its a constant reminder of the tasks she needs to complete (cleaning, organizing). Reports she is finding ways to avoid which is only making her mental health worse. Unable to identify the obstacle to start working on tasks except to say she is not motivated. Group provided several suggestions and appropriate feedback. Pt is receptive however in the past has not followed through with helpful feedback. Encouraged to seek external help such as cleaning services or support to help and hold her accountable. Limited progress noted. Limited benefit from group as she struggles with taking suggestions and feedback. No change. Will continue in IOP to prevent decompensation and provide support. Narrative Note: []
--- NOTE | 2020-11-25 13:36 | BH.MDN_ITS ---
Multi-Disciplinary Note - Note 60-min Individual Time Started:: 10:40 Date: 11/25/20 Purpose of session/treatment goals addressed:: To challenge negative self-talk, distortions, and avoidance behaviors that have been reinforcing depression, anxiety, and hopelessness. Eye Contact:: Fair Motor Activity:: Appropriate Appearance:: Casual Speech:: Soft Mood:: Anxious, Dysthymic Affect:: Flat Thoughts:: Circular, Other - thought blocking Staff Interventions:: thought challenging, motivational interviewing, CBT techniques, strengths perspective, goal setting Client Response:: Client responded well to session, open to meeting with therapist. Client reports she has not been doing well and not functioning. Client shared she has been avoiding her apartment and staying at her neighbor's house. Client became very negative about herself and her ability to cope/function. Client shared I'm a disappointment I'm not going to be able to function again and I can't do this. Client receptive to thought challenging and therapist wrote down client's distortions on notecards. Therapist helped client reframe these distortions and wrote more realistic messages on the back of her notecards. Client stated one of her biggest worries is her inability to express her thoughts due to her thoughts being so scattered. Client was encouraged to rule out anything medical by reaching out to her doctor and was also provided psychoeducation on how anxiety impacts concentration and memory. After processing and thought challenging, client was ready to discuss goals. Client willing to ask her neighbor to help client clean her apartment. Discussed the pros and cons of asking for help vs. not asking for help. Pros included reducing stress, having a commercial cleaner space, gaining independence, and improving her relationship with her friend. Cons included feeling like a burden when she asks for help and losing some of the codependent benefits client has from staying with her neighbor. Therapist also provided support as client accomplished del eted voicemails, a task she has been avoiding, during session. Client was encouraged to ask her friend for help today and client understands the consequences of waiting to ask for help. Risks/Concerns:: Client denies any suicidal ideations, plan, or intent as of 11/25/20. Client denies any homicidal ideations. Progress Toward Goals/Plan:: Client reports decompensation over the past two weeks. Client no called no showed one day last week, so client missed her individual session last week. Client admits that she has been avoiding everything. Client endorses a depressed mood, lack of motivation, lack of energy, avoidance behaviors, constant worries and ruminations, and inability to function at home. Client receptive to gentle thought challenging from therapist, goal setting, and encouragement to reach out to supports for help with cleaning. Will continue IOP tx to prevent further decompensation and challenge distorted thought patterns. Time Stopped:: 11:40
== END 2020-11-28 23:59 ==
LOC: BHIOP 08:28
PROVIDERS: PCP Family Medicine; Referring Provider Psychiatry & Neurology Psychiatry; Visit Provider Psychiatry & Neurology Psychiatry
DX: F33.2 Major depressive disorder, recurrent severe without psychotic features (principal); F41.8 Other specified anxiety disorders
CPT/HCPCS: H2012; H2020; S9480; 90832; 90834; 90837

== ENCOUNTER → 2020-11-11 14:03 | Outpatient (CLI) | payer MEDICAID, SELFPAY ==
[2020-11-11 15:48] LABS: Vitamin D,25 Hydroxy 45.2 ng/mL
[2020-11-11 15:53] LABS: Thyroid Stim Hormone (TSH) 2.82 uIU/mL (0.358-3.74)
== END ==
PROVIDERS: PCP Family Medicine; Visit Provider Psychiatry & Neurology Psychiatry
DX: E55.9 Vitamin D deficiency, unspecified (principal)
CPT/HCPCS: 36415; 82306; 84443

== ENCOUNTER 2020-12-04 09:11 | Outpatient (RCR) | payer MEDICAID, SELFPAY ==
[2020-11-29 00:33] VITALS: BP 143/86; PULSE 95; BMI 28.3
--- NOTE | 2020-12-04 15:38 | BH.COMM ---
Communication Note - Communication with Client Communication Note: Pt's attendance has been variable as pt had two recent no call no shows and pt left early from group today without communicating to staff. Pt denied any suicidal ideations, plan, or intent on her daily symptom tracker today. IOP therapist will continue to reach out to pt, but currently unable to leave any messages due to mailbox being full.
--- NOTE | 2020-12-05 09:00 | BH.SGPN.GN ---
Behaviors/Verbalizations/Mental Status: []Client alert and oriented, casually dressed and groomed. Eye contact good. Motor activity appropriate. Speech within normal limits. Affect flat, mood depressed. Thoughts linear, logical, no signs of hallucinations or delusions. Reviewed client?s symptom tracker, no risk for suicidal ideation, plan, or intent as of 12/05/20 Client Response/Progress/Benefit: []Client responded well to session, at first declining to share, but then changed her mind. Client reports feeling depressed this morning and shared she feels confused by what my problem is. Client reports she wants someone to give her direction in life, but client stated I don't even know if I'd follow that. Client admits to avoiding which has been making her mental health symptoms worse. Progress noted that client attended IOP tx today after leaving early yesterday. Client receptive to feedback from peers on how to manage depression and challenge negative thought patterns. Appeared to benefit from words of encouragement and not isolating today. Client's symptoms have increased over the past two weeks and her attendance has been sporadic. Will continue IOP tx to prevent further decompensation, reinforce healthy coping skills, and gain healthy support. Narrative Note: []
--- NOTE | 2020-12-05 14:14 | BH.MDN_ITS ---
Multi-Disciplinary Note - Note 45-min Individual Time Started:: 10:35 Date: 12/05/20 Purpose of session/treatment goals addressed:: To process recent triggers and worsening symptoms, to address avoidance behaviors, and to provide emotional support. Another goal was to address internalized homophobia, negative core beliefs, and fears. Eye Contact:: Fair Motor Activity:: Slowed Appearance:: Casual Speech:: Soft Mood:: Anxious, Depressed Affect:: Flat Thoughts:: Circular, Other - thought blocking, No evidence of hallucinations/delusions noted Staff Interventions:: thought challenging, motivational interviewing, strengths perspective, other - Gave resources on spirituality and sexual orientation. Client Response:: Client responded well to session, open to meeting with therapist. Client admits that she has been avoiding IOP as well as responsibilities at home. Client reports she left IOP yesterday because I just needed to drive around. Client recognizes she has been decompensating over the past few weeks. It was brought to light that this decompensation was due to client developing romantic feelings for her female neighbor. This has triggered fear, confusion, and depression as client's lalitha tells client that attraction to the same sex is a sin. Client has been struggling with this internal conflict for years. Client reports her feelings for women go back to at least 15 years ago, but she has always feared this. Client states she is extremely fearful of the consequences that might come with admitting she is gage. Client shared she feels torn stating on one hand I feel like if I explore this I'm a failure and on the other hand if I don't then I'll be lost. Receptive to gentle thought challenging and motivational interviewing. Client somewhat receptive to talking with individuals in the LGBTQ community who also have a strong lalitha. Client reports she is interested in hearing how being gage and having lalitha can go together. Discussed internalized homophobia and client connected with this. Client gained awareness of how her internalized homophobia has reinforced self- hate and low self-esteem over the years. Client reminded that she is the only one who has the right to decide her sexual orientation and if/when she comes out. Client given resources on LGBTQ and restoration. Risks/Concerns:: Client denies any suicidal ideations, plan, or intent as of 12/05/20. Client denies any homicidal ideations. Client's symptoms of depression and anxiety have worsened in the past two weeks and there is concern for further decompensation due to client's avoidance. Progress Toward Goals/Plan:: Client continues to report decompensation and her attendance has been sporadic. Client admits that she has been avoiding IOP and not using coping skills outside of IOP. Client is depressed, unable to verbalize her thoughts, and is struggling with her sexual orientation and what this means for her restoration. Client has increased sleep, anhedonia, lack of motivation, and is not functioning at home. Long discussion of options to best help client and the importance of being around support rather than isolating. Will continue IOP tx to prevent further decompensation, reduce isolation, and gain healthy support. IOP therapist will discuss plan of care with tx team as client was scheduled to discharge in the coming week. Time Stopped:: 11:20
--- NOTE | 2020-12-09 09:24 | BH.DS ---
Discharge Summary - Demographics Date of Admission:: 10/16/20 Discharge Date: 12/09/20 Presenting Problems at Admission:: Client is a 44-year-old female with a history of depression and social anxiety. Client was referred by her PCP due to worsening mental health symptoms that were impacting client's ability to function. Client previously participated in IOP tx from 01/08/20-03/04/20. At admission, client shared she had been struggling for months and that I'm not functioning very well. Client reported she has not been doing chores, personal hygiene decreased, and she was avoiding her apartment due to the mess. Client endorsed a depressed mood, increased appetite with 25 pound weight gain, lack of motivation, loss of energy, increased sleep, lack of concentration, hopelessness, and worthlessness. Client denied suicidal ideations, but does endorse passive thoughts of . Client denied any homicidal ideations. Client has history of social anxiety and client avoids things that make her anxious. Client's symptoms were impacting her daily functioning. 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 Client called and reported wanting to voluntarily discharge. Client would like to continue with outpatient counseling only at this time. - Treatment Progress During Treatment & Response: Client demonstrated variable progress in IOP as client was progressing well for the first four weeks, but then began to decompensate. During the last few weeks, client often reported lack of follow through with her goals, struggled with applying healthy coping skills, and reported lack of confidence in her abilities. Client was an engaged participant at times, and she appeared to benefit from peer connection. However, client often reported ?not knowing what to say? during discussions which caused client to shut down and eventually isolate herself. Client?s attendance became inconsistent and client self-reported avoidance. Client recognized that her decompensation was triggered by internal conflict between client questioning her sexual orientation and her lalitha. Client will continue with outpatient counseling and psychiatry. Issues Still to be Addressed:: Client can benefit from ongoing mental health counseling to reinforce healthy coping skills, promote accountability, and combat distortions that reinforce low self-esteem. Client shared during her last individual session that she is ready to talk with someone about her struggles with her sexual orientation and how this fits into her lalitha. 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 Client has a long-standing history of avoidance, isolation, and negative thought patterns and can benefit from addressing these issues in outpatient cousneling. Discharge Recommendations/Instructions:: Client will continue seeing her outpatient psychiatrist at [facility] and client reports she has an appointment in three weeks. Client used to see Scott Weir at [facility] for individual therapy, but client would like to see a therapist that specializes in LGBTQ+ issues. Client was given resources for [facility], [facility], and [facility]. These resources were emailed to client since she discharged over the phone. Discharge Handout: Complete Discharge Handout with client on aftercare options and continuity of care.
== END 2020-12-09 08:40 | disposition home or self-care (01) ==
LOC: BHIOP 09:11
PROVIDERS: PCP Family Medicine; Referring Provider Psychiatry & Neurology Psychiatry; Visit Provider Psychiatry & Neurology Psychiatry
DX: F33.2 Major depressive disorder, recurrent severe without psychotic features (principal); F41.9 Anxiety disorder, unspecified
CPT/HCPCS: H2012; S9480; 90834

== ENCOUNTER 2023-11-05 09:16 | Emergency (ER) | payer MEDICARE, MEDICAID, SELFPAY ==
[2023-11-05 09:18] VITALS: BP 166/77; PULSE 89; RESP 16; TEMP 36.1; O2SAT 99; BMI 30.5
--- NOTE | 2023-11-05 09:18 | NURSING ---
NO OLD EKGS
--- NOTE | 2023-11-05 09:33 | ED.RN ---
PT STATES SHE HAS NOT BEEN TAKING HER MEDICATION REGULARLY FOR THE PAST 2 WEEKS
--- NOTE | 2023-11-05 09:35 | EKG12_ITS ---
Test Reason : CP Blood Pressure : / mmHG Vent. Rate : 082 BPM Atrial Rate : 082 BPM P-R Int : 148 ms QRS Dur : 074 ms QT Int : 398 ms P-R-T Axes : 051 015 013 degrees QTc Int : 464 ms Normal sinus rhythm Normal ECG Confirmed by PAUL PEREZ, FOSTER ([id number]), avid editor NICK MENJIVAR ([id number]) on 11/08/2023 6:45:59 AM Referred By: Confirmed By:FOSTER MILLER MD
--- NOTE | 2023-11-05 09:40 | RAD_ITS ---
STUDY: X-RAY CHEST REASON FOR EXAM: Female, 48 years old. Chest pain TECHNIQUE: Single AP portable view of the chest. COMPARISON: None. FINDINGS: EKG electrodes are seen. The lungs are clear and expanded. There is no demonstrated pleural abnormality. Normal size heart. Normal mediastinum and loi. Normal visualized pulmonary arteries. Normal visualized aortic arch and descending thoracic aorta. Normal visualized thoracic spine. Normal visualized ribs, clavicles, and shoulders. There is no demonstrated abnormality of the visualized soft tissue structures of the upper abdomen. RAD/Chest 1 View (Portable) IMPRESSION: Normal x-ray examination of the chest. Electronically Signed: Geoffrey Reyes MD at 10:16 EDT ,
[2023-11-05 09:51] LABS: Absolute Lymphocyte Count 1.74 X10^3/uL (0.83-4.51); Absolute Neutrophil Count 3.3 X10^3/uL (2.0-7.7); Basophil# 0.05 X10^3/uL; Basophil% 0.9 % (0-1); Eosinophil# 0.16 X10^3/uL; Eosinophils% 2.8 % (0-5); Hematocrit 42.1 % (37-47); Hemoglobin 13.9 g/dL (12.0-15.0); Lymphocyte # 1.74 X10^3/ul (0.83-4.51); Lymphocyte % 30.3 % (19-41); Mean Corpuscular Hgb 30.3 pg (27.0-32.0); Mean Corpuscular Volume 91.9 fL (81-99); Mean Platelet Vol. 9.4 fl (6.2-12.0); Monocyte# 0.44 X10^3/uL; Monocyte% 7.7 % (0-10); NRBC Flagged by Analyzer 0 % (0-5); Neutrophil # 3.34 X10^3/uL (2.7-7.7); Neutrophil % 58.1 % (47-70); Platelet Count 416 K/mm3 (150-450); RBC Distribution Width CV 12.5 % (11.6-14.6); RBC Distribution Width SD 42.1 fl (35.1-43.9); Red Blood Count 4.58 M/mm3 (4.2-5.4); White Blood Count 5.7 K/mm3 (4.4-11.0)
[2023-11-05 10:09] LABS: Anion Gap 6 (5-15); BUN 14 mg/dL (7-18); Calcium,Total 9.1 mg/dL (8.5-10.1); Chloride 108 mmol/L (98-107); EST Glomerular Filtration Rate 63 mL/min (>60); Est Glom Filt Rate - Afr Amer 76 mL/min (>60); Estimated Creatinine Clearance 70.72 ml/min; Glucose 99 mg/dL (74-106); Potassium 3.9 mmol/L (3.5-5.1); Sodium Level 137 mmol/L (136-145); Troponin-I HS (w/2H Reflex) 28 pg/mL (3.0-54.0)
[2023-11-05 10:27] LABS: BNP,B-Type NATRIURETIC PEPTIDE 22.1 pg/mL (0-100)
[2023-11-05 11:13] VITALS: BP 127/90; PULSE 78; RESP 18; O2SAT 97
[2023-11-05 11:41] LABS: Reflex Troponin-HS? (from REC) Y
[2023-11-05 12:22] LABS: Troponin-I HS 26 pg/mL (3.0-54.0)
[2023-11-05 12:37] VITALS: BP 127/90; PULSE 65; RESP 18; O2SAT 100
--- NOTE | 2023-11-05 13:28 | ED.VIS.CHEST ---
HPI History of Present Illness Chief Complaint: Chest Pain Narrative Narrative: Patient is a 40-year-old female with past medical history hypercholesterolemia, avoidant personality disorder, hypothyroidism who presented to the emerged part with a chief complaint of chest pain. According to the patient yesterday around 3 PM she developed chest pain that was constant nothing made this better or worse she states that prior to her coming here this morning her symptoms completely resolved. She states that she has not had anything like this in the past and did some searching on Internet prompting her to come here for further evaluation management. [facility] Medical History Hypercholesteremia Avoidant personality disorder Hypothyroidism Social anxiety disorder Major depressive disorder, recurrent severe without psychotic features Home Medications ?Medication ?Instructions ?Recorded ?Last Taken ?Type levothyroxine 75 mcg tablet 75 mcg PO DAILY 01/10/20 Unknown History aripiprazole 15 mg tablet (Abilify) 15 mg PO DAILY 10/16/20 Unknown History fluoxetine 40 mg capsule 80 mg PO DAILY 10/16/20 Unknown History Allergy/AdvReac Type Severity Reaction Status Date / Time No Known Allergies Allergy Verified 11/05/23 09:18 Social History Smoking Status: Never smoker ROS ROS ED ROS Narrative Constitutional: Denies any fevers, chills, headaches, lightheadedness, dizziness Eyes: Denies change in vision double vision blurry vision Cardiovascular: Complains of chest pain as noted above denies palpitations Respiratory: Denies coughing wheezing shortness of breath Abdomen: Denies abdominal pain nausea vomit diarrhea : Denies any urinary symptoms Neurological: Denies numbness, weakness, tingling Skin: Denies rashes or lesions EXAM Physical Exam Narrative Exam Narrative: General: Patient was lying in bed rest comfortably did not appear to be in acute distress Head: Atraumatic, normocephalic Eyes: PERRL bilaterally, EOMI bilateral, no conjunctival injection noted Neck: Soft, supple, trachea midline Cardiovascular: Regular rate and rhythm noted no murmurs gallops rubs noted Respiratory: Clear to auscultation bilaterally no rales rhonchi wheeze noted Abdomen: Soft, nondistended, nontender to palpation, bowel sounds present for Extremities: +5/5 strength noted in the bilateral upper and lower extremities, radial pulses +2/4 in the bilateral upper extremities, no pedal edema no exam Neurological: Patient following commands knew that she was at [facility] year is 2023 Skin: Warm, dry, intact Const Vital Signs: 11/05/23 09:18 11/05/23 09:30 11/05/23 09:41 Temperature 97.0 F L Temperature Source Temporal Pulse Rate 89 Respiratory Rate 16 Respiratory Pattern Normal Blood Pressure 166/77 H Blood Pressure Mean 106 Pulse Ox 99 Oxygen Delivery Method Room Air Room Air 11/05/23 11:13 11/05/23 12:37 Temperature Temperature Source Pulse Rate 78 65 Respiratory Rate 18 18 Respiratory Pattern Blood Pressure 127/90 H 127/90 H Blood Pressure Mean 102 102 Pulse Ox 97 100 Oxygen Delivery Method Room Air Room Air MDM MDM MDM Narrative Medical decision making narrative: Patient is a 48-year-old female who presented to the emergency department the chief complaint of chest pain that was constant since 3 PM yesterday. Patient will have workup performed here on the differential diagnosis includes but not limited to ACS, GERD, anxiety, panic attack. Once workup is obtained and reviewed she will be reevaluated. Patient's CBC reviewed was largely unremarkable no evidence of leukocytosis white blood count normal at 5.7, hemoglobin stable 13.9, platelet count was normal at 416. Patient's sodium normal 137, potassium normal at 3.9, creatinine normal at 1. Patient's troponin normal at 28 with a delta troponin obtained normal at 26. Patient's EKG was reviewed as well which showed sinus rhythm with a rate of 82 bpm. Patient's BMP normal at 22. Patient's chest x-ray was reviewed as well independently by myself and the radiologist which showed no acute cardiopulmonary processes. Patient's heart score was noted to be 2. At this point time do believe the patient is stable to be discharged home. Patient was encouraged to follow-up with her primary care physician outpatient setting. She was encouraged return with worsening symptoms or any concerns. Patient is agreeable with this plan all question concerns answered she is discharged home in stable condition. Lab Data Labs: Laboratory Results - last 24 hr 11/05/23 11/05/23 09:30 12:00 WBC 5.7 RBC 4.58 Hgb 13.9 Hct 42.1 MCV 91.9 MCH 30.3 MCHC 33.0 RDW Std Deviation 42.1 RDW Coeff of Sonia 12.5 Plt Count 416 MPV 9.4 Immature Gran % (Auto) 0.200 Neut % (Auto) 58.1 Lymph % (Auto) 30.3 Dickinson % (Auto) 7.7 Eos % (Auto) 2.8 Baso % (Auto) 0.9 Absolute Neuts (auto) 3.3 Absolute Lymphs (auto) 1.74 Nucleated RBC % 0 Sodium 137 Potassium 3.9 Chloride 108 H Carbon Dioxide 23.0 Anion Gap 6 BUN 14 Creatinine 1.00 Estim Creat Clear Calc 70.72 Est GFR (MDRD) Af Amer 76 Est GFR (MDRD) Non-Af 63 BUN/Creatinine Ratio 14.0 Glucose 99 Calcium 9.1 Troponin I High Sens 28 26 B-Natriuretic Peptide 22.1 Radiography Diagnostic Testing: Clinical Impression(s) from Imaging Studies Chest X-Ray 11/05/23 09:40 IMPRESSION: Normal x-ray examination of the chest. Electronically Signed: Geoffrey Reyes MD at 10:16 EDT , Discharge Plan Triage Chief Complaint: Chest Pain ED Provider: Claeb Luong Dx/Rx/DC Orders Clinical Impression: Chest pain Prescriptions: No Action levothyroxine 75 MCG tablet 75 mcg PO DAILY fluoxetine 40 mg capsule 80 mg PO DAILY Patient Comments: TAKE 1 CAPSULE BY MOUTH ONCE DAILY aripiprazole [Abilify] 15 mg Tablet 15 mg PO DAILY Primary Care Provider: Tavo Winslow Referrals: Tavo Winslow MD [Primary Care Provider] - Activity Restrictions/Additional Instructions: Follow-up with your primary care physician outpatient setting. Return with worsening symptoms or any other concerns. Print Language: Belarusian Disposition Disposition: Home, Self Care
[2023-11-05 13:43] VITALS: PULSE 68; RESP 18; O2SAT 100
== END 2023-11-05 13:43 | disposition home or self-care (01) ==
PROVIDERS: Emergency Provider Emergency Medicine; PCP Family Medicine; Visit Provider Emergency Medicine
DX: R07.9 Chest pain, unspecified (principal); E78.00 Pure hypercholesterolemia, unspecified; E03.9 Hypothyroidism, unspecified; Z79.899 Other long term (current) drug therapy; F32.9 Major depressive disorder, single episode, unspecified
CPT/HCPCS: 71045; 80048; 83880; 84484; 85025; 93005; 99284; A4216